=== PATIENT | female | born 1995 | race Caucasian/White ===

== ENCOUNTER 2017-07-13 18:40 | Emergency (ER) | payer SELFPAY ==
--- NOTE | 2017-07-13 21:38 | EDM.PDOC ---
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 Patient indicates she is now cramping and bleeding like a menstrual period like to be evaluated] Review of systems: As per history of present illness and below otherwise all systems reviewed and negative. Past medical history: As per history of present illness and as reviewed below otherwise noncontributory. Surgical history: As per history of present illness and as reviewed below otherwise noncontributory. Social history: No reported history of drug or alcohol abuse. Family history: As per history of present illness and as reviewed below otherwise noncontributory. Physical exam: HEENT: Atraumatic, normocephalic, pupils reactive, negative for conjunctival pallor or scleral icterus, mucous membranes moist, throat clear, neck supple, nontender, trachea midline. Lungs: Clear to auscultation, breath sounds equal bilaterally, chest nontender. Heart: S1S2, regular, negative for clicks, rubs, or JVD. Abdomen: Soft, nondistended, nontender. Negative for masses or hepatosplenomegaly. Negative for costovertebral tenderness. Pelvis: Stable nontender. Genitourinary: Deferred. Rectal: Deferred. Extremities: Atraumatic, negative for cords or calf pain. Neurovascular unremarkable. Neuro: Awake, alert, oriented. Cranial nerves II through XII unremarkable. Cerebellum unremarkable. Motor and sensory unremarkable throughout. Exam nonfocal. Global assessment is benign save the subjective complaint as noted in history of present illness HCG was negative ultrasound no showed no sign of , neither remnant nor missed AB. Diagnostics: [HCG, UA, transvaginal ultrasound,] Therapeutics: [] Impression: [Vaginal bleeding] Plan: [Follow-up with INCUBATOR TENDER] Definitive disposition and diagnosis as appropriate pending reevaluation and review of above. abdominal Pain Score (Numeric/FACES): 6 - Related Data Allergies Allergy/AdvReac Type Severity Reaction Status Date / Time cefaclor [From [facility]] Allergy Anaphylactic Verified 11/21/13 12:50 Shock Sulfa (Sulfonamide Allergy Anaphylactic Verified 03/21/14 14:58 Antibiotics) Shock Home Meds: Home Meds . [No Known Home Meds] 07/13/17 [History] Past Medical History HEENT History: Reports: None Cardiovascular History: Reports: None Respiratory History: Reports: None Gastrointestinal History: Reports: None Genitourinary History: Reports: None INCUBATOR TENDER History: Reports: Musculoskeletal History: Reports: None Neurological History: Reports: None Psychiatric History: Reports: None Endocrine/Metabolic History: Reports: Diabetes, Type I Other Endocrine/Metabolic History: no insulin Hematologic History: Reports: None Oncologic (Cancer) History: Reports: None Dermatologic History: Reports: None - Infectious Disease History Infectious Disease History: Reports: None - Past Surgical History GI Surgical History: Reports: None Female Surgical History: Reports: None Social & Family History - Family History Family Medical History: Noncontributory - Tobacco Use Smoking Status *Q: Former Smoker Used Tobacco, but Quit: Yes Month Tobacco Last Used: may 2017 Second Hand Smoke Exposure: No - Caffeine Use Caffeine Use: Reports: None - Alcohol Use Days Per Week of Alcohol Use: 0 - Recreational Drug Use Recreational Drug Use: No ED ROS GENERAL - Review of Systems Review Of Systems: See Below (History of present illness) ED EXAM, GENERAL - Physical Exam Exam: See Below (History of present illness) Course - Vital Signs Last Recorded V/S: Last Vital Signs Temp 37.1 C 07/13/17 19:07 Pulse 77 07/13/17 19:07 Resp 14 07/13/17 19:07 BP 98/62 07/13/17 19:07 Pulse Ox 96 07/13/17 19:07 - Orders/Labs/Meds Orders: Active Orders 24 hr Category Date Time Status OB 1st Tri Sgl 1st Gest [US] Stat Exams 07/13/17 19:11 Taken CULTURE URINE [RM] Stat Lab 07/13/17 19:27 Received Labs: Laboratory Tests 07/13/17 07/13/17 07/13/17 Range/Units 19:27 19:53 19:53 WBC 7.10 (4.0-11.0) K/uL RBC 4.27 L (4.30-5.90) M/uL Hgb 13.2 (12.0-16.0) g/dL Hct 39.8 (36.0-46.0) % MCV 93.2 (80.0-98.0) fL MCH 30.9 (27.0-32.0) pg MCHC 33.2 (31.0-37.0) g/dL RDW Std Deviation 44.3 (28.0-62.0) fl RDW Coeff of Shaun 13 (11.0-15.0) % Plt Count 194 (150-400) K/uL MPV 10.70 (7.40-12.00) fL Neut % (Auto) 49.6 (48.0-80.0) % Lymph % (Auto) 36.3 (16.0-40.0) % [place] % (Auto) 11.3 (0.0-15.0) % Eos % (Auto) 2.5 (0.0-7.0) % Baso % (Auto) 0.3 (0.0-1.5) % Neut # (Auto) 3.5 (1.4-5.7) K/uL Lymph # (Auto) 2.6 H (0.6-2.4) K/uL [place] # (Auto) 0.8 (0.0-0.8) K/uL Eos # (Auto) 0.2 (0.0-0.7) K/uL Baso # (Auto) 0.0 (0.0-0.1) K/uL Nucleated RBC % 0.0 /100WBC Nucleated RBCs # 0 K/uL HCG, Quant < 1.2 mIU/mL Urine Color YELLOW Urine Appearance SLT CLOUDY Urine pH 6.5 (5.0-8.0) Ur Specific [place] 1.020 (1.001-1.035) Urine Protein NEGATIVE (NEGATIVE) mg/dL Urine Glucose (UA) NEGATIVE (NEGATIVE) mg/dL Urine Ketones NEGATIVE (NEGATIVE) mg/dL Urine Occult Blood LARGE H (NEGATIVE) Urine Nitrite NEGATIVE (NEGATIVE) Urine Bilirubin NEGATIVE (NEGATIVE) Urine Urobilinogen 0.2 (<2.0) EU/dL Ur Leukocyte Esterase NEGATIVE (NEGATIVE) Urine RBC 0-3 (0-2/HPF) Urine WBC 2-4 (0-5/HPF) Ur Epithelial Cells FEW (NONE-FEW) Amorphous Sediment MODERATE (NEGATIVE) Urine Bacteria FEW (NEGATIVE) Blood Type 07/13/17 Range/Units 19:53 WBC (4.0-11.0) K/uL RBC (4.30-5.90) M/uL Hgb (12.0-16.0) g/dL Hct (36.0-46.0) % MCV (80.0-98.0) fL MCH (27.0-32.0) pg MCHC (31.0-37.0) g/dL RDW Std Deviation (28.0-62.0) fl RDW Coeff of Shaun (11.0-15.0) % Plt Count (150-400) K/uL MPV (7.40-12.00) fL Neut % (Auto) (48.0-80.0) % Lymph % (Auto) (16.0-40.0) % [place] % (Auto) (0.0-15.0) % Eos % (Auto) (0.0-7.0) % Baso % (Auto) (0.0-1.5) % Neut # (Auto) (1.4-5.7) K/uL Lymph # (Auto) (0.6-2.4) K/uL [place] # (Auto) (0.0-0.8) K/uL Eos # (Auto) (0.0-0.7) K/uL Baso # (Auto) (0.0-0.1) K/uL Nucleated RBC % /100WBC Nucleated RBCs # K/uL HCG, Quant mIU/mL Urine Color Urine Appearance Urine pH (5.0-8.0) Ur Specific [place] (1.001-1.035) Urine Protein (NEGATIVE) mg/dL Urine Glucose (UA) (NEGATIVE) mg/dL Urine Ketones (NEGATIVE) mg/dL Urine Occult Blood (NEGATIVE) Urine Nitrite (NEGATIVE) Urine Bilirubin (NEGATIVE) Urine Urobilinogen (<2.0) EU/dL Ur Leukocyte Esterase (NEGATIVE) Urine RBC (0-2/HPF) Urine WBC (0-5/HPF) Ur Epithelial Cells (NONE-FEW) Amorphous Sediment (NEGATIVE) Urine Bacteria (NEGATIVE) Blood Type AB POSITIVE Departure - Departure Time of Disposition: 21:38 Disposition: Home, Self-Care 01 Condition: Good Clinical Impression: Vaginal discharge - Discharge Information Referrals: PCP,None [Primary Care Provider] - Additional Instructions: The following information is given to patients seen in the emergency department who are being discharged to home. This information is to outline your options for follow-up care. We provide all patients seen in our emergency department with a follow-up referral. The need for follow-up, as well as the timing and circumstances, are variable depending upon the specifics of your emergency department visit. If you don't have a primary care physician on staff, we will provide you with a referral. We always advise you to contact your personal physician following an emergency department visit to inform them of the circumstance of the visit and for follow-up with them and/or the need for any referrals to a consulting specialist. The emergency department will also refer you to a specialist when appropriate. This referral assures that you have the opportunity for follow-up care with a specialist. All of these measure are taken in an effort to provide you with optimal care, which includes your follow-up. Under all circumstances we always encourage you to contact your private physician who remains a resource for coordinating your care. When calling for follow-up care, please make the office aware that this follow-up is from your recent emergency room visit. If for any reason you are refused follow-up, please contact the [facility] Emergency Department at and asked to speak to the emergency department charge nurse. Follow-up with your primary care provider or INCUBATOR TENDER as discussed Return to ED as needed as discussed - My Orders Last 24 Hours: My Active Orders 07/13/17 19:11 OB 1st Tri Sgl 1st Gest [US] Stat 07/13/17 19:27 CULTURE URINE [RM] Stat - Assessment/Plan Last 24 Hours: My Active Orders 07/13/17 19:11 OB 1st Tri Sgl 1st Gest [US] Stat 07/13/17 19:27 CULTURE URINE [RM] Stat
[2017-07-13 21:48] VITALS: BP 103/73
--- NOTE | 2017-07-14 16:12 | US ---
EXAM DATE: 07/13/17 PATIENT'S AGE: 22 Patient: SHANNON PERALES Facility: [place], [place] Site . Site : 1995 Study: US OB Pelvis [id number] 9:00:47 PM Ordering Physician: Doctor Palomo Final Report: Indication: Vaginal bleeding. Last menstrual period not stated. Findings: There is no evidence of an intrauterine gestation and the endometrium is not abnormally thickened. The right ovary measures 4.0 x 2.7 x 2.7 cm. The left ovary measures 5.8 x 2.8 x 1.8 cm. Complex cyst is noted in the right ovary measuring 1.3 x 0.9 x 1.2 cm. There is no abnormal cul-de-sac fluid or pelvic ascites. Impression: 1. No evidence of intrauterine gestation. Correlation with beta HCGs is suggested. Consider interval followup examination if deemed clinically appropriate. 2. Complex right ovarian cyst. Dictated by Lorelei Singh MD @ Jul 13 2017 9:27PM (Electronic Signature) Report Signed by Proxy. VENTURA
== END 2017-07-13 21:51 | disposition home or self-care (01) ==
LOC: MW.ED 18:40
DX: O20.9 Hemorrhage in early pregnancy, unspecified (principal); O99.281 Endocrine, nutritional and metabolic diseases complicating pregnancy, first trimester; E10.9 Type 1 diabetes mellitus without complications; Z87.891 Personal history of nicotine dependence; Z88.2 Allergy status to sulfonamides; Z88.1 Allergy status to other antibiotic agents; Z3A.01 Less than 8 weeks gestation of pregnancy
CPT/HCPCS: 36415; 76801; 76801-26; 81001; 84702; 85025; 86900; 86901; 87086; 99284; 99284-25

== ENCOUNTER 2017-09-25 03:34 | Emergency (ER) | payer MEDICAID ==
[2017-09-25] MEDS ORDERED: methylPREDNISolone Sodium Succinate 125 MG/2 ML SDV IM ONE (03:53)
[2017-09-25] MEDS ORDERED: Albuterol/Ipratropium 3.0-0.5 MG/3 ML Neb Soln NEB ONE (03:53)
--- NOTE | 2017-09-25 03:55 | EDM.PDOC ---
ED HPI GENERAL MEDICAL PROBLEM - General Chief Complaint: Respiratory Problem Stated Complaint: COUGHING, SINUS PRESSURE, VOMITING Time Seen by Provider: 09/25/17 03:54 Source of Information: Reports: Patient - History of Present Illness INITIAL COMMENTS - FREE TEXT/NARRATIVE: HISTORY AND PHYSICAL: History of present illness: [Patient with history of asthma has been having persistent cough over the last 2 -3 days as well as sinus infection over the last 7-10 days denies fever nausea vomiting chills sweats no chest pain shortness of breath headache dizziness or palpitation no bowel or urine symptoms ] Review of systems: As per history of present illness and below otherwise all systems reviewed and negative. Past medical history: As per history of present illness and as reviewed below otherwise noncontributory. Surgical history: As per history of present illness and as reviewed below otherwise noncontributory. Social history: No reported history of drug or alcohol abuse. Family history: As per history of present illness and as reviewed below otherwise noncontributory. Physical exam: HEENT: Atraumatic, normocephalic, pupils reactive, negative for conjunctival pallor or scleral icterus, mucous membranes moist, throat clear, neck supple, nontender, trachea midline. Sinus tenderness right greater than left supraorbital and maxillary sinus involvement boggy nasal mucosa nares patent tympanic membrane on the right red bulging loss of landmarks no mastoid tenderness left is clear no mastoid tenderness Lungs: Clear to auscultation, breath sounds equal bilaterally, chest nontender. Heart: S1S2, regular, negative for clicks, rubs, or JVD. Abdomen: Soft, nondistended, nontender. Negative for masses or hepatosplenomegaly. Negative for costovertebral tenderness. Pelvis: Stable nontender. Genitourinary: Deferred. Rectal: Deferred. Extremities: Atraumatic, negative for cords or calf pain. Neurovascular unremarkable. Neuro: Awake, alert, oriented. Cranial nerves II through XII unremarkable. Cerebellum unremarkable. Motor and sensory unremarkable throughout. Exam nonfocal. Diagnostics: [Chest 2 views HCG ] Therapeutics: [DuoNeb Solu-Medrol 125 mg IM ] Z-Samir Medrol dose pack HFA Impression: Acute sinusitis Right otitis media Asthma exacerbation Definitive disposition and diagnosis as appropriate pending reevaluation and review of above. 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: Musculoskeletal History: Reports: None Neurological History: Reports: None Psychiatric History: Reports: None Endocrine/Metabolic History: Reports: Diabetes, Type I Other Endocrine/Metabolic History: no insulin Hematologic History: Reports: None Oncologic (Cancer) History: Reports: None Dermatologic History: Reports: None - Infectious Disease History Infectious Disease History: Reports: None - Past Surgical History GI Surgical History: Reports: None Female Surgical History: Reports: None Social & Family History - Family History Family Medical History: Noncontributory - Tobacco Use Smoking Status *Q: Former Smoker Used Tobacco, but Quit: Yes Month/Year Tobacco Last Used: may 2017 Second Hand Smoke Exposure: No - Caffeine Use Caffeine Use: Reports: None - Alcohol Use Days Per Week of Alcohol Use: 0 - Recreational Drug Use Recreational Drug Use: No ED ROS GENERAL - Review of Systems Review Of Systems: ROS reveals no pertinent complaints other than HPI. ED EXAM, GENERAL - Physical Exam Exam: See Below Course - Vital Signs Last Recorded V/S: Last Vital Signs Temp 98.9 F 09/25/17 03:55 Pulse 86 09/25/17 03:55 Resp 20 09/25/17 03:55 BP 101/59 L 09/25/17 03:55 Pulse Ox 97 09/25/17 03:55 - Orders/Labs/Meds Orders: Active Orders 24 hr Category Date Time Status RT Aerosol Therapy [RC] ASDIRECTED Care 09/25/17 03:53 Active Chest 2V [CR] Stat Exams 09/25/17 03:50 Taken Labs: Laboratory Tests 09/25/17 Range/Units 04:20 Urine HCG, Qual NEGATIVE (NEGATIVE) Meds: Medications Discontinued Medications Generic Name Dose Route Start Last Admin Trade Name Freq PRN Reason Stop Dose Admin Albuterol/Ipratropium 3 ml 09/25/17 03:53 09/25/17 04:18 Duoneb 3.0-0.5 Mg/3 Ml NEB 09/25/17 03:54 3 ml ONETIME ONE Administration Methylprednisolone Sodium Succinate 125 mg 09/25/17 03:53 09/25/17 04:17 Solu-Medrol IM 09/25/17 03:54 125 mg ONETIME ONE Administration Departure - Departure Time of Disposition: 05:51 Disposition: Home, Self-Care 01 Condition: Good Clinical Impression: Exacerbation of asthma, Acute sinusitis - Discharge Information Referrals: PCP,None [Primary Care Provider] - Forms: ED Department Discharge Additional Instructions: Medication as prescribed Return if symptoms persist or worsen Follow-up with primary care in 2 weeks sooner as needed [facility] [address] [place] [id number] The following information is given to patients seen in the emergency department who are being discharged to home. This information is to outline your options for follow-up care. We provide all patients seen in our emergency department with a follow-up referral. The need for follow-up, as well as the timing and circumstances, are variable depending upon the specifics of your emergency department visit. If you don't have a primary care physician on staff, we will provide you with a referral. We always advise you to contact your personal physician following an emergency department visit to inform them of the circumstance of the visit and for follow-up with them and/or the need for any referrals to a consulting specialist. The emergency department will also refer you to a specialist when appropriate. This referral assures that you have the opportunity for follow-up care with a specialist. All of these measure are taken in an effort to provide you with optimal care, which includes your follow-up. Under all circumstances we always encourage you to contact your private physician who remains a resource for coordinating your care. When calling for follow-up care, please make the office aware that this follow-up is from your recent emergency room visit. If for any reason you are refused follow-up, please contact the [facility] emergency department at and asked to speak to the emergency department charge nurse. - My Orders Last 24 Hours: My Active Orders 09/25/17 03:50 Chest 2V [CR] Stat 09/25/17 03:53 RT Aerosol Therapy [RC] ASDIRECTED - Assessment/Plan Last 24 Hours: My Active Orders 09/25/17 03:50 Chest 2V [CR] Stat 09/25/17 03:53 RT Aerosol Therapy [RC] ASDIRECTED
[2017-09-25 06:12] VITALS: BP 106/58
--- NOTE | 2017-09-25 17:28 | CR ---
EXAM DATE: 09/25/17 PATIENT'S AGE: 22 Patient: SHANNON PERALES Facility: [place], [place] Site . Site : 1995 Study: XRay Chest [id number]/19/2018 5:22:25 AM Ordering Physician: Lenore Le Final Report: INDICATION: cough w/ fever x 3 days TECHNIQUE: Chest 2 views. COMPARISON: None. FINDINGS: Cardiovascular and mediastinum: Heart size and vasculature are normal in caliber and appearance. Mediastinum is within normal limits. Lungs and pleural spaces: Lungs are clear. No sign of infiltrate or mass. No sign of pleural effusion. No pneumothorax. Bones and soft tissues: No significant findings. IMPRESSION: Unremarkable chest. Dictated by: Romel Cardenas MD @ 09/25/2017 05:28:00 (Electronic Signature) Report Signed by Proxy. VENTURA
== END 2017-09-25 06:13 | disposition home or self-care (01) ==
LOC: MW.ED 03:34
DX: J01.90 Acute sinusitis, unspecified (principal); J45.901 Unspecified asthma with (acute) exacerbation; H66.91 Otitis media, unspecified, right ear; E10.9 Type 1 diabetes mellitus without complications; Z88.2 Allergy status to sulfonamides; Z88.1 Allergy status to other antibiotic agents; Z87.891 Personal history of nicotine dependence
CPT/HCPCS: 71046; 81025; 94640; 96372; 99284; J2930; 99283

== ENCOUNTER 2017-12-05 20:59 | Emergency (ER) | payer MEDICAID, OTHER ==
[2017-12-05] MEDS ORDERED: Sodium Chloride 0.9% 1,000 ML IV ONE (21:28)
[2017-12-05] MEDS ORDERED: Acetaminophen 500 MG Tab PO ONE (21:37)
--- NOTE | 2017-12-05 21:39 | EDM.PDOC ---
ED HPI GENERAL MEDICAL PROBLEM - General Chief Complaint: SWITCHMAN Problem Stated Complaint: 8 WEEKS/ABDOMINAL PAIN/HEADACHE Time Seen by Provider: 12/05/17 21:00 Source of Information: Reports: Patient History Limitations: Reports: No Limitations - History of Present Illness INITIAL COMMENTS - FREE TEXT/NARRATIVE: HISTORY AND PHYSICAL: History of present illness: 22-year-old 8 week female presented emergency department with chief complaint of nausea, abdominal pain, and headache 1 day. Patient states that around 10 this morning and developed a mild headache. She took #2 200 mg Tylenol. This did not seem to help much. She also felt some nausea began have some generalized abdominal pain. She did not vomit. States that she did not have any spotting or bleeding. States that her headache is her main complaint seems to be better with laying still and worse with movement. Abdominal pain is more right lower quadrant. She denies any associated fevers, chills, malaise. Up until that she has been feeling her normal self. She has seen a provider [facility] and was confirmed to be time. Patient still has gallbladder and appendix. Of note patient states that she gets very nauseous with Zofran. Review of systems: As per history of present illness and below otherwise all systems reviewed and negative. Past medical history: As per history of present illness and as reviewed below otherwise noncontributory. Surgical history: As per history of present illness and as reviewed below otherwise noncontributory. Social history: No reported history of drug or alcohol abuse. Family history: As per history of present illness and as reviewed below otherwise noncontributory. Physical exam: HEENT: Atraumatic, normocephalic, pupils reactive, negative for conjunctival pallor or scleral icterus, mucous membranes moist, throat clear, neck supple, nontender, trachea midline. Lungs: Clear to auscultation, breath sounds equal bilaterally, chest nontender. Heart: S1S2, regular, negative for clicks, rubs, or JVD. Abdomen: Soft, nondistended, mild tenderness to deep palpation in the right lower quadrant as well as right upper quadrant no rebound tenderness. Negative for masses or hepatosplenomegaly. Negative for costovertebral tenderness. Pelvis: Stable nontender. Genitourinary: Deferred. Rectal: Deferred. Extremities: Atraumatic, negative for cords or calf pain. Neurovascular unremarkable. Neuro: Awake, alert, oriented. Cranial nerves II through XII unremarkable. Cerebellum unremarkable. Motor and sensory unremarkable throughout. Exam nonfocal. Diagnostics: CBC, CMP, UA/UC, hCG Quant Therapeutics: 2 L normal saline, Tylenol 1000 mg by mouth, meclizine 25 mg by mouth Impression: Tension headache Dehydration Nausea without vomiting Viral gastroenteritis Plan: CBC, CMP, UA were all unremarkable. HCG Quant level was appropriate for a 7-8 week gestational . Patient was given 2 L of normal saline as well as Tylenol 1000 mg and Meclizine 25 mg by mouth which helped with her nausea and headache. Patient still had a mild headache but it had much improved. Secondary to her symptoms she most likely had become dehydrated and has a touch of viral Astra enteritis which had complicated issue. With fluid hydration as well as antiemetics and Tylenol patient's status improved. At approximately 11: 30 PM patient was requesting to be discharged. Secondary to improved status she was discharged in good condition with instructions to take Tylenol up to 4000 mg daily or ibuprofen up to 3000 mg for any continued headache. She should also return to the emergency department if she has any new or worsening symptoms. She should follow-up with her SWITCHMAN as well as primary care physician. H\She was in understanding. abdomen Pain Score (Numeric/FACES): 7 head Pain Score (Numeric/FACES): 6 - Related Data Allergies Allergy/AdvReac Type Severity Reaction Status Date / Time Sulfa (Sulfonamide Allergy Intermediate Anaphylactic Verified 12/05/17 21:15 Antibiotics) Shock cefaclor [From Ceclor] Allergy Anaphylactic Verified 12/05/17 21:15 Shock latex Allergy Itching Verified 12/05/17 21:16 Home Meds: Home Meds Multivitamin [Multivitamins] 1 each PO DAILY 09/25/17 [History] Past Medical History HEENT History: Reports: Impaired Vision Cardiovascular History: Reports: None Respiratory History: Reports: Asthma Gastrointestinal History: Reports: None Genitourinary History: Reports: None SWITCHMAN History: Reports: Musculoskeletal History: Reports: SLE Neurological History: Reports: None Psychiatric History: Reports: None Endocrine/Metabolic History: Reports: Diabetes, Type I Other Endocrine/Metabolic History: no insulin Hematologic History: Reports: None Immunologic History: Reports: SLE Oncologic (Cancer) History: Reports: None Dermatologic History: Reports: None - Infectious Disease History Infectious Disease History: Reports: None - Past Surgical History HEENT Surgical History: Reports: Tonsillectomy GI Surgical History: Reports: None Female Surgical History: Reports: Section, D&C Musculoskeletal Surgical History: Reports: Shoulder Surgery Social & Family History - Family History Family Medical History: Noncontributory - Tobacco Use Smoking Status *Q: Former Smoker Used Tobacco, but Quit: Yes Month/Year Tobacco Last Used: 1 - Caffeine Use Caffeine Use: Reports: None - Recreational Drug Use Recreational Drug Use: No ED ROS GENERAL - Review of Systems Review Of Systems: See Below ED EXAM, GENERAL - Physical Exam Exam: See Below Course - Vital Signs Last Recorded V/S: Last Vital Signs Temp 98 F 12/05/17 20:59 Pulse 65 12/05/17 22:54 Resp 18 12/05/17 22:54 BP 103/51 L 12/05/17 22:54 Pulse Ox 98 12/05/17 22:54 - Orders/Labs/Meds Orders: Active Orders 24 hr Category Date Time Status CULTURE URINE [RM] Stat Lab 12/05/17 21:30 Ordered UA W/MICROSCOPIC [URIN] Stat Lab 12/05/17 21:30 Ordered Vitamin B6-pyridOXINE Med 12/05/17 21:45 Active 25 mg PO DAILY Medication Orders Pyridoxine HCl (Vitamin B6-Pyridoxine) 25 mg PO DAILY [facility] Last Admin: 12/05/17 22:09 Dose: Labs: Laboratory Tests 12/05/17 12/05/17 12/05/17 Range/Units 21:30 21:37 21:37 WBC 9.15 (4.0-11.0) K/uL RBC 4.06 L (4.30-5.90) M/uL Hgb 12.9 (12.0-16.0) g/dL Hct 37.4 (36.0-46.0) % MCV 92.1 (80.0-98.0) fL MCH 31.8 (27.0-32.0) pg MCHC 34.5 (31.0-37.0) g/dL RDW Std Deviation 43.2 (28.0-62.0) fl RDW Coeff of Shaun 13 (11.0-15.0) % Plt Count 191 (150-400) K/uL MPV 11.00 (7.40-12.00) fL Neut % (Auto) 57.1 (48.0-80.0) % Lymph % (Auto) 29.6 (16.0-40.0) % Bartholomew % (Auto) 10.5 (0.0-15.0) % Eos % (Auto) 2.5 (0.0-7.0) % Baso % (Auto) 0.3 (0.0-1.5) % Neut # (Auto) 5.2 (1.4-5.7) K/uL Lymph # (Auto) 2.7 H (0.6-2.4) K/uL Bartholomew # (Auto) 1.0 H (0.0-0.8) K/uL Eos # (Auto) 0.2 (0.0-0.7) K/uL Baso # (Auto) 0.0 (0.0-0.1) K/uL Nucleated RBC % 0.0 /100WBC Nucleated RBCs # 0 K/uL Sodium 138 (136-145) mmol/L Potassium 3.8 (3.5-5.1) mmol/L Chloride 105 (98-107) mmol/L Carbon Dioxide 26.2 (21.0-32.0) mmol/L BUN 14 (7.0-18.0) mg/dL Creatinine 0.8 (0.6-1.0) mg/dL Est Cr Clr Drug Dosing 96.06 mL/min Estimated GFR (MDRD) > 60.0 ml/min Glucose 140 H (74-106) mg/dL Calcium 8.7 (8.5-10.1) mg/dL Magnesium (1.5-2.0) mg/dL Total Bilirubin 0.2 (0.2-1.0) mg/dL AST 13 L (15-37) IU/L ALT 13 L (14-63) IU/L Alkaline Phosphatase 62 (46-116) U/L Total Protein 7.0 (6.4-8.2) g/dL Albumin 3.6 (3.4-5.0) g/dL Globulin 3.4 (2.0-3.5) g/dL Albumin/Globulin Ratio 1.1 L (1.3-2.8) HCG, Quant 09717.0 mIU/mL Urine Color YELLOW Urine Appearance CLEAR Urine pH 5.5 (5.0-8.0) Ur Specific [place] 1.025 (1.001-1.035) Urine Protein NEGATIVE (NEGATIVE) mg/dL Urine Glucose (UA) 250 H (NEGATIVE) mg/dL Urine Ketones NEGATIVE (NEGATIVE) mg/dL Urine Occult Blood NEGATIVE (NEGATIVE) Urine Nitrite NEGATIVE (NEGATIVE) Urine Bilirubin NEGATIVE (NEGATIVE) Urine Urobilinogen 0.2 (<2.0) EU/dL Ur Leukocyte Esterase NEGATIVE (NEGATIVE) Urine RBC NONE SEEN (0-2/HPF) Urine WBC 0-3 (0-5/HPF) Ur Epithelial Cells RARE (NONE-FEW) Urine Bacteria RARE (NEGATIVE) Urine Mucus LIGHT (NONE-MOD) 12/05/17 Range/Units 21:37 WBC (4.0-11.0) K/uL RBC (4.30-5.90) M/uL Hgb (12.0-16.0) g/dL Hct (36.0-46.0) % MCV (80.0-98.0) fL MCH (27.0-32.0) pg MCHC (31.0-37.0) g/dL RDW Std Deviation (28.0-62.0) fl RDW Coeff of Shaun (11.0-15.0) % Plt Count (150-400) K/uL MPV (7.40-12.00) fL Neut % (Auto) (48.0-80.0) % Lymph % (Auto) (16.0-40.0) % Bartholomew % (Auto) (0.0-15.0) % Eos % (Auto) (0.0-7.0) % Baso % (Auto) (0.0-1.5) % Neut # (Auto) (1.4-5.7) K/uL Lymph # (Auto) (0.6-2.4) K/uL Bartholomew # (Auto) (0.0-0.8) K/uL Eos # (Auto) (0.0-0.7) K/uL Baso # (Auto) (0.0-0.1) K/uL Nucleated RBC % /100WBC Nucleated RBCs # K/uL Sodium (136-145) mmol/L Potassium (3.5-5.1) mmol/L Chloride (98-107) mmol/L Carbon Dioxide (21.0-32.0) mmol/L BUN (7.0-18.0) mg/dL Creatinine (0.6-1.0) mg/dL Est Cr Clr Drug Dosing mL/min Estimated GFR (MDRD) ml/min Glucose (74-106) mg/dL Calcium (8.5-10.1) mg/dL Magnesium 1.7 (1.5-2.0) mg/dL Total Bilirubin (0.2-1.0) mg/dL AST (15-37) IU/L ALT (14-63) IU/L Alkaline Phosphatase (46-116) U/L Total Protein (6.4-8.2) g/dL Albumin (3.4-5.0) g/dL Globulin (2.0-3.5) g/dL Albumin/Globulin Ratio (1.3-2.8) HCG, Quant mIU/mL Urine Color Urine Appearance Urine pH (5.0-8.0) Ur Specific [place] (1.001-1.035) Urine Protein (NEGATIVE) mg/dL Urine Glucose (UA) (NEGATIVE) mg/dL Urine Ketones (NEGATIVE) mg/dL Urine Occult Blood (NEGATIVE) Urine Nitrite (NEGATIVE) Urine Bilirubin (NEGATIVE) Urine Urobilinogen (<2.0) EU/dL Ur Leukocyte Esterase (NEGATIVE) Urine RBC (0-2/HPF) Urine WBC (0-5/HPF) Ur Epithelial Cells (NONE-FEW) Urine Bacteria (NEGATIVE) Urine Mucus (NONE-MOD) Meds: Medications Generic Name Dose Route Start Last Admin Trade Name Freq PRN Reason Stop Dose Admin Pyridoxine HCl 25 mg 12/05/17 21:45 12/05/17 22:09 Vitamin B6-Pyridoxine PO Not Given DAILY AUGUSTINE Discontinued Medications Generic Name Dose Route Start Last Admin Trade Name Freq PRN Reason Stop Dose Admin Acetaminophen 1,000 mg 12/05/17 21:37 12/05/17 22:08 Tylenol Extra Strength PO 12/05/17 21:38 1,000 mg ONETIME ONE Administration Sodium Chloride 1,000 mls @ 999 mls/hr 12/05/17 21:28 12/05/17 21:40 Normal Saline IV 12/05/17 22:28 999 mls/hr STAT ONE Administration Sodium Chloride 1,000 mls @ 999 mls/hr 12/05/17 21:30 12/05/17 22:56 Normal Saline IV 12/05/17 22:30 999 mls/hr STAT ONE Administration Meclizine HCl 25 mg 12/05/17 21:59 12/05/17 22:10 Antivert PO 12/05/17 22:00 25 mg ONETIME ONE Administration Departure - Departure Time of Disposition: 23:44 Disposition: Home, Self-Care 01 Condition: Good Clinical Impression: Viral gastroenteritis - Discharge Information Referrals: Alexey Nicholas MD [Primary Care Provider] - Forms: ED Department Discharge Additional Instructions: My general discharge The following information is given to patients seen in the emergency department who are being discharged to home. This information is to outline your options for follow-up care. We provide all patients seen in our emergency department with a follow-up referral. The need for follow-up, as well as the timing and circumstances, are variable depending upon the specifics of your emergency department visit. If you don't have a primary care physician on staff, we will provide you with a referral. We always advise you to contact your personal physician following an emergency department visit to inform them of the circumstance of the visit and for follow-up with them and/or the need for any referrals to a consulting specialist. The emergency department will also refer you to a specialist when appropriate. This referral assures that you have the opportunity for follow-up care with a specialist. All of these measure are taken in an effort to provide you with optimal care, which includes your follow-up. Under all circumstances we always encourage you to contact your private physician who remains a resource for coordinating your care. When calling for follow-up care, please make the office aware that this follow-up is from your recent emergency room visit. If for any reason you are refused follow-up, please contact the [facility] Emergency Department at and asked to speak to the emergency department charge nurse. [facility] [address] [place] [id number] [facility] - [facility] [address] [place] [phone] [facility] [address] [place] [id number] - My Orders Last 24 Hours: My Active Orders 12/05/17 21:30 CULTURE URINE [RM] Stat UA W/MICROSCOPIC [URIN] Stat 12/05/17 21:45 Vitamin B6-pyridOXINE 25 mg PO DAILY - Assessment/Plan Last 24 Hours: My Active Orders 12/05/17 21:30 CULTURE URINE [RM] Stat UA W/MICROSCOPIC [URIN] Stat 12/05/17 21:45 Vitamin B6-pyridOXINE 25 mg PO DAILY
[2017-12-05] MEDS ORDERED: Vitamin B6-pyridOXINE 50 MG Tab PO SCH (21:45)
[2017-12-05] MEDS ORDERED: Meclizine 25 MG Tab PO ONE (21:59)
[2017-12-05 22:22] LABS: CHLORIDE,CL 105 mmol/L (98-107); SODIUM,NA 138 mmol/L (136-145)
[2017-12-05] MEDS: Sodium Chloride 0.9% 1,000 ML IV ONE ×2 (22:34→22:56)
[2017-12-05 23:54] VITALS: BP 108/51
== END 2017-12-05 23:50 | disposition home or self-care (01) ==
LOC: MW.ED 20:59
DX: O99.611 Diseases of the digestive system complicating pregnancy, first trimester (principal); A08.4 Viral intestinal infection, unspecified; O99.281 Endocrine, nutritional and metabolic diseases complicating pregnancy, first trimester; E86.0 Dehydration; E10.9 Type 1 diabetes mellitus without complications; O99.351 Diseases of the nervous system complicating pregnancy, first trimester; G44.209 Tension-type headache, unspecified, not intractable; R11.0 Nausea; Z88.2 Allergy status to sulfonamides; Z91.040 Latex allergy status; Z87.891 Personal history of nicotine dependence; Z3A.08 8 weeks gestation of pregnancy
CPT/HCPCS: 36415; 80053; 81001; 83735; 84702; 85025; 87086; 96360; 96361; 99284; A9270; J7040; 99283

== ENCOUNTER 2018-01-01 00:08 | Emergency (ER) | payer MEDICAID ==
[2018-01-01 00:50] VITALS: BP 115/65
[2018-01-01] MEDS ORDERED: Sodium Chloride 0.9% 2.5 ML Syringe FLUSH PRN (01:09)
[2018-01-01] MEDS ORDERED: diphenhydrAMINE 50 MG/ML SDV IVPUSH ONE (01:09)
[2018-01-01] MEDS ORDERED: Metoclopramide 10 MG/2 ML SDV IVPUSH ONE (01:09)
[2018-01-01] MEDS ORDERED: Sodium Chloride 0.9% 10 ML Syringe FLUSH PRN (01:09)
[2018-01-01] MEDS ORDERED: Sodium Chloride 0.9% 1,000 ML IV ONE (01:09)
--- NOTE | 2018-01-01 01:11 | EDM.PDOC ---
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 The patient has had nausea and vomiting throughout her and is a type I diabetic. She has endocrinologists in [place] as well as an appointment with maternal medicine at 20 weeks . These appointments are all because of her frequent miscarriages. The patient tells me she is not worried about the vaginal spotting as that has happened on and off through the but she is worried about the right upper abdominal pain and she has had "gallbladder trouble" in the past. She has not had diarrhea she's not had fevers chills chest pain or shortness of breath and no flank pain or urinary complaints. Patient tells me that with prior she was unable to take Zofran and does not want that. Review of systems: As per history of present illness and below otherwise all systems reviewed and negative. Past medical history: As per history of present illness and as reviewed below otherwise noncontributory. Surgical history: As per history of present illness and as reviewed below otherwise noncontributory. Social history: No reported history of drug or alcohol abuse. Family history: As per history of present illness and as reviewed below otherwise noncontributory. Physical exam: General: Well-developed well-nourished thin female who does not have a tone smell on her breath and vital signs are noted by me HEENT: Atraumatic, normocephalic, pupils reactive, negative for conjunctival pallor or scleral icterus, mucous membranes tacky throat clear, neck supple, nontender, trachea midline. Lungs: Clear to auscultation, breath sounds equal bilaterally, chest nontender. Heart: S1S2, regular, negative for clicks, rubs, or JVD. Abdomen: Soft, nondistended, bowel sounds are very hyperactive and there is tympany on percussion of the mid abdomen. There is some tenderness in the right upper and right mid quadrant but is very mild and there is no rebound or guarding.. Negative for masses or hepatosplenomegaly. Pelvis: Stable nontender. Genitourinary: Deferred. Rectal: Deferred. Extremities: Atraumatic, negative for cords or calf pain. Neurovascular unremarkable. Neuro: Awake, alert, oriented. Cranial nerves II through XII unremarkable. Cerebellum unremarkable. Motor and sensory unremarkable throughout. Exam nonfocal. Diagnostics: CBC CMP amylase lipase Accu-Chek serum ketones serum quantitative hCG UA Patient told me she would like to hold off doing any ultrasound until we check the labs. The patient is currently asleep in the ED and has not had any vomiting and no longer has any abdominal pain. She is aware that all of her lab tests are within normal limits and I will discuss the case with Dr. Lubin. I will plan discharge. The patient follows with Dr. Gibson in the clinic. Case was discussed with Dr. Lubin at 3:15 AM and she agrees with no prescriptions for meds for home and the clinic will contact her for follow-up and further management. She is aware that we did not do an ultrasound as the patient would like to defer and she is currently not having any vaginal bleeding or any more abdominal pain. Therapeutics: IV fluids Reglan Benadryl Impression: Upper abdominal pain, first trimester , vomiting Definitive disposition and diagnosis as appropriate pending reevaluation and review of above. abdomen Pain Score (Numeric/FACES): 7 - Related Data Allergies Allergy/AdvReac Type Severity Reaction Status Date / Time Sulfa (Sulfonamide Allergy Intermediate Anaphylactic Verified 12/05/17 21:15 Antibiotics) Shock cefaclor [From Ceclor] Allergy Anaphylactic Verified 12/05/17 21:15 Shock latex Allergy Itching Verified 12/05/17 21:16 Home Meds: Home Meds Multivitamin [Multivitamins] 1 each PO DAILY 09/25/17 [History] Past Medical History HEENT History: Reports: Impaired Vision Cardiovascular History: Reports: None Respiratory History: Reports: Asthma Gastrointestinal History: Reports: None Genitourinary History: Reports: None 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: Musculoskeletal History: Reports: SLE Neurological History: Reports: None Psychiatric History: Reports: None Endocrine/Metabolic History: Reports: Diabetes, Type I Other Endocrine/Metabolic History: no insulin Hematologic History: Reports: None Immunologic History: Reports: SLE Oncologic (Cancer) History: Reports: None Dermatologic History: Reports: None - Infectious Disease History Infectious Disease History: Reports: None - Past Surgical History HEENT Surgical History: Reports: Tonsillectomy GI Surgical History: Reports: None Female Surgical History: Reports: Section, D&C Musculoskeletal Surgical History: Reports: Shoulder Surgery Social & Family History - Family History Family Medical History: Noncontributory - Caffeine Use Caffeine Use: Reports: None ED ROS GENERAL - Review of Systems Review Of Systems: ROS reveals no pertinent complaints other than HPI. ED EXAM, GENERAL - Physical Exam Exam: See Below (See dictation) Course - Vital Signs Last Recorded V/S: Last Vital Signs Temp 37.2 C 01/01/18 00:08 Pulse 68 01/01/18 00:08 Resp 16 01/01/18 00:08 BP 115/65 01/01/18 00:08 Pulse Ox 97 01/01/18 00:08 - Orders/Labs/Meds Orders: Active Orders 24 hr Category Date Time Status Blood Glucose Check, Bedside [RC] ONETIME Care 01/01/18 01:11 Active UA W/MICROSCOPIC [URIN] Stat Lab 01/01/18 01:45 Ordered Sodium Chloride 0.9% [Saline Flush] Med 01/01/18 01:09 Active 10 ml FLUSH ASDIRECTED PRN Sodium Chloride 0.9% [Saline Flush] Med 01/01/18 01:09 Active 2.5 ml FLUSH ASDIRECTED PRN Saline Lock Insert [OM.PC] Stat Oth 01/01/18 01:09 Ordered Medication Orders Sodium Chloride (Saline Flush) 10 ml FLUSH ASDIRECTED PRN PRN Reason: Keep Vein Open Sodium Chloride (Saline Flush) 2.5 ml FLUSH ASDIRECTED PRN PRN Reason: Keep Vein Open Labs: Laboratory Tests 01/01/18 01/01/18 01/01/18 Range/Units 01:33 01:45 01:45 WBC 9.58 (4.0-11.0) K/uL RBC 4.12 L (4.30-5.90) M/uL Hgb 12.9 (12.0-16.0) g/dL Hct 37.4 (36.0-46.0) % MCV 90.8 (80.0-98.0) fL MCH 31.3 (27.0-32.0) pg MCHC 34.5 (31.0-37.0) g/dL RDW Std Deviation 41.6 (28.0-62.0) fl RDW Coeff of Shaun 13 (11.0-15.0) % Plt Count 187 (150-400) K/uL MPV 10.70 (7.40-12.00) fL Neut % (Auto) 57.5 (48.0-80.0) % Lymph % (Auto) 28.4 (16.0-40.0) % Tripp % (Auto) 11.7 (0.0-15.0) % Eos % (Auto) 2.2 (0.0-7.0) % Baso % (Auto) 0.2 (0.0-1.5) % Neut # (Auto) 5.5 (1.4-5.7) K/uL Lymph # (Auto) 2.7 H (0.6-2.4) K/uL Tripp # (Auto) 1.1 H (0.0-0.8) K/uL Eos # (Auto) 0.2 (0.0-0.7) K/uL Baso # (Auto) 0.0 (0.0-0.1) K/uL Nucleated RBC % 0.0 /100WBC Nucleated RBCs # 0 K/uL Sodium (136-145) mmol/L Potassium (3.5-5.1) mmol/L Chloride (98-107) mmol/L Carbon Dioxide (21.0-32.0) mmol/L BUN (7.0-18.0) mg/dL Creatinine (0.6-1.0) mg/dL Est Cr Clr Drug Dosing mL/min Estimated GFR (MDRD) ml/min Glucose (74-106) mg/dL POC Glucose 114 H (60-110) mg/dL Calcium (8.5-10.1) mg/dL Total Bilirubin (0.2-1.0) mg/dL AST (15-37) IU/L ALT (14-63) IU/L Alkaline Phosphatase (46-116) U/L Total Protein (6.4-8.2) g/dL Albumin (3.4-5.0) g/dL Globulin (2.0-3.5) g/dL Albumin/Globulin Ratio (1.3-2.8) Amylase (25-115) U/L Lipase (73-393) U/L HCG, Quant mIU/mL Urine Color YELLOW Urine Appearance CLOUDY Urine pH 7.5 (5.0-8.0) Ur Specific [place] 1.015 (1.001-1.035) Urine Protein NEGATIVE (NEGATIVE) mg/dL Urine Glucose (UA) 250 H (NEGATIVE) mg/dL Urine Ketones NEGATIVE (NEGATIVE) mg/dL Urine Occult Blood NEGATIVE (NEGATIVE) Urine Nitrite NEGATIVE (NEGATIVE) Urine Bilirubin NEGATIVE (NEGATIVE) Urine Urobilinogen 0.2 (<2.0) EU/dL Ur Leukocyte Esterase NEGATIVE (NEGATIVE) Urine RBC 0-2 (0-2/HPF) Urine WBC 1-3 (0-5/HPF) Ur Epithelial Cells FEW (NONE-FEW) Amorphous Sediment MODERATE (NEGATIVE) Urine Bacteria FEW (NEGATIVE) Ketones (NEG) 01/01/18 01/01/18 Range/Units 01:45 01:45 WBC (4.0-11.0) K/uL RBC (4.30-5.90) M/uL Hgb (12.0-16.0) g/dL Hct (36.0-46.0) % MCV (80.0-98.0) fL MCH (27.0-32.0) pg MCHC (31.0-37.0) g/dL RDW Std Deviation (28.0-62.0) fl RDW Coeff of Shaun (11.0-15.0) % Plt Count (150-400) K/uL MPV (7.40-12.00) fL Neut % (Auto) (48.0-80.0) % Lymph % (Auto) (16.0-40.0) % Tripp % (Auto) (0.0-15.0) % Eos % (Auto) (0.0-7.0) % Baso % (Auto) (0.0-1.5) % Neut # (Auto) (1.4-5.7) K/uL Lymph # (Auto) (0.6-2.4) K/uL Tripp # (Auto) (0.0-0.8) K/uL Eos # (Auto) (0.0-0.7) K/uL Baso # (Auto) (0.0-0.1) K/uL Nucleated RBC % /100WBC Nucleated RBCs # K/uL Sodium 138 (136-145) mmol/L Potassium 3.8 (3.5-5.1) mmol/L Chloride 104 (98-107) mmol/L Carbon Dioxide 24.9 (21.0-32.0) mmol/L BUN 12 (7.0-18.0) mg/dL Creatinine 0.8 (0.6-1.0) mg/dL Est Cr Clr Drug Dosing 96.06 mL/min Estimated GFR (MDRD) > 60.0 ml/min Glucose 116 H (74-106) mg/dL POC Glucose (60-110) mg/dL Calcium 8.5 (8.5-10.1) mg/dL Total Bilirubin 0.2 (0.2-1.0) mg/dL AST 12 L (15-37) IU/L ALT 12 L (14-63) IU/L Alkaline Phosphatase 58 (46-116) U/L Total Protein 6.8 (6.4-8.2) g/dL Albumin 3.5 (3.4-5.0) g/dL Globulin 3.3 (2.0-3.5) g/dL Albumin/Globulin Ratio 1.1 L (1.3-2.8) Amylase 74 (25-115) U/L Lipase 319 (73-393) U/L HCG, Quant 320627.0 mIU/mL Urine Color Urine Appearance Urine pH (5.0-8.0) Ur Specific [place] (1.001-1.035) Urine Protein (NEGATIVE) mg/dL Urine Glucose (UA) (NEGATIVE) mg/dL Urine Ketones (NEGATIVE) mg/dL Urine Occult Blood (NEGATIVE) Urine Nitrite (NEGATIVE) Urine Bilirubin (NEGATIVE) Urine Urobilinogen (<2.0) EU/dL Ur Leukocyte Esterase (NEGATIVE) Urine RBC (0-2/HPF) Urine WBC (0-5/HPF) Ur Epithelial Cells (NONE-FEW) Amorphous Sediment (NEGATIVE) Urine Bacteria (NEGATIVE) Ketones NEGATIVE (NEG) Meds: Medications Generic Name Dose Route Start Last Admin Trade Name Freq PRN Reason Stop Dose Admin Sodium Chloride 10 ml 01/01/18 01:09 Saline Flush FLUSH ASDIRECTED PRN Keep Vein Open Sodium Chloride 2.5 ml 01/01/18 01:09 Saline Flush FLUSH ASDIRECTED PRN Keep Vein Open Discontinued Medications Generic Name Dose Route Start Last Admin Trade Name Jesse PRN Reason Stop Dose Admin Diphenhydramine HCl 25 mg 01/01/18 01:09 01/01/18 02:07 Benadryl IVPUSH 01/01/18 01:10 25 mg ONETIME ONE Administration Sodium Chloride 1,000 mls @ 999 mls/hr 01/01/18 01:09 01/01/18 02:04 Normal Saline IV 01/01/18 02:09 999 mls/hr STAT ONE Administration Metoclopramide HCl 10 mg 01/01/18 01:09 01/01/18 02:06 Reglan IVPUSH 01/01/18 01:10 10 mg ONETIME ONE Administration Departure - Departure Time of Disposition: 03:17 Disposition: Home, Self-Care 01 Condition: Good Clinical Impression: Nausea and vomiting, Upper abdominal pain, First trimester - Discharge Information Referrals: Mahesh Doherty MD [Primary Care Provider] - Forms: ED Department Discharge Additional Instructions: The following information is given to patients seen in the emergency department who are being discharged to home. This information is to outline your options for follow-up care. We provide all patients seen in our emergency department with a follow-up referral. The need for follow-up, as well as the timing and circumstances, are variable depending upon the specifics of your emergency department visit. If you don't have a primary care physician on staff, we will provide you with a referral. We always advise you to contact your personal physician following an emergency department visit to inform them of the circumstance of the visit and for follow-up with them and/or the need for any referrals to a consulting specialist. The emergency department will also refer you to a specialist when appropriate. This referral assures that you have the opportunity for followup care with a specialist. All of these measure are taken in an effort to provide you with optimal care, which includes your followup. Under all circumstances we always encourage you to contact your private physician who remains a resource for coordinating your care. When calling for followup care, please make the office aware that this follow-up is from your recent emergency room visit. If for any reason you are refused follow-up, please contact the [facility] emergency department at and ask to speak to the emergency department charge nurse. [facility] [address] [place] [id number] Push small sips of fluids and small bland bites and please contact [facility] first thing in the morning or they will contact you for a follow-up appointment. They will discuss with you further management of the nausea and vomiting. Return to ER as needed and as discussed - My Orders Last 24 Hours: My Active Orders 01/01/18 01:09 Sodium Chloride 0.9% [Saline Flush] 10 ml FLUSH ASDIRECTED PRN Sodium Chloride 0.9% [Saline Flush] 2.5 ml FLUSH ASDIRECTED PRN Saline Lock Insert [OM.PC] Stat 01/01/18 01:11 Blood Glucose Check, Bedside [RC] ONETIME 01/01/18 01:45 UA W/MICROSCOPIC [URIN] Stat - Assessment/Plan Last 24 Hours: My Active Orders 01/01/18 01:09 Sodium Chloride 0.9% [Saline Flush] 10 ml FLUSH ASDIRECTED PRN Sodium Chloride 0.9% [Saline Flush] 2.5 ml FLUSH ASDIRECTED PRN Saline Lock Insert [OM.PC] Stat 01/01/18 01:11 Blood Glucose Check, Bedside [RC] ONETIME 01/01/18 01:45 UA W/MICROSCOPIC [URIN] Stat
[2018-01-01 02:53] LABS: CHLORIDE,CL 104 mmol/L (98-107); SODIUM,NA 138 mmol/L (136-145)
== END 2018-01-01 03:37 | disposition home or self-care (01) ==
LOC: MW.ED 00:08
DX: O21.9 Vomiting of pregnancy, unspecified (principal); O99.89 Other specified diseases and conditions complicating pregnancy, childbirth and the puerperium; R10.11 Right upper quadrant pain; Z3A.10 10 weeks gestation of pregnancy; Z88.8 Allergy status to other drugs, medicaments and biological substances; Z88.2 Allergy status to sulfonamides; Z91.040 Latex allergy status
CPT/HCPCS: 36415; 80053; 81001; 82009; 82150; 82962; 83690; 84702; 85025; 96361; 96374; 96375; 99284; J1200; J2765; J7040

== ENCOUNTER 2018-01-08 13:53 | Emergency (ER) | payer MEDICAID, OTHER ==
[2018-01-08] MEDS ORDERED: diphenhydrAMINE 50 MG/ML SDV IVPUSH ONE (13:56)
[2018-01-08] MEDS ORDERED: Sodium Chloride 0.9% 1,000 ML IV ONE (13:56)
[2018-01-08] MEDS ORDERED: Sodium Chloride 0.9% 2.5 ML Syringe FLUSH PRN (13:56)
[2018-01-08] MEDS ORDERED: Metoclopramide 10 MG/2 ML SDV IV ONE (13:56)
[2018-01-08] MEDS ORDERED: Sodium Chloride 0.9% 10 ML Syringe FLUSH PRN (13:56)
--- NOTE | 2018-01-08 14:02 | EDM.PDOC ---
<Ada Moreno - Last Filed: 01/08/18 15:52> ED HPI GENERAL MEDICAL PROBLEM - General Chief Complaint: General Stated Complaint: AMBU Time Seen by Provider: 01/08/18 13:57 Source of Information: Reports: Patient History Limitations: Reports: No Limitations - History of Present Illness INITIAL COMMENTS - FREE TEXT/NARRATIVE: HISTORY AND PHYSICAL: []22-year-old female presenting with nausea and vomiting per EMS History of Present Illness: []Patient called EMS with nausea vomiting some vertigo Patient was seen at the [facility] today she is 3 months her OB doctor is Dr Jarvis Patient has her 3 year old son with. Review of Systems: As per history of present illness and below otherwise all systems reviewed and negative. Past medical history: As per history of present illness and as reviewed below otherwise noncontributory. Surgical history: As per history of present illness and as reviewed below otherwise noncontributory. Social history: No reported history of drug or alcohol abuse. Family history: As per history of present illness and as reviewed below otherwise noncontributory. Physical exam: Alert and oriented female looking well. Seen questions in full sentences without any shortness of breath. nontoxic in appearance. HEENT: Atraumatic, normocehpalic, pupils reactive, negative for conjunctival pallor or scleral icterus, mucous membranes moist, throat clear, neck supple, nontender, trachea midline. Lungs: Clear to auscultation, breath sounds equal bilaterally, chest non tender. Heart: S1S2, regular, negative for clicks, rubs, or JVD. Abdomen: Soft, nondistended, nontender. Negative for masses or hepatossplenmegaly. Negative for costovertebral tenderness. Pelvis: Stable nontender. Genitourinary: Deferred. Rectal: Deferred Extremities: Atraumatic, negative for cords or calf pain. Neurovascular unremarkable. Neuro: Awake, alert, oriented. Cranial nerves II through XII unremarkable. Cerebellum unremarkable. Motor and sensory unremarkable throughout. Exam nonfocal. Diagnostics: []cbc cmp ua Therapeutics: []IV fluids Reglan Benadryl Impression: []Treatment and symptoms of the vomiting Plan: [] charge She is to call the clinic tomorrow morning and get into see her [employer] doctor will see you Definitive disposition and diagnosis as appropriate pending reevaluation and review of above. Onset: Today, Sudden Duration: Week(s): Location: Reports: Abdomen Quality: Reports: Ache Severity: Mild Improves with: Reports: None Worsens with: Reports: None Associated Symptoms: Reports: Nausea/Vomiting Abdomen Pain Score (Numeric/FACES): 3 - Related Data Allergies Allergy/AdvReac Type Severity Reaction Status Date / Time Sulfa (Sulfonamide Allergy Intermediate Anaphylactic Verified 01/08/18 14:03 Antibiotics) Shock cefaclor [From Ceclor] Allergy Anaphylactic Verified 01/08/18 14:03 Shock latex Allergy Itching Verified 01/08/18 14:03 Home Meds: Home Meds Cholecalciferol (Vitamin D3) [Vitamin D] 1 tab PO DAILY 01/08/18 [History] Folic Acid 1 tab PO DAILY 01/08/18 [History] Insulin Aspart [Novolog Flexpen] 0 units SQ TID 01/08/18 [History] Insulin Detemir [Levemir Flextouch] 8 unit SQ DAILY 01/08/18 [History] Vit #108/Iron/FA [ One Tablet] 1 tab PO DAILY 01/08/18 [History ] Past Medical History HEENT History: Reports: Impaired Vision Cardiovascular History: Reports: None Respiratory History: Reports: Asthma Gastrointestinal History: Reports: None Genitourinary History: Reports: None [employer] History: Reports: Musculoskeletal History: Reports: SLE Neurological History: Reports: None Psychiatric History: Reports: None Endocrine/Metabolic History: Reports: Diabetes, Type I Other Endocrine/Metabolic History: no insulin Hematologic History: Reports: None Immunologic History: Reports: SLE Oncologic (Cancer) History: Reports: None Dermatologic History: Reports: None - Infectious Disease History Infectious Disease History: Reports: None - Past Surgical History HEENT Surgical History: Reports: Tonsillectomy GI Surgical History: Reports: None Female Surgical History: Reports: Section, D&C Musculoskeletal Surgical History: Reports: Shoulder Surgery Social & Family History - Family History Family Medical History: Noncontributory - Caffeine Use Caffeine Use: Reports: None ED ROS GENERAL - Review of Systems Review Of Systems: ROS reveals no pertinent complaints other than HPI. ED EXAM, GENERAL - Physical Exam Exam: See Below (See dictation) Course - Vital Signs Last Recorded V/S: Last Vital Signs Temp 36.9 C 01/08/18 14:13 Pulse 81 01/08/18 16:00 Resp 14 01/08/18 16:00 BP 93/53 L 01/08/18 16:00 Pulse Ox 100 01/08/18 16:00 Orthostatic Blood Pressure [ 101/56 Standing] Orthostatic Blood Pressure [ 102/59 Sitting] Orthostatic Blood Pressure [ 102/52 Supine] - Orders/Labs/Meds Orders: Active Orders 24 hr Category Date Time Status UA W/MICROSCOPIC [URIN] Stat Lab 01/08/18 14:09 Ordered Saline Lock Insert [OM.PC] Stat Oth 01/08/18 13:55 Ordered Labs: Laboratory Tests 01/08/18 01/08/18 01/08/18 Range/Units 13:59 13:59 14:09 WBC 6.63 (4.0-11.0) K/uL RBC 4.11 L (4.30-5.90) M/uL Hgb 12.7 (12.0-16.0) g/dL Hct 37.2 (36.0-46.0) % MCV 90.5 (80.0-98.0) fL MCH 30.9 (27.0-32.0) pg MCHC 34.1 (31.0-37.0) g/dL RDW Std Deviation 41.7 (28.0-62.0) fl RDW Coeff of Shaun 13 (11.0-15.0) % Plt Count 150 (150-400) K/uL MPV 10.50 (7.40-12.00) fL Neut % (Auto) 72.7 (48.0-80.0) % Lymph % (Auto) 13.7 L (16.0-40.0) % [place] % (Auto) 11.6 (0.0-15.0) % Eos % (Auto) 1.8 (0.0-7.0) % Baso % (Auto) 0.2 (0.0-1.5) % Neut # (Auto) 4.8 (1.4-5.7) K/uL Lymph # (Auto) 0.9 (0.6-2.4) K/uL [place] # (Auto) 0.8 (0.0-0.8) K/uL Eos # (Auto) 0.1 (0.0-0.7) K/uL Baso # (Auto) 0.0 (0.0-0.1) K/uL Nucleated RBC % 0.0 /100WBC Nucleated RBCs # 0 K/uL Sodium 136 (136-145) mmol/L Potassium 4.3 (3.5-5.1) mmol/L Chloride 105 (98-107) mmol/L Carbon Dioxide 23.7 (21.0-32.0) mmol/L BUN 8 (7.0-18.0) mg/dL Creatinine 0.7 (0.6-1.0) mg/dL Est Cr Clr Drug Dosing 109.78 mL/min Estimated GFR (MDRD) > 60.0 ml/min Glucose 141 H (74-106) mg/dL Calcium 8.6 (8.5-10.1) mg/dL Total Bilirubin 0.3 (0.2-1.0) mg/dL AST 20 (15-37) IU/L ALT 14 (14-63) IU/L Alkaline Phosphatase 54 (46-116) U/L Total Protein 7.1 (6.4-8.2) g/dL Albumin 3.5 (3.4-5.0) g/dL Globulin 3.6 H (2.0-3.5) g/dL Albumin/Globulin Ratio 1.0 L (1.3-2.8) Urine Color YELLOW Urine Appearance CLOUDY Urine pH 6.5 (5.0-8.0) Ur Specific [place] 1.015 (1.001-1.035) Urine Protein NEGATIVE (NEGATIVE) mg/dL Urine Glucose (UA) >=1000 (NEGATIVE) mg/dL Urine Ketones NEGATIVE (NEGATIVE) mg/dL Urine Occult Blood NEGATIVE (NEGATIVE) Urine Nitrite NEGATIVE (NEGATIVE) Urine Bilirubin NEGATIVE (NEGATIVE) Urine Urobilinogen 0.2 (<2.0) EU/dL Ur Leukocyte Esterase NEGATIVE (NEGATIVE) Urine RBC 0-2 (0-2/HPF) Urine WBC 0-2 (0-5/HPF) Ur Epithelial Cells MODERATE (NONE-FEW) Amorphous Sediment HEAVY (NEGATIVE) Urine Bacteria RARE (NEGATIVE) Meds: Medications Discontinued Medications Generic Name Dose Route Start Last Admin Trade Name Freq PRN Reason Stop Dose Admin Diphenhydramine HCl 25 mg 01/08/18 13:56 01/08/18 14:32 Benadryl IVPUSH 01/08/18 13:57 25 mg ONETIME ONE Administration Sodium Chloride 1,000 mls @ 999 mls/hr 01/08/18 13:56 01/08/18 14:32 Normal Saline IV 01/08/18 14:56 999 mls/hr STAT ONE Administration Metoclopramide HCl 10 mg 01/08/18 13:56 01/08/18 14:32 Reglan IV 01/08/18 13:57 10 mg ONETIME ONE Administration Sodium Chloride 10 ml 01/08/18 13:56 01/08/18 14:32 Saline Flush FLUSH 10 ml ASDIRECTED PRN Administration Keep Vein Open Sodium Chloride 2.5 ml 01/08/18 13:56 01/08/18 14:32 Saline Flush FLUSH 2.5 ml ASDIRECTED PRN Administration Keep Vein Open Departure - Departure Time of Disposition: 15:54 Disposition: Home, Self-Care 01 Condition: Good Clinical Impression: First trimester , Nausea and vomiting - Discharge Information Instructions: Vomiting, Adult Referrals: PCP,None [Primary Care Provider] - Forms: ED Department Discharge Additional Instructions: The following information is given to patients seen in the emergency department who are being discharged to home. This information is to outline your options for follow-up care. We provide all patients seen in our emergency department with a follow-up referral. The need for follow-up, as well as the timing and circumstances, are variable depending upon the specifics of your emergency department visit. If you don't have a primary care physician on staff, we will provide you with a referral. We always advise you to contact your personal physician following an emergency department visit to inform them of the circumstance of the visit and for follow-up with them and/or the need for any referrals to a consulting specialist. The emergency department will also refer you to a specialist when appropriate. This referral assures that you have the opportunity for followup care with a specialist. All of these measure are taken in an effort to provide you with optimal care, which includes your followup. Under all circumstances we always encourage you to contact your private physician who remains a resource for coordinating your care. When calling for followup care, please make the office aware that this follow-up is from your recent emergency room visit. If for any reason you are refused follow-up, please contact the [facility] emergency department at and asked to speak to the emergency department charge nurse. Call clinic in the morning to obtain appointment time to see Dr. Noguera <Bing Lozada - Last Filed: 01/08/18 16:17> ED HPI GENERAL MEDICAL PROBLEM - History of Present Illness INITIAL COMMENTS - FREE TEXT/NARRATIVE: Please note that the nurse practitioner did discuss this case with the patient' s provider Dr. 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 The provider is aware that this patient has been in the ED more than one time for similar symptoms and presented to [facility] instead of contacting her. The patient was strictly advised that she is to call the clinic tomorrow and to follow-up to get on a regimen for the vomiting.
[2018-01-08 14:30] LABS: CHLORIDE,CL 105 mmol/L (98-107); SODIUM,NA 136 mmol/L (136-145)
[2018-01-08 16:05] VITALS: BP 93/53
== END 2018-01-08 16:04 | disposition home or self-care (01) ==
LOC: MW.ED 13:53
DX: O21.9 Vomiting of pregnancy, unspecified (principal); O99.511 Diseases of the respiratory system complicating pregnancy, first trimester; J45.909 Unspecified asthma, uncomplicated; O24.011 Pre-existing type 1 diabetes mellitus, in pregnancy, first trimester; Z88.2 Allergy status to sulfonamides; Z91.040 Latex allergy status; Z79.4 Long term (current) use of insulin
CPT/HCPCS: 36415; 80053; 81001; 85025; 96361; 96374; 96375; 99284; J1200; J2765; J7040

== ENCOUNTER 2018-03-22 06:50 | Day surgery (SDC) | payer MEDICAID ==
[~2018-03-22 06:50] MED LIST: Bupivacaine 0.5% 30 ML SDV ONE; Lactated Ringers 1,000 ML IV SCH; Meropenem 1 GM in Sodium Chloride 0.9% 100 ML IV ONE; Sodium Chloride 0.9% 10 ML Syringe FLUSH PRN; Sodium Chloride 0.9% 2.5 ML Syringe FLUSH PRN
--- NOTE | 2018-03-22 07:16 | PCM.PREANE ---
Preanesthetic Assessment - Anesthesia/Transfusion/Family Hx Anesthesia History: Prior Anesthesia Without Reaction Family History of Anesthesia Reaction: No Transfusion History: No Prior Transfusion(s) Intubation History: Unknown - Review of Systems General: No Symptoms Pulmonary: No Symptoms Cardiovascular: No Symptoms Gastrointestinal: Other (pain from hemorrhoids) Neurological: No Symptoms Other: Reports: None - Physical Assessment O2 Sat by Pulse Oximetry: 100 Respiratory Rate: 16 Vital Signs: Last Vital Signs Temp Pulse 78 03/22/18 07:07 Resp 16 03/22/18 07:07 BP 111/56 L 03/22/18 07:07 Pulse Ox 100 03/22/18 07:07 Height: 1.63 m Weight: 56.699 kg ASA Class: 2 Mental Status: Alert & Oriented x3 Airway Class: Mallampati = 2 Dentition: Reports: Normal Dentition Thyro-Mental Finger Breadths: 3 Mouth Opening Finger Breadths: 3 ROM/Head Extension: Full Lungs: Clear to Auscultation, Normal Respiratory Effort Cardiovascular: Regular Rate, Regular Rhythm - Allergies Allergies/Adverse Reactions: Allergies Allergy/AdvReac Type Severity Reaction Status Date / Time Sulfa (Sulfonamide Allergy Intermediate Anaphylactic Verified 03/20/18 11:02 Antibiotics) Shock adhesive tape Allergy Rash Verified 03/20/18 11:16 cefaclor [From Ceclor] Allergy Anaphylactic Verified 03/20/18 11:02 Shock latex Allergy Itching Verified 03/20/18 11:02 - Blood Blood Available: No - Anesthesia Plan Pre-Op Medication Ordered: None - Acknowledgements Anesthesia Type Planned: Spinal (saddle block) Pt an Appropriate Candidate for the Planned Anesthesia: Yes Alternatives and Risks of Anesthesia Discussed w Pt/Guardian: Yes Pt/Guardian Understands and Agrees with Anesthesia Plan: Yes PreAnesthesia Questionnaire HEENT History: Reports: Other (See Below) Other HEENT History: wears glasses Cardiovascular History: Reports: Other (See Below) Other Cardiovascular History: usually has low blood pressure Respiratory History: Reports: Asthma Other Respiratory History: exercise induced - rarely uses inhaler Gastrointestinal History: Reports: GERD, Hemorrhoids Other Gastrointestinal History: heartburn during Genitourinary History: Reports: None 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: (20 weeks ) Other OB/BYN History: Musculoskeletal History: Reports: SLE Neurological History: Reports: Migraines Psychiatric History: Reports: Anxiety, Depression, PTSD Endocrine/Metabolic History: Reports: Diabetes, Gestational, Diabetes, Type I Other Endocrine/Metabolic History: only takes insulin when - otherwise is controlled by diet and exercise Hematologic History: Reports: None Immunologic History: Reports: SLE Oncologic (Cancer) History: Reports: None Dermatologic History: Reports: Other (See Below) Other Dermatologic History: very dry skin - Infectious Disease History Infectious Disease History: Reports: None - Past Surgical History HEENT Surgical History: Reports: Tonsillectomy Female Surgical History: Reports: Section Musculoskeletal Surgical History: Reports: Shoulder Surgery Other Musculoskeletal Surgeries/Procedures:: shoulder reconstruction- left shoulder- no hardware - SUBSTANCE USE Smoking Status *Q: Former Smoker (quit in november) Tobacco Use Within Last Twelve Months: Cigarettes Recreational Drug Use History: No - HOME MEDS Home Medications: Home Meds Folic Acid 5 tab PO DAILY 01/08/18 [History] Insulin Aspart [Novolog Flexpen] 4 units SQ QAM 01/08/18 [History] Insulin Detemir [Levemir Flextouch] 10 unit SQ BEDTIME 01/08/18 [History] Vit #108/Iron/FA [ One Tablet] 1 tab PO DAILY 01/08/18 [History ] Aspirin [Adult Low Dose Aspirin EC] 81 mg PO DAILY 03/20/18 [History] Hydrocodone/Acetaminophen [Vicodin 5-300 mg Tablet] 1 tab PO ASDIRECTED PRN 05/27 [History] Hydrocortisone [Hydrocortisone 2.5% Crm] 1 dose TOP ASDIRECTED PRN 03/20/18 [ History] Insulin Aspart [Novolog Flexpen] 2 unit SQ ACDINNER 03/20/18 [History] Inulin/Chromium Picolinate [Fiber Gummies] 2 tab PO DAILY 03/20/18 [History] Lidocaine 5% 1 dose TOP ASDIRECTED PRN 03/20/18 [History] Vitamin B6-pyridOXINE 1 tab PO ASDIRECTED PRN 03/20/18 [History] diphenhydrAMINE [Benadryl] 25 mg PO ASDIRECTED PRN 03/20/18 [History] - CURRENT (IN HOUSE) MEDS Current Meds: Current Medications Lactated Ringer's (Ringers, Lactated) 1,000 mls @ 125 mls/hr IV ASDIRECTED AUGUSTINE Last Admin: 03/22/18 07:07 Dose: 125 mls/hr Sodium Chloride (Saline Flush) 10 ml FLUSH ASDIRECTED PRN PRN Reason: Keep Vein Open Sodium Chloride (Saline Flush) 2.5 ml FLUSH ASDIRECTED PRN PRN Reason: Keep Vein Open Discontinued Medications Bupivacaine HCl (Marcaine 0.5%) Confirm Administered Dose 30 ml .ROUTE .STK-MED ONE Stop: 03/22/18 06:49 Meropenem 1 gm/ Sodium (Chloride) 100 mls @ 200 mls/hr IV ONETIME ONE Stop: 03/21/18 11:29
[2018-03-22] MEDS ORDERED: Bupivacaine 0.5% 10 ML SDV ONE (07:34)
[2018-03-22] MEDS ORDERED: Gelatin Sponge,Absorbable 12-7 mm Sponge TOP ONE (07:38)
[2018-03-22] MEDS ORDERED: Propofol 200 MG/20 ML SDV ONE (08:06)
[2018-03-22] MEDS ORDERED: Phenylephrine/Normal Saline 100 MCG/ML 10 ML Syringe ONE (08:15)
--- NOTE | 2018-03-22 08:49 | PCM.OPNOTE ---
- General Post-Op/Procedure Note Date of Surgery/Procedure: 03/22/18 Operative Procedure(s): Single column hemorrhoidectomy Findings: Thrombosed left lateral column internal hemorhhoid Pre Op Diagnosis: Thrombosed and prolapsed internal hemorrhoid Post-Op Diagnosis: same Anesthesia Technique: Spinal Primary Surgeon: Zandra Schumacher Pathology: hemorrhoid Condition: Good
[2018-03-22] MEDS ORDERED: Meropenem 1 GM in Sodium Chloride 0.9% 100 ML IV ONE (12:00)
--- NOTE | 2018-03-22 12:04 | PCM48HPAN ---
Post Anesthesia Note - EVALUATION WITHIN 48HRS OF ANESTHETIC Vital Signs in Normal Range: Yes Patient Participated in Evaluation: Yes Respiratory Function Stable: Yes Airway Patent: Yes Cardiovascular Function Stable: Yes Hydration Status Stable: Yes Pain Control Satisfactory: Yes Nausea and Vomiting Control Satisfactory: Yes Mental Status Recovered: Yes Resp Rate: 16 - COMMENTS/OBSERVATIONS Free Text/Narrative:: no anesthesia problems, patient skipped recovery room phase of post operative care
[2018-03-22 16:26] VITALS: BP 102/56
--- NOTE | 2018-03-22 16:36 | OR ---
SURGEON: BOONE RED MD DATE OF PROCEDURE: 03/22/2018 PREOPERATIVE DIAGNOSIS: Prolapsed and thrombosed internal hemorrhoids. POSTOPERATIVE DIAGNOSIS: Prolapsed and thrombosed internal hemorrhoids. PROCEDURE PERFORMED: Hemorrhoidectomy. ANESTHESIA: Spinal. FLUIDS: See Anesthesia record. ESTIMATED BLOOD LOSS: 5 mL. FINDINGS: Prolapsed and thrombosed left lateral column hemorrhoid. COMPLICATIONS: None. INDICATIONS: The patient is a 23-year-old female who is in her second trimester . Approximately a week ago, the patient developed an acute enlargement of hemorrhoids. These were painful and she presented to her grape pruner. She thought she might have external hemorrhoids and sent to my office. On exam, however, the patient was noted to have a prolapsed and thrombosed left lateral column internal hemorrhoid. The patient has tried conservative [id number] treatment with no relief in her pain and now she has had increased rectal bleeding. The decision was made to proceed with a surgical excision of this hemorrhoidal column. I explained the procedure, expected perioperative course, and risks including bleeding, infection, or damage to surrounding structures, resulting in alteration of continence. The patient verbalized the understanding and wishes to proceed. PROCEDURE IN DETAIL: The patient was brought into the OR and placed on the OR table in a left lateral decubitus position. A time-out was completed verifying the patient's name, age, date of , allergies, and procedure to be performed. Prior to initiation of the procedure, the patient had a spinal block performed. The buttocks and anus were prepped and draped in usual standard fashion. A digital rectal exam was performed. This exam revealed my previous clinical findings of a prolapsed and thrombosed left lateral column hemorrhoid. A bivalve proctoscope was placed in the anus. The remainder of the anoderm and anal canal appeared normal. The patient had some mild enlargement of the right-sided hemorrhoids, but these were not significant enough to consider surgery. Attention was then directed at the left lateral hemorrhoidal column. This was grasped with a Pinky and elevated off the underlying tissues. Needle-tip cautery was then used to excise this column of hemorrhoids. Hemostasis was achieved with cautery after excision of the hemorrhoidal tissue. The hemorrhoidal tissue was then sent to pathology, labeled as hemorrhoid. A 2-0 chromic suture was then used to close the mucosal defect. A running locking stitch was performed in the anal canal and transitioned to a simple stitch on the anoderm. It was then sutured back upon itself and tied internally. Pressure was held for 1 to 2 minutes and I re- inspected my operative field. It appeared to be hemostatic. Dry fluffs were then placed over the anus and these were secured in place with mesh underwear. The patient tolerated the procedure well and was taken to PACU in stable condition. ELLEN SELF /[id number]
== END 2018-03-22 12:05 | disposition home or self-care (01) ==
LOC: MW.SDS 06:50
PROVIDERS: ATTEND Surgery
DX: O22.42 Hemorrhoids in pregnancy, second trimester (principal); O24.414 Gestational diabetes mellitus in pregnancy, insulin controlled; O99.512 Diseases of the respiratory system complicating pregnancy, second trimester; J45.990 Exercise induced bronchospasm; O99.342 Other mental disorders complicating pregnancy, second trimester; F41.9 Anxiety disorder, unspecified; F32.9 Major depressive disorder, single episode, unspecified; O99.612 Diseases of the digestive system complicating pregnancy, second trimester; K21.9 Gastro-esophageal reflux disease without esophagitis; Z3A.20 20 weeks gestation of pregnancy; Z87.891 Personal history of nicotine dependence; Z79.82 Long term (current) use of aspirin; Z88.1 Allergy status to other antibiotic agents; Z88.2 Allergy status to sulfonamides; Z91.040 Latex allergy status
CPT/HCPCS: 46255; J2185; J2370; J3490; J7030; J7120; J2704

== ENCOUNTER 2019-06-12 03:01 | Emergency (ER) | payer BC, MEDICAID ==
[2019-06-12] MEDS ORDERED: Sodium Chloride 0.9% 10 ML Syringe FLUSH PRN (03:12)
[2019-06-12] MEDS ORDERED: Sodium Chloride 0.9% 1,000 ML IV ONE (03:12)
[2019-06-12] MEDS ORDERED: Ondansetron 4 MG/2 ML SDV IVPUSH ONE (03:12)
[2019-06-12] MEDS ORDERED: Sodium Chloride 0.9% 2.5 ML Syringe FLUSH PRN (03:12)
--- NOTE | 2019-06-12 03:28 | EDM.PDOC ---
ED HPI GENERAL MEDICAL PROBLEM - General Chief Complaint: Abdominal Pain Stated Complaint: VOMITING, DIARRHEA Time Seen by Provider: 06/12/19 04:03 - History of Present Illness INITIAL COMMENTS - FREE TEXT/NARRATIVE: HISTORY AND PHYSICAL: History of present illness: Patient is 24-year-old female percents concern of nausea vomiting diarrhea has been or last 24 hours and patient concerned about dehydration no fever chills or other complaints. Review of systems: As per history of present illness and below otherwise all systems reviewed and negative. Past medical history: As per history of present illness and as reviewed below otherwise noncontributory. Surgical history: As per history of present illness and as reviewed below otherwise noncontributory. Social history: No reported history of drug or alcohol abuse. Family history: As per history of present illness and as reviewed below otherwise noncontributory. Physical exam: HEENT: Atraumatic, normocephalic, pupils reactive, negative for conjunctival pallor or scleral icterus, mucous membranes moist, throat clear, neck supple, nontender, trachea midline. Lungs: Clear to auscultation, breath sounds equal bilaterally, chest nontender. Heart: S1S2, regular, negative for clicks, rubs, or JVD. Abdomen: Soft, nondistended, nontender. Negative for masses or hepatosplenomegaly. Negative for costovertebral tenderness. Pelvis: Stable nontender. Genitourinary: Deferred. Rectal: Deferred. Extremities: Atraumatic, negative for cords or calf pain. Neurovascular unremarkable. Neuro: Awake, alert, oriented. Cranial nerves II through XII unremarkable. Cerebellum unremarkable. Motor and sensory unremarkable throughout. Exam nonfocal. Diagnostics: CBC CMP Therapeutics: Saline 1 L bolus Zofran 4 mg IV Impression: #1 gastroenteritis Definitive disposition and diagnosis as appropriate pending reevaluation and review of above. abdomen Pain Score (Numeric/FACES): 6 - Related Data Allergies Allergy/AdvReac Type Severity Reaction Status Date / Time Sulfa (Sulfonamide Allergy Intermediate Anaphylactic Verified 06/12/19 03:28 Antibiotics) Shock adhesive tape Allergy Rash Verified 06/12/19 03:28 cefaclor [From [facility]] Allergy Anaphylactic Verified 06/12/19 03:28 Shock latex Allergy Itching Verified 06/12/19 03:28 Home Meds: Home Meds . 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[employer] 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 History: Musculoskeletal History: Reports: Back Pain, Chronic Neurological History: Reports: Concussion, Migraines Psychiatric History: Reports: Anxiety, Depression, PTSD Endocrine/Metabolic History: Reports: Diabetes, Gestational, Diabetes, Type I Other Endocrine/Metabolic History: only takes insulin when - otherwise is controlled by diet and exercise Hematologic History: Reports: Iron Deficiency, Other (See Below) Other Hematologic History: states has had Iron transfusion-last on Jun 14 Immunologic History: Reports: None, SLE Oncologic (Cancer) History: Reports: None Dermatologic History: Reports: Other (See Below) Other Dermatologic History: very dry skin - Infectious Disease History Infectious Disease History: Reports: None - Past Surgical History Head Surgeries/Procedures: Reports: None HEENT Surgical History: Reports: Tonsillectomy GI Surgical History: Reports: Other (See Below) Other GI Surgeries/Procedures: hemorroidectomy Female Surgical History: Reports: Section Musculoskeletal Surgical History: Reports: Shoulder Surgery Other Musculoskeletal Surgeries/Procedures:: shoulder reconstruction- left shoulder- no hardware Social & Family History - Family History Family Medical History: Noncontributory - Tobacco Use Smoking Status *Q: Current Every Day Smoker Years of Tobacco use: 3 Packs/Tins Daily: 1 - Caffeine Use Caffeine Use: Reports: None - Recreational Drug Use Recreational Drug Use: No ED ROS GENERAL - Review of Systems Review Of Systems: Comprehensive ROS is negative, except as noted in HPI. ED EXAM, GENERAL - Physical Exam Exam: See Below (See dictation) Course - Vital Signs Last Recorded V/S: Last Vital Signs Temp 36.1 C 06/12/19 03:01 Pulse 91 06/12/19 03:37 Resp 18 06/12/19 03:37 BP 107/55 L 06/12/19 03:37 Pulse Ox 99 06/12/19 03:37 - Orders/Labs/Meds Orders: Active Orders 24 hr Category Date Time Status Sodium Chloride 0.9% [Normal Saline] 1,000 ml Med 06/12/19 03:12 Active IV BOLUS Sodium Chloride 0.9% [Saline Flush] Med 06/12/19 03:12 Active 10 ml FLUSH ASDIRECTED PRN Sodium Chloride 0.9% [Saline Flush] Med 06/12/19 03:12 Active 2.5 ml FLUSH ASDIRECTED PRN Saline Lock Insert [OM.PC] Stat Oth 06/12/19 03:12 Ordered Medication Orders Sodium Chloride (Normal Saline) 1,000 mls @ 999 mls/hr IV BOLUS ONE Stop: 06/12/19 04:12 Last Admin: 06/12/19 03:14 Dose: 999 mls/hr Sodium Chloride (Saline Flush) 10 ml FLUSH ASDIRECTED PRN PRN Reason: Keep Vein Open Sodium Chloride (Saline Flush) 2.5 ml FLUSH ASDIRECTED PRN PRN Reason: Keep Vein Open Labs: Laboratory Tests 06/12/19 06/12/19 Range/Units 03:08 03:08 WBC 9.53 (4.0-11.0) K/uL RBC 4.63 (4.30-5.90) M/uL Hgb 14.5 (12.0-16.0) g/dL Hct 43.2 (36.0-46.0) % MCV 93.3 (80.0-98.0) fL MCH 31.3 (27.0-32.0) pg MCHC 33.6 (31.0-37.0) g/dL RDW Std Deviation 42.1 (28.0-62.0) fl RDW Coeff of Shaun 12 (11.0-15.0) % Plt Count 177 (150-400) K/uL MPV 11.10 (7.40-12.00) fL Neut % (Auto) 87.7 H (48.0-80.0) % Lymph % (Auto) 5.0 L (16.0-40.0) % [place] % (Auto) 6.6 (0.0-15.0) % Eos % (Auto) 0.6 (0.0-7.0) % Baso % (Auto) 0.1 (0.0-1.5) % Neut # (Auto) 8.4 H (1.4-5.7) K/uL Lymph # (Auto) 0.5 L (0.6-2.4) K/uL [place] # (Auto) 0.6 (0.0-0.8) K/uL Eos # (Auto) 0.1 (0.0-0.7) K/uL Baso # (Auto) 0.0 (0.0-0.1) K/uL Nucleated RBC % 0.0 /100WBC Nucleated RBCs # 0 K/uL Sodium 140 (136-145) mmol/L Potassium 4.0 (3.5-5.1) mmol/L Chloride 103 (98-107) mmol/L Carbon Dioxide 24.0 (21.0-32.0) mmol/L BUN 18 (7.0-18.0) mg/dL Creatinine 0.9 (0.6-1.0) mg/dL Est Cr Clr Drug Dosing 83.95 mL/min Estimated GFR (MDRD) > 60.0 ml/min Glucose 225 H (74-106) mg/dL Calcium 8.7 (8.5-10.1) mg/dL Total Bilirubin 0.5 (0.2-1.0) mg/dL AST 17 (15-37) IU/L ALT 28 (14-63) IU/L Alkaline Phosphatase 160 H (46-116) U/L Total Protein 8.2 (6.4-8.2) g/dL Albumin 4.1 (3.4-5.0) g/dL Globulin 4.1 H (2.6-4.0) g/dL Albumin/Globulin Ratio 1.0 (0.9-1.6) Meds: Medications Generic Name Dose Route Start Last Admin Trade Name Freq PRN Reason Stop Dose Admin Sodium Chloride 1,000 mls @ 999 mls/hr 06/12/19 03:12 06/12/19 03:14 Normal Saline IV 06/12/19 04:12 999 mls/hr BOLUS ONE Administration Sodium Chloride 10 ml 06/12/19 03:12 Saline Flush FLUSH ASDIRECTED PRN Keep Vein Open Sodium Chloride 2.5 ml 06/12/19 03:12 Saline Flush FLUSH ASDIRECTED PRN Keep Vein Open Discontinued Medications Generic Name Dose Route Start Last Admin Trade Name Freq PRN Reason Stop Dose Admin Ondansetron HCl 4 mg 06/12/19 03:12 06/12/19 03:15 Zofran IVPUSH 06/12/19 03:13 4 mg ONETIME ONE Administration Departure - Departure Time of Disposition: :04 Disposition: Home, Self-Care 01 Condition: Good Clinical Impression: Gastroenteritis - Discharge Information Referrals: Mahesh Doherty MD [Primary Care Provider] - Forms: ED Department Discharge Additional Instructions: The following information is given to patients seen in the emergency department who are being discharged to home. This information is to outline your options for follow-up care. We provide all patients seen in our emergency department with a follow-up referral. The need for follow-up, as well as the timing and circumstances, are variable depending upon the specifics of your emergency department visit. If you don't have a primary care physician on staff, we will provide you with a referral. We always advise you to contact your personal physician following an emergency department visit to inform them of the circumstance of the visit and for follow-up with them and/or the need for any referrals to a consulting specialist. The emergency department will also refer you to a specialist when appropriate. This referral assures that you have the opportunity for followup care with a specialist. All of these measure are taken in an effort to provide you with optimal care, which includes your followup. Under all circumstances we always encourage you to contact your private physician who remains a resource for coordinating your care. When calling for followup care, please make the office aware that this follow-up is from your recent emergency room visit. If for any reason you are refused follow-up, please contact the [facility] emergency department at and asked to speak to the emergency department charge nurse. Push fluids as discussed follow-up primary medical doctor Karina as prescribed return as needed as discussed - My Orders Last 24 Hours: My Active Orders 06/12/19 03:12 Sodium Chloride 0.9% [Normal Saline] 1,000 ml IV BOLUS Sodium Chloride 0.9% [Saline Flush] 10 ml FLUSH ASDIRECTED PRN Sodium Chloride 0.9% [Saline Flush] 2.5 ml FLUSH ASDIRECTED PRN Saline Lock Insert [OM.PC] Stat - Assessment/Plan Last 24 Hours: My Active Orders 06/12/19 03:12 Sodium Chloride 0.9% [Normal Saline] 1,000 ml IV BOLUS Sodium Chloride 0.9% [Saline Flush] 10 ml FLUSH ASDIRECTED PRN Sodium Chloride 0.9% [Saline Flush] 2.5 ml FLUSH ASDIRECTED PRN Saline Lock Insert [OM.PC] Stat
[2019-06-12 03:40] LABS: BLOOD UREA NITROGEN,BUN 18 mg/dL (7.0-18.0); CHLORIDE,CL 103 mmol/L (98-107); GLUCOSE RANDOM 225 mg/dL (74-106); SODIUM,NA 140 mmol/L (136-145)
[2019-06-12 04:09] VITALS: BP 114/64; PULSE 89
== END 2019-06-12 04:10 | disposition home or self-care (01) ==
LOC: MW.ED 03:01
DX: K52.9 Noninfective gastroenteritis and colitis, unspecified (principal); F17.210 Nicotine dependence, cigarettes, uncomplicated; Z88.2 Allergy status to sulfonamides; Z91.048 Other nonmedicinal substance allergy status; Z91.040 Latex allergy status; Z88.1 Allergy status to other antibiotic agents
CPT/HCPCS: 36415; 80053; 82962; 85025; 96361; 96374; 99284; J2405; J7030

== ENCOUNTER 2019-06-21 23:36 | Emergency (ER) | payer BC, MEDICAID ==
--- NOTE | 2019-06-21 23:43 | EDM.PDOC ---
ED HPI GENERAL MEDICAL PROBLEM - General Chief Complaint: General Stated Complaint: MASTITIS Time Seen by Provider: 06/21/19 23:47 - History of Present Illness INITIAL COMMENTS - FREE TEXT/NARRATIVE: HISTORY AND PHYSICAL: History of present illness: The patient is a 24-year-old female presents with a 24-hour history of right breast pain and redness. The patient has a 1-year-old that she is still breast- feeding and says that about 24 hours ago she noticed some discomfort in her right breast at the upper quadrant and noticed some redness. She had a fever yesterday to 103.5 which responded to ibuprofen and she went to [facility] and was diagnosed with mastitis and started on dicloxacillin. She has taken the first dose of that. She presents this evening saying that she feels drained with generalized malaise body aches and still has discomfort at her right breast. She noticed that he pumped her breast earlier this evening it was more cloudy than usual. She says that her breast feels firmer than usual but she is not having any new upper respiratory symptoms shortness of breath chest pain abdominal pain. She said that she started having some vomiting this evening and she was told by the provider at [facility] if she started having vomiting she should be re-seen. She has no urinary symptoms. It is seen in the computer that the patient was in the emergency department on June 12, 9 days ago, for nausea vomiting and diarrhea for which her was also a patient. She was treated symptomatically and improved. Review of systems: As per history of present illness and below otherwise all systems reviewed and negative. Past medical history: As per history of present illness and as reviewed below otherwise noncontributory. Surgical history: As per history of present illness and as reviewed below otherwise noncontributory. Social history: No reported history of drug or alcohol abuse. Family history: As per history of present illness and as reviewed below otherwise noncontributory. Physical exam: General: Well-developed and well nourished Female who is nontoxic and vital signs are noted by me HEENT: Atraumatic, normocephalic, pupils reactive, negative for conjunctival pallor or scleral icterus, mucous membranes moist, throat clear, neck supple, nontender, trachea midline. Lungs: Clear to auscultation, breath sounds equal bilaterally, chest nontender. The left breast is without any tenderness swelling defects and the right breast has ill-defined induration and tenderness at the right upper quadrant without any definitive abscess palpated and there is diffuse tenderness in this area with some warmth, there is no nipple drainage and there is no axillary adenopathy on this right side. The area is not swollen nor is there any skin changes and there is no erythema. Heart: S1S2, regular rate and rhythm no overt murmurs Abdomen: Soft, nondistended, nontender. NABS Pelvis: Stable nontender. Genitourinary: Deferred. Rectal: Deferred. Extremities: Atraumatic, negative for cords or calf pain. Neurovascular unremarkable. Neuro: Awake, alert, oriented. Cranial nerves II through XII unremarkable. Cerebellum unremarkable. Motor and sensory unremarkable throughout. Exam nonfocal. Diagnostics: CBC CMP lactic acid UA blood cultures UCG Therapeutics: IV fluids Zofran Toradol I discussed with the patient to keep a close eye on the area as the antibiotics should show improvement in the discomfort swelling and firmness of this area over the next few days. At this point she does not have clinical signs of a discrete abscess and with normal WBC count and lactate I would not ultrasound her at this point. She is aware that this can proceed to form an abscess if the antibiotics are not working and that she does need follow-up either with [facility] or with her provider Dr. Doherty at [facility] and I will give the patient Zofran to take at home for any more nausea or vomiting so that she can tolerate fluids and her antibiotic treatment Impression: mastitis, recently started on antibiotics; vomiting and generalized malaise Definitive disposition and diagnosis as appropriate pending reevaluation and review of above. right breast Pain Score (Numeric/FACES): 8 - Related Data Allergies Allergy/AdvReac Type Severity Reaction Status Date / Time Sulfa (Sulfonamide Allergy Intermediate Anaphylactic Verified 06/21/19 23:45 Antibiotics) Shock adhesive tape Allergy Rash Verified 06/21/19 23:45 cefaclor [From [facility]] Allergy Anaphylactic Verified 06/21/19 23:45 Shock latex Allergy Itching Verified 06/21/19 23:45 Home Meds: Home Meds Dicloxacillin 1 cap PO Q6HR 06/21/19 [History] Past Medical History - Past Health History Medical/Surgical History: Denies Medical/Surgical History HEENT History: Reports: Other (See Below) Other HEENT History: wears glasses Cardiovascular History: Reports: Other (See Below) Other Cardiovascular History: usually has low blood pressure Respiratory History: Reports: Asthma Other Respiratory History: exercise induced - rarely uses inhaler Gastrointestinal History: Reports: GERD, Hemorrhoids Other Gastrointestinal History: heartburn during Genitourinary History: Reports: None ACCOUNTS OFFICER History: Reports: Other ACCOUNTS OFFICER History: Musculoskeletal History: Reports: Back Pain, Chronic Neurological History: Reports: Concussion, Migraines Psychiatric History: Reports: Anxiety, Depression, PTSD Endocrine/Metabolic History: Reports: Diabetes, Gestational, Diabetes, Type I Other Endocrine/Metabolic History: only takes insulin when - otherwise is controlled by diet and exercise Hematologic History: Reports: Iron Deficiency, Other (See Below) Other Hematologic History: states has had Iron transfusion-last on Jun 14 Immunologic History: Reports: None, SLE Oncologic (Cancer) History: Reports: None Dermatologic History: Reports: Other (See Below) Other Dermatologic History: very dry skin - Infectious Disease History Infectious Disease History: Reports: None - Past Surgical History Head Surgeries/Procedures: Reports: None HEENT Surgical History: Reports: Tonsillectomy GI Surgical History: Reports: Other (See Below) Other GI Surgeries/Procedures: hemorroidectomy Female Surgical History: Reports: Section Musculoskeletal Surgical History: Reports: Shoulder Surgery Other Musculoskeletal Surgeries/Procedures:: shoulder reconstruction- left shoulder- no hardware Social & Family History - Family History Family Medical History: Noncontributory - Caffeine Use Caffeine Use: Reports: None ED ROS GENERAL - Review of Systems Review Of Systems: Comprehensive ROS is negative, except as noted in HPI. ED EXAM, GENERAL - Physical Exam Exam: See Below (See dictation) Course - Vital Signs Last Recorded V/S: Last Vital Signs Temp 36.8 C 06/22/19 01:17 Pulse 106 H 06/22/19 01:17 Resp 16 06/22/19 01:17 BP 104/53 L 06/22/19 01:17 Pulse Ox 97 06/22/19 01:17 - Orders/Labs/Meds Orders: Active Orders 24 hr Category Date Time Status CULTURE BLOOD [BC] Stat Lab 06/21/19 23:54 Received CULTURE BLOOD [BC] Stat Lab 06/21/19 23:54 Received Sodium Chloride 0.9% [Saline Flush] Med 06/21/19 23:54 Active 10 ml FLUSH ASDIRECTED PRN Sodium Chloride 0.9% [Saline Flush] Med 06/21/19 23:54 Active 2.5 ml FLUSH ASDIRECTED PRN Blood Culture x2 Reflex Set [OM.PC] Stat Ot 06/21/19 23:54 Ordered Saline Lock Insert [OM.PC] Stat Ot 06/21/19 23:53 Ordered Medication Orders Sodium Chloride (Saline Flush) 10 ml FLUSH ASDIRECTED PRN PRN Reason: Keep Vein Open Last Admin: 06/22/19 00:02 Dose: 10 ml Sodium Chloride (Saline Flush) 2.5 ml FLUSH ASDIRECTED PRN PRN Reason: Keep Vein Open Last Admin: 06/22/19 00:02 Dose: 2.5 ml Labs: Laboratory Tests 06/22/19 06/22/19 06/22/19 Range/Units 00:11 00:11 00:11 WBC 10.75 (4.0-11.0) K/uL RBC 4.01 L (4.30-5.90) M/uL Hgb 12.5 (12.0-16.0) g/dL Hct 37.3 (36.0-46.0) % MCV 93.0 (80.0-98.0) fL MCH 31.2 (27.0-32.0) pg MCHC 33.5 (31.0-37.0) g/dL RDW Std Deviation 41.5 (28.0-62.0) fl RDW Coeff of Shaun 12 (11.0-15.0) % Plt Count 149 L (150-400) K/uL MPV 10.90 (7.40-12.00) fL Neut % (Auto) 82.3 H (48.0-80.0) % Lymph % (Auto) 7.2 L (16.0-40.0) % Starke % (Auto) 9.0 (0.0-15.0) % Eos % (Auto) 1.3 (0.0-7.0) % Baso % (Auto) 0.2 (0.0-1.5) % Neut # (Auto) 8.9 H (1.4-5.7) K/uL Lymph # (Auto) 0.8 (0.6-2.4) K/uL Starke # (Auto) 1.0 H (0.0-0.8) K/uL Eos # (Auto) 0.1 (0.0-0.7) K/uL Baso # (Auto) 0.0 (0.0-0.1) K/uL Nucleated RBC % 0.0 /100WBC Nucleated RBCs # 0 K/uL Lactate 0.9 (0.20-2.00) mmol/L Sodium 136 (136-145) mmol/L Potassium 3.4 L (3.5-5.1) mmol/L Chloride 100 (98-107) mmol/L Carbon Dioxide 24.9 (21.0-32.0) mmol/L BUN 11 (7.0-18.0) mg/dL Creatinine 0.9 (0.6-1.0) mg/dL Est Cr Clr Drug Dosing 83.95 mL/min Estimated GFR (MDRD) > 60.0 ml/min Glucose 254 H (74-106) mg/dL Calcium 7.9 L (8.5-10.1) mg/dL Total Bilirubin 0.5 (0.2-1.0) mg/dL AST 19 (15-37) IU/L ALT 44 (14-63) IU/L Alkaline Phosphatase 131 H (46-116) U/L Total Protein 7.2 (6.4-8.2) g/dL Albumin 3.5 (3.4-5.0) g/dL Globulin 3.7 (2.6-4.0) g/dL Albumin/Globulin Ratio 0.9 (0.9-1.6) Urine Color Urine Appearance Urine pH (5.0-8.0) Ur Specific [place] (1.001-1.035) Urine Protein (NEGATIVE) mg/dL Urine Glucose (UA) (NEGATIVE) mg/dL Urine Ketones (NEGATIVE) mg/dL Urine Occult Blood (NEGATIVE) Urine Nitrite (NEGATIVE) Urine Bilirubin (NEGATIVE) Urine Urobilinogen (<2.0) EU/dL Ur Leukocyte Esterase (NEGATIVE) Urine RBC (0-2/HPF) Urine WBC (0-5/HPF) Ur Epithelial Cells (NONE-FEW) Urine Bacteria (NEGATIVE) Urine HCG, Qual (NEGATIVE) 06/22/19 06/22/19 Range/Units 01:10 01:10 WBC (4.0-11.0) K/uL RBC (4.30-5.90) M/uL Hgb (12.0-16.0) g/dL Hct (36.0-46.0) % MCV (80.0-98.0) fL MCH (27.0-32.0) pg MCHC (31.0-37.0) g/dL RDW Std Deviation (28.0-62.0) fl RDW Coeff of Shaun (11.0-15.0) % Plt Count (150-400) K/uL MPV (7.40-12.00) fL Neut % (Auto) (48.0-80.0) % Lymph % (Auto) (16.0-40.0) % Starke % (Auto) (0.0-15.0) % Eos % (Auto) (0.0-7.0) % Baso % (Auto) (0.0-1.5) % Neut # (Auto) (1.4-5.7) K/uL Lymph # (Auto) (0.6-2.4) K/uL Starke # (Auto) (0.0-0.8) K/uL Eos # (Auto) (0.0-0.7) K/uL Baso # (Auto) (0.0-0.1) K/uL Nucleated RBC % /100WBC Nucleated RBCs # K/uL Lactate (0.20-2.00) mmol/L Sodium (136-145) mmol/L Potassium (3.5-5.1) mmol/L Chloride (98-107) mmol/L Carbon Dioxide (21.0-32.0) mmol/L BUN (7.0-18.0) mg/dL Creatinine (0.6-1.0) mg/dL Est Cr Clr Drug Dosing mL/min Estimated GFR (MDRD) ml/min Glucose (74-106) mg/dL Calcium (8.5-10.1) mg/dL Total Bilirubin (0.2-1.0) mg/dL AST (15-37) IU/L ALT (14-63) IU/L Alkaline Phosphatase (46-116) U/L Total Protein (6.4-8.2) g/dL Albumin (3.4-5.0) g/dL Globulin (2.6-4.0) g/dL Albumin/Globulin Ratio (0.9-1.6) Urine Color YELLOW Urine Appearance SLT CLOUDY Urine pH 6.0 (5.0-8.0) Ur Specific [place] 1.025 (1.001-1.035) Urine Protein 30 H (NEGATIVE) mg/dL Urine Glucose (UA) 250 H (NEGATIVE) mg/dL Urine Ketones NEGATIVE (NEGATIVE) mg/dL Urine Occult Blood NEGATIVE (NEGATIVE) Urine Nitrite NEGATIVE (NEGATIVE) Urine Bilirubin NEGATIVE (NEGATIVE) Urine Urobilinogen 0.2 (<2.0) EU/dL Ur Leukocyte Esterase NEGATIVE (NEGATIVE) Urine RBC 0-1 (0-2/HPF) Urine WBC 0-1 (0-5/HPF) Ur Epithelial Cells OCCASIONAL (NONE-FEW) Urine Bacteria RARE (NEGATIVE) Urine HCG, Qual NEGATIVE (NEGATIVE) Meds: Medications Generic Name Dose Route Start Last Admin Trade Name Jesse PRN Reason Stop Dose Admin Sodium Chloride 10 ml 06/21/19 23:54 06/22/19 00:02 Saline Flush FLUSH 10 ml ASDIRECTED PRN Administration Keep Vein Open Sodium Chloride 2.5 ml 06/21/19 23:54 06/22/19 00:02 Saline Flush FLUSH 2.5 ml ASDIRECTED PRN Administration Keep Vein Open Discontinued Medications Generic Name Dose Route Start Last Admin Trade Name Jesse PRN Reason Stop Dose Admin Sodium Chloride 1,000 mls @ 999 mls/hr 06/21/19 23:54 06/22/19 00:01 Normal Saline IV 06/22/19 00:54 999 mls/hr STAT ONE Administration Ketorolac Tromethamine 30 mg 06/21/19 23:54 06/22/19 00:01 Toradol IVPUSH 06/21/19 23:55 30 mg ONETIME ONE Administration Ondansetron HCl 4 mg 06/21/19 23:54 06/22/19 00:01 Zofran IVPUSH 06/21/19 23:55 4 mg ONETIME ONE Administration Departure - Departure Time of Disposition: 01:28 Disposition: Home, Self-Care 01 Condition: Good Clinical Impression: Mastitis Vomiting Qualifiers: Vomiting type: unspecified Vomiting Intractability: non-intractable Nausea presence: with nausea Qualified Code(s): R11.2 - Nausea with vomiting, unspecified - Discharge Information Instructions: Mastitis, [id number], Vomiting, Adult Referrals: Mahesh Doherty MD [Primary Care Provider] - Forms: ED Department Discharge Additional Instructions: The following information is given to patients seen in the emergency department who are being discharged to home. This information is to outline your options for follow-up care. We provide all patients seen in our emergency department with a follow-up referral. The need for follow-up, as well as the timing and circumstances, are variable depending upon the specifics of your emergency department visit. If you don't have a primary care physician on staff, we will provide you with a referral. We always advise you to contact your personal physician following an emergency department visit to inform them of the circumstance of the visit and for follow-up with them and/or the need for any referrals to a consulting specialist. The emergency department will also refer you to a specialist when appropriate. This referral assures that you have the opportunity for followup care with a specialist. All of these measure are taken in an effort to provide you with optimal care, which includes your followup. Under all circumstances we always encourage you to contact your private physician who remains a resource for coordinating your care. When calling for followup care, please make the office aware that this follow-up is from your recent emergency room visit. If for any reason you are refused follow-up, please contact the [facility] emergency department at and ask to speak to the emergency department charge nurse. [address] [place], [place] [id number] [facility] [address] [place] [address] Please continue and finish the antibiotics were prescribed earlier today. Continue to monitor your symptoms and follow-up with your provider at [facility] or with your veneer sorter at [facility] for reevaluation and further management. Continue to pump and discard breast milk on that right breast. Do not breast-feed your 1-year-old on the right side but the child can take the breast milk that you pump return to ER as needed and as discussed and use [id number] meds such as ibuprofen or Tylenol for pain management. Use the Zofran you have been given from [facility] for nausea and vomiting. Sepsis Event Note - Focused Exam Vital Signs: Vital Signs Temp Pulse Resp BP Pulse Ox 06/22/19 01:17 36.8 C 106 H 16 104/53 L 97 06/21/19 23:46 37.2 C 120 H 18 108/61 98 Date Exam was Performed: 06/22/19 Time Exam was Performed: 01:28 - My Orders Last 24 Hours: My Active Orders 06/21/19 23:53 Saline Lock Insert [OM.PC] Stat 06/21/19 23:54 CULTURE BLOOD [BC] Stat CULTURE BLOOD [BC] Stat Sodium Chloride 0.9% [Saline Flush] 10 ml FLUSH ASDIRECTED PRN Sodium Chloride 0.9% [Saline Flush] 2.5 ml FLUSH ASDIRECTED PRN Blood Culture x2 Reflex Set [OM.PC] Stat - Assessment/Plan Last 24 Hours: My Active Orders 06/21/19 23:53 Saline Lock Insert [OM.PC] Stat 06/21/19 23:54 CULTURE BLOOD [BC] Stat CULTURE BLOOD [BC] Stat Sodium Chloride 0.9% [Saline Flush] 10 ml FLUSH ASDIRECTED PRN Sodium Chloride 0.9% [Saline Flush] 2.5 ml FLUSH ASDIRECTED PRN Blood Culture x2 Reflex Set [OM.PC] Stat
[2019-06-21] MEDS ORDERED: Ketorolac 30 MG/ML SDV IVPUSH ONE (23:54)
[2019-06-21] MEDS ORDERED: Ondansetron 4 MG/2 ML SDV IVPUSH ONE (23:54)
[2019-06-21] MEDS ORDERED: Sodium Chloride 0.9% 1,000 ML IV ONE (23:54)
[2019-06-21] MEDS ORDERED: Sodium Chloride 0.9% 10 ML Syringe FLUSH PRN (23:54)
[2019-06-21] MEDS ORDERED: Sodium Chloride 0.9% 2.5 ML Syringe FLUSH PRN (23:54)
[2019-06-22 00:49] LABS: BLOOD UREA NITROGEN,BUN 11 mg/dL (7.0-18.0); CARBON DIOXIDE,CO2 24.9 mmol/L (21.0-32.0); CHLORIDE,CL 100 mmol/L (98-107); GLUCOSE RANDOM 254 mg/dL (74-106); POTASSIUM,K 3.4 mmol/L (3.5-5.1); SODIUM,NA 136 mmol/L (136-145)
[2019-06-22 01:37] VITALS: BP 107/57; PULSE 100
== END 2019-06-22 01:35 | disposition home or self-care (01) ==
LOC: MW.ED 23:36
DX: N61.0 Mastitis without abscess (principal); R11.2 Nausea with vomiting, unspecified; R53.81 Other malaise; Z79.2 Long term (current) use of antibiotics; Z88.2 Allergy status to sulfonamides; Z88.1 Allergy status to other antibiotic agents; Z91.040 Latex allergy status; Z91.048 Other nonmedicinal substance allergy status
CPT/HCPCS: 36415; 80053; 81001; 81025; 83605; 85025; 87040; 96361; 96374; 96375; 99283; J1885; J2405; J7030

== ENCOUNTER 2019-10-30 22:28 | Emergency (ER) | payer BC, MEDICAID ==
[2019-10-30 22:52] VITALS: BP 123/72; PULSE 93
--- NOTE | 2019-10-30 23:42 | CR ---
INDICATION: Pain COMPARISON: None available. FINDINGS: The left shoulder was examined with AP internal and external rotation views for a total of two views. The osseous structures are in anatomic alignment without fracture or dislocation. There is anatomic alignment of the humeral head and glenoid. The visualized chest is clear. IMPRESSION: Normal left shoulder. Dictated by Eleno Bo MD @ Oct 30 2019 11:40PM Signed by Dr. Eleno Bo @ Oct 30 2019 11:41PM
[2019-10-31] MEDS ORDERED: traMADol 50 MG Tab PO ONE (01:07)
--- NOTE | 2019-10-31 01:13 | EDM.PDOC ---
ED HPI GENERAL MEDICAL PROBLEM - General Chief Complaint: Upper Extremity Injury/Pain Stated Complaint: LEFT SHOULDER INJURY Time Seen by Provider: 10/30/19 22:48 - History of Present Illness INITIAL COMMENTS - FREE TEXT/NARRATIVE: [age]-year-old female presents with left shoulder pain. The patient has a history of significant shoulder damage from a basketball injury when she was around 11 years old. She had significant reconstructive surgery early on, and then had a dislocation with subsequent repair about 8 years ago. Tonight she was picking up her 40 pound child with outstretched arms and had recurrence of the symptoms she had 8 years ago which is a shoulder which falls forward out of position but then she can easily relocated manually. Her pain is up to 7/10 in severity when it is forward and she is moving it. But when she holds it into normal position she can have excellent range of motion. Patient reports that her attempted to relocate this with what sounded like countertraction with a sheet as well as a baseball throwers or overhead reduction technique. She said that this easily reduced her shoulder but would come right back out again similar to her previous condition 8 years ago her shoulder stayed out until surgery was done weeks later. She also had some paresthesia in her fingers when the shoulder was in the forward position. Clines any other issues or illnesses. No fever, chills, nausea, chest pain, gross weakness, incoordination or rajendra numbness. She is taken no special medication for this illness. Left Shoulder Pain Score (Numeric/FACES): 4 - Related Data Allergies Allergy/AdvReac Type Severity Reaction Status Date / Time Sulfa (Sulfonamide Allergy Intermediate Anaphylactic Verified 10/30/19 22:48 Antibiotics) Shock adhesive tape Allergy Rash Verified 10/30/19 22:48 cefaclor [From Ceclor] Allergy Anaphylactic Verified 10/30/19 22:48 Shock latex Allergy Itching Verified 10/30/19 22:48 Home Meds: Home Meds Diclofenac Sodium [Voltaren] 50 mg PO BID #14 tab.ec 10/31/19 [Rx] Past Medical History - Past Health History Medical/Surgical History: Denies Medical/Surgical History HEENT History: Reports: Other (See Below) Other HEENT History: wears glasses Cardiovascular History: Reports: Other (See Below) Other Cardiovascular History: usually has low blood pressure Respiratory History: Reports: Asthma Other Respiratory History: exercise induced - rarely uses inhaler Gastrointestinal History: Reports: GERD, Hemorrhoids Other Gastrointestinal History: heartburn during Genitourinary History: Reports: None MANAGER STERILE History: Reports: Other MANAGER STERILE History: Musculoskeletal History: Reports: Back Pain, Chronic Neurological History: Reports: Concussion, Migraines Psychiatric History: Reports: Anxiety, Depression, PTSD Endocrine/Metabolic History: Reports: Diabetes, Gestational, Diabetes, Type I Other Endocrine/Metabolic History: only takes insulin when - otherwise is controlled by diet and exercise Insulin Pump Model and Manager Internet: None Hematologic History: Reports: Iron Deficiency, Other (See Below) Other Hematologic History: states has had Iron transfusion-last on Jun 14 Immunologic History: Reports: None, SLE Oncologic (Cancer) History: Reports: None Dermatologic History: Reports: Other (See Below) Other Dermatologic History: very dry skin - Infectious Disease History Infectious Disease History: Reports: None - Past Surgical History Head Surgeries/Procedures: Reports: None HEENT Surgical History: Reports: Tonsillectomy GI Surgical History: Reports: Other (See Below) Other GI Surgeries/Procedures: hemorroidectomy Female Surgical History: Reports: Section Musculoskeletal Surgical History: Reports: Shoulder Surgery Other Musculoskeletal Surgeries/Procedures:: shoulder reconstruction- left shoulder- no hardware Social & Family History - Family History Family Medical History: Noncontributory - Tobacco Use Smoking Status *Q: Current Every Day Smoker Years of Tobacco use: 1 Packs/Tins Daily: 0.5 - Caffeine Use Caffeine Use: Reports: None - Recreational Drug Use Recreational Drug Use: No Review of Systems - Review of Systems Review Of Systems: Comprehensive ROS is negative, except as noted in HPI. ED EXAM, GENERAL - Physical Exam Exam: See Below Free Text/Narrative:: General: No acute distress. Comfortable. Extremities: Shoulder: Shoulder appears to be subluxed minimally forward. She can manually push the head of the humerus backward into position and then she has excellent range of motion with her left arm in all directions. She has an excellent distal pulse and excellent power in the bicep and tricep in the wrist and fingers. Course - Vital Signs Text/Narrative:: This was atypical for me because I have never sent the patient home before with an unstable shoulder. However the patient is adamant this is the way her shoulder was previously. Patient coached me on how to properly tap her shoulder similar to the last time she had the exact same symptoms before her last reconstructive surgery about 8 years ago. This taping involved 5 long pieces of plastic tape to help support her shoulder and keep it superior and posterior. And, she reports this is exactly like her previous presentation where she had to wait weeks for surgery and she used tape and Imer bandages to keep her shoulder located properly. We also then wrapped her shoulder and bicep with 2 Imer wraps in a particular fashion as outlined by her previous orthopedist. She reports the shoulder feels good and is in good position. She had excellent range of motion and excellent pulses after the taping. She will follow-up with orthopedics for available appointment. Abdominal pain, the patient declines to have any further work-up for this tonight. We talked about the possibilities but she says she will simply watch and wait. Nayana the possibility of ectopic (the patient has an IUD and it does not want this worked up) as appendicitis but the patient will watch and wait. She is aware of the risk of this approach. Last Recorded V/S: Last Vital Signs Temp 96.2 F L 10/30/19 22:49 Pulse 93 10/30/19 22:49 Resp 18 10/30/19 22:49 BP 123/72 10/30/19 22:49 Pulse Ox 97 10/30/19 22:49 - Orders/Labs/Meds Meds: Medications Discontinued Medications Generic Name Dose Route Start Last Admin Trade Name Jesse PRN Reason Stop Dose Admin Tramadol HCl 50 mg 10/31/19 01:07 10/31/19 01:21 Ultram PO 10/31/19 01:08 50 mg ONETIME ONE Administration Departure - Departure Time of Disposition: 01:05 Disposition: Home, Self-Care 01 Clinical Impression: Shoulder subluxation, left - Discharge Information Prescriptions: Diclofenac Sodium [Voltaren] 50 mg PO BID #14 tab.ec Instructions: Shoulder Dislocation, [id number] Referrals: Mahesh Doherty MD [Primary Care Provider] - Forms: ED Department Discharge Additional Instructions: Anti-inflammatory medications for pain. Close follow-up with orthopedics. Return to emergency immediately with any weakness in the left hand or increasing pain in the left hand or arm. Also return immediately with any fevers or increasing abdominal discomfort. The emergency department will also refer you to a specialist when appropriate. This referral assures that you have the opportunity for follow-up care with a specialist. All of these measure are taken in an effort to provide you with optimal care, which includes your follow-up. Under all circumstances we always encourage you to contact your private physician who remains a resource for coordinating your care. When calling for follow-up care, please make the office aware that this follow-up is from your recent emergency room visit. If for any reason you are refused follow-up, please contact the [facility] Emergency Department at and asked to speak to the emergency department charge nurse. Sepsis Event Note - Evaluation Sepsis Screening Result: No Definite Risk - Focused Exam Vital Signs: Vital Signs Temp Pulse Resp BP Pulse Ox 10/30/19 22:49 96.2 F L 93 18 123/72 97 Date Exam was Performed: 10/31/19 Time Exam was Performed: 01:26
== END 2019-10-31 01:31 | disposition home or self-care (01) ==
LOC: MW.ED 22:28
DX: M24.412 Recurrent dislocation, left shoulder (principal); J45.909 Unspecified asthma, uncomplicated; K21.9 Gastro-esophageal reflux disease without esophagitis; E11.9 Type 2 diabetes mellitus without complications; Z88.2 Allergy status to sulfonamides; Z91.09 Other allergy status, other than to drugs and biological substances; Z88.1 Allergy status to other antibiotic agents; Z91.040 Latex allergy status
CPT/HCPCS: 73030; 99283; A9270; 99284

== ENCOUNTER 2020-03-07 23:04 | Emergency (ER) | payer BC, MEDICAID ==
[2020-03-07] MEDS ORDERED: Acetaminophen/oxyCODONE 325-5 MG Tab PO ONE (23:54)
--- NOTE | 2020-03-07 23:54 | EDM.PDOC ---
ED HPI GENERAL MEDICAL PROBLEM - General Chief Complaint: Upper Extremity Injury/Pain Stated Complaint: SHOULDER PAIN Time Seen by Provider: 03/07/20 23:25 Source of Information: Reports: Patient - History of Present Illness INITIAL COMMENTS - FREE TEXT/NARRATIVE: 25-year-old female status post left shoulder later jet surgery on Monday by Dr. Davenport for chronic dislocation presents with left shoulder pain. Pain is localized to the left shoulder, rated at 8/10, constant, exacerbated with palpation and range of motion. Pain started after her 5-year-old fell on her left shoulder at 6 PM today. Then her 5-year-old opened the bathroom door and hit the patient's left shoulder at 7 PM. She then started to vomit out of pain. She ran out of her oxycodone 5 mg yesterday and ran out of her Hernandez 5 mg today. Those were prescribed from the surgery. She starts physical therapy on Monday. She has a follow-up appointment with Dr. Davenport's PA on 03/12/2020. She called the office and was asked to come in to assess for structural injury. ROS: A 10-point review of systems, other than pertinent positives and negatives as stated per HPI, is otherwise negative Past medical history: No additional pertinent history Past Surgical history: No additional pertinent history Social history: No additional pertinent history Family history: No additional pertinent history PHYSICAL EXAM General: AOx4, GCS = 15, moderate distress HEENT: dry mucous membrane Neck: supple, no meningismus, no Kernig or Brudzinski Cardiac: S1S2 RRR Respiratory: CTAB, no crackles or rales, no wheezing Abdomen: Soft, nontender, no rebound or guarding, nondistended, no pulsatile mass. Back: nontender Musculoskeletal: NVI distally in immobilizer, no deformity, left shoulder incision site C/D/I, no purulent drainage. Tender to left shoulder and left deltoid. Neuro: No focal deficits Left Shoulder Pain Score (Numeric/FACES): 8 - Related Data Allergies Allergy/AdvReac Type Severity Reaction Status Date / Time Sulfa (Sulfonamide Allergy Intermediate Anaphylactic Verified 03/07/20 23:29 Antibiotics) Shock adhesive tape Allergy Rash Verified 03/07/20 23:29 cefaclor [From Ceclor] Allergy Anaphylactic Verified 03/07/20 23:29 Shock latex Allergy Itching Verified 03/07/20 23:29 Home Meds: Home Meds Acetaminophen/HYDROcodone [Hernandez 325-5 MG] 1 tab PO Q6H #12 tablet 03/08/20 [Rx] Past Medical History - Past Health History Medical/Surgical History: Denies Medical/Surgical History HEENT History: Reports: Other (See Below) Other HEENT History: wears glasses Cardiovascular History: Reports: Other (See Below) Other Cardiovascular History: usually has low blood pressure Respiratory History: Reports: Asthma Other Respiratory History: exercise induced - rarely uses inhaler Gastrointestinal History: Reports: GERD, Hemorrhoids Other Gastrointestinal History: heartburn during Genitourinary History: Reports: None SECURITIES CONSULTANT History: Reports: Other SECURITIES CONSULTANT History: Musculoskeletal History: Reports: Back Pain, Chronic Neurological History: Reports: Concussion, Migraines Psychiatric History: Reports: Anxiety, Depression, PTSD Endocrine/Metabolic History: Reports: Diabetes, Gestational, Diabetes, Type I Other Endocrine/Metabolic History: only takes insulin when - otherwise is controlled by diet and exercise Insulin Pump Model and Container Washer Machine: None Hematologic History: Reports: Iron Deficiency, Other (See Below) Other Hematologic History: states has had Iron transfusion-last on Jun 14 Immunologic History: Reports: None, SLE Oncologic (Cancer) History: Reports: None Dermatologic History: Reports: Other (See Below) Other Dermatologic History: very dry skin - Infectious Disease History Infectious Disease History: Reports: None - Past Surgical History Head Surgeries/Procedures: Reports: None HEENT Surgical History: Reports: Tonsillectomy GI Surgical History: Reports: Other (See Below) Other GI Surgeries/Procedures: hemorroidectomy Female Surgical History: Reports: Section Musculoskeletal Surgical History: Reports: Shoulder Surgery Other Musculoskeletal Surgeries/Procedures:: shoulder reconstruction- left shoulder- no hardware Social & Family History - Family History Family Medical History: Noncontributory - Tobacco Use Smoking Status *Q: Current Some Day Smoker Years of Tobacco use: 8 Packs/Tins Daily: 0.2 - Caffeine Use Caffeine Use: Reports: None - Recreational Drug Use Recreational Drug Use: No Review of Systems - Review of Systems Review Of Systems: Comprehensive ROS is negative, except as noted in HPI. ED EXAM, GENERAL - Physical Exam Exam: See Below (see dictation) Course - Vital Signs Last Recorded V/S: Last Vital Signs Temp 97.8 F 03/07/20 23:24 Pulse 77 03/07/20 23:24 Resp 18 03/07/20 23:24 BP 125/77 03/07/20 23:24 Pulse Ox 98 03/07/20 23:24 - Orders/Labs/Meds Meds: Medications Discontinued Medications Generic Name Dose Route Start Last Admin Trade Name Freq PRN Reason Stop Dose Admin Oxycodone/Acetaminophen 1 tab 03/07/20 23:54 03/08/20 00:29 Percocet 325-5 Mg PO 03/07/20 23:55 1 tab ONETIME ONE Administration - Re-Assessments/Exams Free Text/Narrative Re-Assessment/Exam: 03/08/20 00:55 After Percocet given in the ER, the patient improved and is currently stable for discharge. I performed a repeat exam and did not appreciate new abnormal findings. Patient exhibits normal vital signs and has a normal gait on road test. I advised the patient to return to the ER for reevaluation if symptoms worsened, including fever, worsening pain, or any other worrisome symptoms. I instructed the patient to follow up with Dr. Davenport's office on 03/12/20 MEDICAL DECISION MAKING: I reviewed the patients past medical records, lab and radiographic findings. I discussed the case with the patient. My differential diagnosis included: Shoulder contusion, narcotic dependence. I refilled her Hernandez in the ER. The affected extremity demonstrated good distal perfusion, warm, pink, cap refill <2 seconds, compartments soft, pulses equal in both extremities. Patient understands to return immediately for worsening pain, swelling, fever, numbness/tingling or other concerns and to f/u with Dr. Davenport's office as appointed on 03/12/20 Departure - Departure Time of Disposition: 00:34 Disposition: Home, Self-Care 01 Condition: Good Clinical Impression: Shoulder pain, acute - Discharge Information *PRESCRIPTION DRUG MONITORING PROGRAM REVIEWED*: Not Applicable *COPY OF PRESCRIPTION DRUG MONITORING REPORT IN PATIENT ANA: Not Applicable Prescriptions: Acetaminophen/HYDROcodone [Hernandez 325-5 MG] 1 tab PO Q6H #12 tablet Instructions: Shoulder Pain, Pain Medicine Instructions, [id number] Referrals: Joe Davenport MD [Ordering Only Provider] - 03/12/20 Forms: ED Department Discharge Sepsis Event Note (ED) - Evaluation Sepsis Screening Result: No Definite Risk - Focused Exam Vital Signs: Vital Signs Temp Pulse Resp BP Pulse Ox 03/07/20 23:24 97.8 F 77 18 125/77 98
--- NOTE | 2020-03-08 00:48 | CR ---
INDICATION: Shoulder pain TECHNIQUE: Shoulder radiograph 2 views left COMPARISON: 10/28/2019 FINDINGS: Bone: No acute fractures or aggressive bone lesions are identified. Interval placement of a screw and washer noted in the left coracoid process and glenoid. Joint: The glenohumeral joint is unremarkable. The acromioclavicular joint is unremarkable. Soft tissue: Unremarkable. The visualized hemithorax is unremarkable in appearance. No radiopaque foreign bodies are seen. IMPRESSION: 1. No acute osseous injuries or abnormalities are noted. Dictated by: Henry Valles MD @ 03/08/2020 00:47:04 (Electronically Signed)
[2020-03-08 01:03] VITALS: BP 114/69; PULSE 68
== END 2020-03-08 01:03 | disposition home or self-care (01) ==
LOC: MW.ED 23:04
DX: M25.512 Pain in left shoulder (principal); J45.909 Unspecified asthma, uncomplicated; F17.210 Nicotine dependence, cigarettes, uncomplicated; Z88.2 Allergy status to sulfonamides; Z88.1 Allergy status to other antibiotic agents; Z91.040 Latex allergy status; Z91.048 Other nonmedicinal substance allergy status; W50.0XXA Accidental hit or strike by another person, initial encounter
CPT/HCPCS: 73030; 99283; A9270

== ENCOUNTER 2020-08-10 18:46 | Emergency (ER) | payer BC, MEDICAID ==
[2020-08-10] MEDS ORDERED: Sodium Chloride 0.9% 1,000 ML IV ONE ×2 (19:06→19:44)
--- NOTE | 2020-08-10 19:19 | EDM.PDOC ---
ED HPI GENERAL MEDICAL PROBLEM - General Chief Complaint: Diabetic Complaint Stated Complaint: HIGH BLOOD SUGAR Time Seen by Provider: 08/10/20 19:01 Source of Information: Reports: Patient History Limitations: Reports: No Limitations - History of Present Illness INITIAL COMMENTS - FREE TEXT/NARRATIVE: HISTORY AND PHYSICAL: History of present illness: Patient is a 25-year-old female who presents to the emergency room with complaints of high blood sugar, generalized fatigue and feeling unwell. Patient reports she has a unique form of type I diabetic but with a low-carb diet she typically does not have to take more than 5 to 8 units of regular insulin daily. Every 5 to 7 months she states her blood sugars will reach 300-500, requiring her to take 30+ units of regular insulin to have this managed. States "typically I just can't manage my blood sugars when this happens". She reports she has seen numerous Industrial Electrician several times, "no one can tell me why my body does this". Today she has taken 3 separate doses of regular insulin, 10 units each. 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 Patient denies any fever, chills, headache, change in vision, syncope or near syncope. Denies any chest pain, back pain, shortness of breath or cough. Denies any abdominal pain, nausea, vomiting, diarrhea, constipation or dysuria. Has not noted any blood in urine or stool. Patient has been eating and drinking appropriately. Denies any recent medication changes, steroid use, over the counter supplements etc... Review of systems: As per history of present illness and below otherwise all systems reviewed and negative. Past medical history: As per history of present illness and as reviewed below otherwise noncontributory. Surgical history: As per history of present illness and as reviewed below otherwise noncontributory. Social history: See social history for further information Family history: As per history of present illness and as reviewed below otherwise noncontributory. Physical exam: General: Well developed and well nourished 25 year old female. Alert and orientated x 3. Nontoxic in appearance and in no acute distress. Vital signs are stable and have been reviewed by me. Nursing notes were reviewed. HEENT: Atraumatic, normocephalic, pupils equal and reactive bilaterally, negative for conjunctival pallor or scleral icterus, mucous membranes moist, TMs normal bilaterally, throat clear, neck supple, nontender, trachea midline. No drooling or trismus noted. No meningeal signs. No hot potato voice noted. Lungs: Clear to auscultation bilaterally. No wheezes, rales, or rhonchi. Chest nontender. Normal work of breathing, no accessory muscles used. Heart: S1S2, regular rate and rhythm without overt murmur, gallops, or rubs. No JVD. No peripheral edema Abdomen: Soft, nondistended, nontender. Normoactive bowel sounds. Negative for masses or costovertebral tenderness. Pelvis: Stable nontender. Genitourinary/Rectal: Deferred. Skin: Intact, warm, dry. No lesions or rashes noted. Hematologic: No petechiae or purpra. Mucosa appropriate color and normal nail bed color and refill. Extremities: Atraumatic, moves all extremities per self without difficulty or deficits, negative for cords or calf pain. Neurovascular unremarkable. Neuro: Awake, alert, oriented. Cranial nerves II through XII unremarkable. Cerebellum unremarkable. Motor and sensory unremarkable throughout. Exam nonfocal. Psychiatric: Mood and affect are appropriate. Normal thought process. Answering questions appropriately. Notes: *This patient was seen and evaluated during the 2019 SARS-CoV-2 novel coronavirus pandemic period. Community viral transmission is ongoing at time of this encounter and the emergency department is operating under pandemic response procedures. Before any medications were given, patient's blood sugar was 367. I am going to wait until she receive a liter or fluids, recheck her sugar, since she recently took insulin. After the first liter of fluids, sugar is 226. Will give 4 units of regular insulin, BS 216. Second liter of fluids are just finishing up. VSS. I have talked with the patient about today's findings, in addition to providing specific details for plan of care. Reassessment at the time of disposition demonstrates that the patient is in no acute distress. The patient is stable for discharge, counseling was provided and we discussed in great detail signs and symptoms that would prompt them to return to the Emergency Department. Medication, follow up and supportive care measures were reviewed and discussed. Voices understanding and is agreeable to plan of care. Denies any further questions or concerns at this time. Diagnostics: CBC, CMP, Lactate w/ reflex, UA, Ketones Therapeutics: IV fluids x 2, Insulin 4 units Prescription: None Impression: Hyperglycemia Plan: 1. Continue to monitor your blood sugar more frequently. Administer insulin based on your blood sugar readings. 2. You can alternate Tylenol and ibuprofen as needed for pain and fever management. 3. We encourage you to follow up with your primary care provider and/or recommended specialist in the next few days for re-evaluation and further care/management. 4. If your symptoms should worsen, new symptoms develop or any of the signs and symptoms we discussed should arise please return to the emergency room or call 911 (if needed). Definitive disposition and diagnosis as appropriate pending reevaluation and review of above. - Related Data Allergies Allergy/AdvReac Type Severity Reaction Status Date / Time Sulfa (Sulfonamide Allergy Intermediate Anaphylactic Verified 08/12/20 10:34 Antibiotics) Shock adhesive tape Allergy Rash Verified 08/12/20 10:34 cefaclor [From Ceclor] Allergy Anaphylactic Verified 08/12/20 10:34 Shock latex Allergy Itching Verified 08/12/20 10:34 Home Meds: Home Meds Insulin Aspart (Niacinamide) [Fiasp 100 Unit/ml Flextouch] 1 - 35 unit SQ ASDIRECTED 08/10/20 [History] Past Medical History - Past Health History Medical/Surgical History: Denies Medical/Surgical History HEENT History: Reports: Other (See Below) Other HEENT History: wears glasses Cardiovascular History: Reports: Other (See Below) Other Cardiovascular History: usually has low blood pressure Respiratory History: Reports: Asthma Other Respiratory History: exercise induced - rarely uses inhaler Gastrointestinal History: Reports: GERD, Hemorrhoids Other Gastrointestinal History: heartburn during Genitourinary History: Reports: None DE ICER INSTALLER History: Reports: 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 DE ICER INSTALLER History: Musculoskeletal History: Reports: Back Pain, Chronic Neurological History: Reports: Concussion, Migraines Psychiatric History: Reports: Anxiety, Depression, PTSD Endocrine/Metabolic History: Reports: Diabetes, Gestational, Diabetes, Type I Other Endocrine/Metabolic History: only takes insulin when - otherwise is controlled by diet and exercise Insulin Pump Model and Database Marketing Analyst: None Hematologic History: Reports: Iron Deficiency, Other (See Below) Other Hematologic History: states has had Iron transfusion-last on Jun 14 Immunologic History: Reports: None, SLE Oncologic (Cancer) History: Reports: None Dermatologic History: Reports: Other (See Below) Other Dermatologic History: very dry skin - Infectious Disease History Infectious Disease History: Reports: None - Past Surgical History Head Surgeries/Procedures: Reports: None HEENT Surgical History: Reports: Tonsillectomy GI Surgical History: Reports: Other (See Below) Other GI Surgeries/Procedures: hemorroidectomy Female Surgical History: Reports: Section Musculoskeletal Surgical History: Reports: Shoulder Surgery Other Musculoskeletal Surgeries/Procedures:: shoulder reconstruction- left shoulder- no hardware Social & Family History - Family History Family Medical History: No Pertinent Family History - Tobacco Use Tobacco Use Status *Q: Never Tobacco User - Caffeine Use Caffeine Use: Reports: None - Recreational Drug Use Recreational Drug Use: No ED ROS GENERAL - Review of Systems Review Of Systems: Comprehensive ROS is negative, except as noted in HPI. ED EXAM GENERAL NO PERIP PULSE - Physical Exam Exam: See Below (See dictation) Course - Vital Signs Last Recorded V/S: Last Vital Signs Temp 98 F 08/10/20 22:32 Pulse 67 08/10/20 22:32 Resp 16 08/10/20 22:32 BP 112/73 08/10/20 22:32 Pulse Ox 95 08/10/20 22:32 - Orders/Labs/Meds Labs: Laboratory Tests 08/10/20 08/10/20 08/10/20 Range/Units 18:55 18:55 19:17 WBC 6.56 (4.0-11.0) K/uL RBC 4.60 (4.30-5.90) M/uL Hgb 14.2 (12.0-16.0) g/dL Hct 43.5 (36.0-46.0) % MCV 94.6 (80.0-98.0) fL MCH 30.9 (27.0-32.0) pg MCHC 32.6 (31.0-37.0) g/dL RDW Std Deviation 43.1 (28.0-62.0) fl RDW Coeff of Shaun 13 (11.0-15.0) % Plt Count 209 (150-400) K/uL MPV 11.40 (7.40-12.00) fL Neut % (Auto) 60.6 (48.0-80.0) % Lymph % (Auto) 26.7 (16.0-40.0) % [place] % (Auto) 9.5 (0.0-15.0) % Eos % (Auto) 2.7 (0.0-7.0) % Baso % (Auto) 0.5 (0.0-1.5) % Neut # (Auto) 4.0 (1.4-5.7) K/uL Lymph # (Auto) 1.8 (0.6-2.4) K/uL [place] # (Auto) 0.6 (0.0-0.8) K/uL Eos # (Auto) 0.2 (0.0-0.7) K/uL Baso # (Auto) 0.0 (0.0-0.1) K/uL Nucleated RBC % 1.3 /100WBC Nucleated RBCs # 0 K/uL Lactate 2.1 H* (0.20-2.00) mmol/L Sodium 136 (136-145) mmol/L Potassium 3.6 (3.5-5.1) mmol/L Chloride 102 (98-107) mmol/L Carbon Dioxide 26.3 (21.0-32.0) mmol/L BUN 11 (7.0-18.0) mg/dL Creatinine 1.0 (0.6-1.0) mg/dL Est Cr Clr Drug Dosing TNP Estimated GFR (MDRD) > 60.0 ml/min Glucose 367 H (74-106) mg/dL POC Glucose (60-110) mg/dL Calcium 8.8 (8.5-10.1) mg/dL Total Bilirubin 0.3 (0.2-1.0) mg/dL AST 12 L (15-37) IU/L ALT 21 (14-63) IU/L Alkaline Phosphatase 125 H (46-116) U/L Total Protein 7.6 (6.4-8.2) g/dL Albumin 3.8 (3.4-5.0) g/dL Globulin 3.8 (2.6-4.0) g/dL Albumin/Globulin Ratio 1.0 (0.9-1.6) Urine Color Urine Appearance Urine pH (5.0-8.0) Ur Specific [place] (1.001-1.035) Urine Protein (NEGATIVE) mg/dL Urine Glucose (UA) (NEGATIVE) mg/dL Urine Ketones (NEGATIVE) mg/dL Urine Occult Blood (NEGATIVE) Urine Nitrite (NEGATIVE) Urine Bilirubin (NEGATIVE) Urine Urobilinogen (<2.0) EU/dL Ur Leukocyte Esterase (NEGATIVE) Urine HCG, Qual (NEGATIVE) Influenza Type A RNA (NEGATIVE) Influenza Type B RNA (NEGATIVE) SARS-CoV-2 RNA (NUNU) (NEGATIVE) 08/10/20 08/10/20 08/10/20 Range/Units 20:09 20:15 20:15 WBC (4.0-11.0) K/uL RBC (4.30-5.90) M/uL Hgb (12.0-16.0) g/dL Hct (36.0-46.0) % MCV (80.0-98.0) fL MCH (27.0-32.0) pg MCHC (31.0-37.0) g/dL RDW Std Deviation (28.0-62.0) fl RDW Coeff of Shaun (11.0-15.0) % Plt Count (150-400) K/uL MPV (7.40-12.00) fL Neut % (Auto) (48.0-80.0) % Lymph % (Auto) (16.0-40.0) % [place] % (Auto) (0.0-15.0) % Eos % (Auto) (0.0-7.0) % Baso % (Auto) (0.0-1.5) % Neut # (Auto) (1.4-5.7) K/uL Lymph # (Auto) (0.6-2.4) K/uL [place] # (Auto) (0.0-0.8) K/uL Eos # (Auto) (0.0-0.7) K/uL Baso # (Auto) (0.0-0.1) K/uL Nucleated RBC % /100WBC Nucleated RBCs # K/uL Lactate (0.20-2.00) mmol/L Sodium (136-145) mmol/L Potassium (3.5-5.1) mmol/L Chloride (98-107) mmol/L Carbon Dioxide (21.0-32.0) mmol/L BUN (7.0-18.0) mg/dL Creatinine (0.6-1.0) mg/dL Est Cr Clr Drug Dosing Estimated GFR (MDRD) ml/min Glucose (74-106) mg/dL POC Glucose 226 H (60-110) mg/dL Calcium (8.5-10.1) mg/dL Total Bilirubin (0.2-1.0) mg/dL AST (15-37) IU/L ALT (14-63) IU/L Alkaline Phosphatase (46-116) U/L Total Protein (6.4-8.2) g/dL Albumin (3.4-5.0) g/dL Globulin (2.6-4.0) g/dL Albumin/Globulin Ratio (0.9-1.6) Urine Color YELLOW Urine Appearance CLEAR Urine pH 7.0 (5.0-8.0) Ur Specific [place] 1.015 (1.001-1.035) Urine Protein NEGATIVE (NEGATIVE) mg/dL Urine Glucose (UA) >=1000 (NEGATIVE) mg/dL Urine Ketones NEGATIVE (NEGATIVE) mg/dL Urine Occult Blood NEGATIVE (NEGATIVE) Urine Nitrite NEGATIVE (NEGATIVE) Urine Bilirubin NEGATIVE (NEGATIVE) Urine Urobilinogen 0.2 (<2.0) EU/dL Ur Leukocyte Esterase NEGATIVE (NEGATIVE) Urine HCG, Qual NEGATIVE (NEGATIVE) Influenza Type A RNA (NEGATIVE) Influenza Type B RNA (NEGATIVE) SARS-CoV-2 RNA (NUNU) (NEGATIVE) 08/10/20 08/10/20 08/10/20 Range/Units 20:15 20:58 21:10 WBC (4.0-11.0) K/uL RBC (4.30-5.90) M/uL Hgb (12.0-16.0) g/dL Hct (36.0-46.0) % MCV (80.0-98.0) fL MCH (27.0-32.0) pg MCHC (31.0-37.0) g/dL RDW Std Deviation (28.0-62.0) fl RDW Coeff of Shaun (11.0-15.0) % Plt Count (150-400) K/uL MPV (7.40-12.00) fL Neut % (Auto) (48.0-80.0) % Lymph % (Auto) (16.0-40.0) % [place] % (Auto) (0.0-15.0) % Eos % (Auto) (0.0-7.0) % Baso % (Auto) (0.0-1.5) % Neut # (Auto) (1.4-5.7) K/uL Lymph # (Auto) (0.6-2.4) K/uL [place] # (Auto) (0.0-0.8) K/uL Eos # (Auto) (0.0-0.7) K/uL Baso # (Auto) (0.0-0.1) K/uL Nucleated RBC % /100WBC Nucleated RBCs # K/uL Lactate (0.20-2.00) mmol/L Sodium (136-145) mmol/L Potassium (3.5-5.1) mmol/L Chloride (98-107) mmol/L Carbon Dioxide (21.0-32.0) mmol/L BUN (7.0-18.0) mg/dL Creatinine (0.6-1.0) mg/dL Est Cr Clr Drug Dosing Estimated GFR (MDRD) ml/min Glucose (74-106) mg/dL POC Glucose 216 H (60-110) mg/dL Calcium (8.5-10.1) mg/dL Total Bilirubin (0.2-1.0) mg/dL AST (15-37) IU/L ALT (14-63) IU/L Alkaline Phosphatase (46-116) U/L Total Protein (6.4-8.2) g/dL Albumin (3.4-5.0) g/dL Globulin (2.6-4.0) g/dL Albumin/Globulin Ratio (0.9-1.6) Urine Color Urine Appearance Urine pH (5.0-8.0) Ur Specific [place] (1.001-1.035) Urine Protein (NEGATIVE) mg/dL Urine Glucose (UA) (NEGATIVE) mg/dL Urine Ketones SMALL H (NEGATIVE) mg/dL Urine Occult Blood (NEGATIVE) Urine Nitrite (NEGATIVE) Urine Bilirubin (NEGATIVE) Urine Urobilinogen (<2.0) EU/dL Ur Leukocyte Esterase (NEGATIVE) Urine HCG, Qual (NEGATIVE) Influenza Type A RNA NEGATIVE (NEGATIVE) Influenza Type B RNA NEGATIVE (NEGATIVE) SARS-CoV-2 RNA (NUNU) NEGATIVE (NEGATIVE) Meds: Medications Discontinued Medications Generic Name Dose Route Start Last Admin Trade Name Freq PRN Reason Stop Dose Admin Dextrose/Water 50 ml 08/10/20 19:44 Dextrose 50% In Water IV ASDIRECTED PRN Hypoglycemia Glucagon 1 mg 08/10/20 19:44 Glucagen IM ASDIRECTED PRN Hypoglycemia Sodium Chloride 1,000 mls @ 999 mls/hr 08/10/20 19:06 08/10/20 19:17 Normal Saline IV 08/10/20 20:06 999 mls/hr STAT ONE Administration Sodium Chloride 1,000 mls @ 999 mls/hr 08/10/20 19:44 08/10/20 20:24 Normal Saline IV 08/10/20 20:44 999 mls/hr STAT ONE Administration Insulin Human Regular 10 unit 08/10/20 19:44 08/10/20 22:18 Novolin R SUBCUT 08/10/20 19:45 Not Given ONETIME ONE Protocol Insulin Human Regular 4 unit 08/10/20 21:01 08/10/20 21:11 Novolin R SUBCUT 08/10/20 21:02 4 units ONETIME ONE Administration Protocol Departure - Departure Time of Disposition: 22:30 Disposition: Home, Self-Care 01 Clinical Impression: Hyperglycemia - Discharge Information Referrals: Concepcion Martino DO [Primary Care Provider] - Forms: ED Department Discharge Additional Instructions: The following information is given to patients seen in the emergency department who are being discharged to home. This information is to outline your options for follow-up care. We provide all patients seen in our emergency department with a follow-up referral. The need for follow-up, as well as the timing and circumstances, are variable depending upon the specifics of your emergency department visit. If you don't have a primary care physician on staff, we will provide you with a referral. We always advise you to contact your personal physician following an emergency department visit to inform them of the circumstance of the visit and for follow-up with them and/or the need for any referrals to a consulting specialist. The emergency department will also refer you to a specialist when appropriate. This referral assures that you have the opportunity for follow-up care with a specialist. All of these measure are taken in an effort to provide you with optimal care, which includes your follow-up. Under all circumstances we always encourage you to contact your private physician who remains a resource for coordinating your care. When calling for follow-up care, please make the office aware that this follow-up is from your recent emergency room visit. If for any reason you are refused follow-up, please contact the [facility] Emergency Department at and asked to speak to the emergency department charge nurse. [facility] [address] [place] [address] [facility] [address] [place] [id number] Thank you for choosing the [facility] emergency department in [place] for your medical needs today. It was a pleasure caring for you. Today you were seen in the emergency department for hyperglycemia 1. Continue to monitor your blood sugar more frequently. Administer insulin based on your blood sugar readings. 2. You can alternate Tylenol and ibuprofen as needed for pain and fever management. 3. We encourage you to follow up with your primary care provider and/or recommended specialist in the next few days for re-evaluation and further care/management. 4. If your symptoms should worsen, new symptoms develop or any of the signs and symptoms we discussed should arise please return to the emergency room or call 911 (if needed). Sepsis Event Note (ED) - Evaluation Sepsis Screening Result: No Definite Risk
[2020-08-10 19:25] LABS: BLOOD UREA NITROGEN,BUN 11 mg/dL (7.0-18.0); CARBON DIOXIDE,CO2 26.3 mmol/L (21.0-32.0); CHLORIDE,CL 102 mmol/L (98-107); GLUCOSE RANDOM 367 mg/dL (74-106); POTASSIUM,K 3.6 mmol/L (3.5-5.1); SODIUM,NA 136 mmol/L (136-145)
[2020-08-10] MEDS ORDERED: Glucagon,Human Recombinant 1 MG Vial IM PRN (19:44)
[2020-08-10] MEDS ORDERED: Insulin Regular, Human 100 Units/ML 10 ML Vial SUBCUT ONE ×2 (19:44→21:01)
[2020-08-10] MEDS ORDERED: 50% Dextrose in Water 50 ML Syringe IV PRN (19:44)
[2020-08-10 22:09] LABS: CORONAVIRUS COVID-19 NAA NEGATIVE (NEGATIVE); INFLUENZA A NAA NEGATIVE (NEGATIVE); INFLUENZA B NAA NEGATIVE (NEGATIVE)
[2020-08-10 22:32] VITALS: BP 112/73; PULSE 67
== END 2020-08-10 22:33 | disposition home or self-care (01) ==
LOC: MW.ED 18:46
DX: E10.65 Type 1 diabetes mellitus with hyperglycemia (principal); J45.909 Unspecified asthma, uncomplicated; M32.9 Systemic lupus erythematosus, unspecified; Z88.2 Allergy status to sulfonamides; Z91.048 Other nonmedicinal substance allergy status; Z88.1 Allergy status to other antibiotic agents; Z91.040 Latex allergy status; Z20.822 Contact with and (suspected) exposure to COVID-19
CPT/HCPCS: 0240U; 80053; 81003; 81025; 82962; 83605; 85025; 99284; J7030; 99283; J1815-GY

== ENCOUNTER 2020-08-12 10:07 | Emergency (ER) | payer BC ==
[2020-08-12] MEDS ORDERED: Sodium Chloride 0.9% 1,000 ML IV ONE ×2 (10:49→10:57)
--- NOTE | 2020-08-12 11:22 | EDM.PDOC ---
ED HPI GENERAL MEDICAL PROBLEM - General Chief Complaint: Diabetic Complaint Stated Complaint: DIABETES COMPLICATION Time Seen by Provider: 08/12/20 10:08 Source of Information: Reports: Patient History Limitations: Reports: No Limitations - History of Present Illness INITIAL COMMENTS - FREE TEXT/NARRATIVE: HISTORY AND PHYSICAL: History of present illness: Patient is a 25-year-old female who presents to the ED today with concern of high blood sugar over the past several days. Patient states that she is not type I diabetic or type II and she has a "unknown "diabetes. Patient states that typically she does not require insulin but every couple months her sugars were elevated and then she has to give insulin. Patient states she will typically give about 10 units of regular insulin during these episodes of higher blood sugar. Patient states that the insulin has not been working and her blood sugars have been consistently 2-300. Patient states that she saw her primary care provider, Concepcion Castanon at [facility] yesterday who started a long- acting 10 units of insulin. Patient states she took the long-acting 10 units of insulin and regular insulin 10 units just before coming to the emergency room. Patient states her blood sugar was 300+ at home despite taking these. Patient states that she has seen an cane flume feeding machine operator several times and "nobody knows "why this happens. She denies any other associated symptoms. Patient denies fever, chills, chest pain, shortness of breath, or cough. Denies headache, neck stiff ness, change in vision, syncope, or near syncope. Denies nausea, vomiting, abdominal pain, diarrhea, constipation, or dysuria. Has not noted any blood in urine or stool. Patient has been eating and drinking appropriately. Review of systems: As per history of present illness and below otherwise all systems reviewed and negative. Past medical history: As per history of present illness and as reviewed below otherwise noncontributory. Surgical history: As per history of present illness and as reviewed below otherwise noncontributory. Social history: See social history for further information Family history: As per history of present illness and as reviewed below otherwise noncontributory. Physical exam: General: Patient is alert, oriented, and in no acute distress. Patient sitting comfortably on exam table. Vitals stable and reviewed by me. Anxious appearing. HEENT: Atraumatic, normocephalic, pupils equal and reactive bilaterally, negative for conjunctival pallor or scleral icterus, mucous membranes moist, TMs normal bilaterally, throat clear, neck supple, nontender, trachea midline. No drooling or trismus noted. No meningeal signs. No hot potato voice noted. Lungs: Clear to auscultation, breath sounds equal bilaterally, chest nontender. Heart: S1S2, regular rate and rhythm without overt murmur Abdomen: Soft, nondistended, nontender. Negative for masses or hepatosplenomegaly. Negative for costovertebral tenderness. Pelvis: Stable nontender. Genitourinary: Deferred. Rectal: Deferred. Skin: Intact, warm, dry. No lesions or rashes noted. Extremities: Atraumatic, negative for cords or calf pain. Neurovascular unremarkable. Neuro: Awake, alert, oriented. Cranial nerves II through XII unremarkable. Cerebellum unremarkable. Motor and sensory unremarkable throughout. Exam nonfocal. Notes: Patient is non toxic, vitally stable, and appears well on exam but is anxious about her blood sugar readings. Glucose on arrival 370. 1 L of normal saline initiated. Patient had just given herself 10 units of normal insulin before coming to the emergency room so we we will reevaluate her blood sugar after 1 L normal saline. Initial lactate is slightly elevated. Patient's repeat blood glucose at bedside was 240 after 1LNS. We will give her an additional 1 L and 2 units subQ of insulin and repeat blood sugar. Repeat blood sugar 270. Repeat lactate is normal following therapeusis. simulation educator consulted and has come in to personally see and evaluate the patient at bedside. She has taken patients glucose monitor and printed off patients readings. It appears that patient has been running 200-300 baseline according to educator. Educator also states that patient has not been giving insulin correctly and has helped educate her on her home insulin regime dosing and close follow up outpatient with educator senior clinical with further plans to improve patients blood sugars overtime according to educator senior clinical. Signs and symptoms that would prompt return to the ED thoroughly discussed with patient. Discussed the importance for follow-up with her primary care provider and the educator senior clinical. Voices understanding and is agreeable to plan of care. Denies any further questions or concerns at this time. Diagnostics: CBC, CMP, UA, Serum hcg, Blood Ketone, VBG, Lactate Therapeutics: NS x 2, SQ Insulin Prescription: None Impression: Hyperglycemia Plan: 1. Follow-up with your primary care provider/educator senior clinical as discussed. Return to the ED as needed and as discussed. Definitive disposition and diagnosis as appropriate pending reevaluation and review of above. - Related Data Allergies Allergy/AdvReac Type Severity Reaction Status Date / Time Sulfa (Sulfonamide Allergy Intermediate Anaphylactic Verified 08/12/20 10:34 Antibiotics) Shock adhesive tape Allergy Rash Verified 08/12/20 10:34 cefaclor [From Ceclor] Allergy Anaphylactic Verified 08/12/20 10:34 Shock latex Allergy Itching Verified 08/12/20 10:34 Home Meds: Home Meds Insulin Aspart (Niacinamide) [Fiasp 100 Unit/ml Flextouch] 1 - 35 unit SQ ASDIRECTED 08/10/20 [History] Past Medical History - Past Health History Medical/Surgical History: Denies Medical/Surgical History HEENT History: Reports: Other (See Below) Other HEENT History: wears glasses Cardiovascular History: Reports: Other (See Below) Other Cardiovascular History: usually has low blood pressure Respiratory History: Reports: Asthma Other Respiratory History: exercise induced - rarely uses inhaler Gastrointestinal History: Reports: GERD, Hemorrhoids Other Gastrointestinal History: heartburn during Genitourinary History: Reports: None PROPERTY UTILIZATION OFFICER History: Reports: Other PROPERTY UTILIZATION OFFICER History: Musculoskeletal History: Reports: Back Pain, Chronic Neurological History: Reports: Concussion, Migraines Psychiatric History: Reports: Anxiety, Depression, PTSD Endocrine/Metabolic History: Reports: Diabetes, Gestational, Diabetes, Type I Other Endocrine/Metabolic History: only takes insulin when - otherwise is controlled by diet and exercise Insulin Pump Model and Template Clerk: None Hematologic History: Reports: Iron Deficiency, Other (See Below) Other Hematologic History: states has had Iron transfusion-last on Jun 14 Immunologic History: Reports: None, SLE Oncologic (Cancer) History: Reports: None Dermatologic History: Reports: Other (See Below) Other Dermatologic History: very dry skin - Infectious Disease History Infectious Disease History: Reports: None - Past Surgical History Head Surgeries/Procedures: Reports: None HEENT Surgical History: Reports: Tonsillectomy GI Surgical History: Reports: Other (See Below) Other GI Surgeries/Procedures: hemorroidectomy Female Surgical History: Reports: Section Musculoskeletal Surgical History: Reports: Shoulder Surgery Other Musculoskeletal Surgeries/Procedures:: shoulder reconstruction- left sh oulder- no hardware Social & Family History - Family History Family Medical History: No Pertinent Family History - Tobacco Use Tobacco Use Status *Q: Current Every Day Tobacco User Years of Tobacco use: 5 Packs/Tins Daily: 0.1 - Caffeine Use Caffeine Use: Reports: None - Recreational Drug Use Recreational Drug Use: No ED ROS GENERAL - Review of Systems Review Of Systems: Comprehensive ROS is negative, except as noted in HPI. ED EXAM GENERAL NO PERIP PULSE - Physical Exam Exam: See Below (see dictation) Course - Vital Signs Last Recorded V/S: Last Vital Signs Temp 97.2 F 08/12/20 14:47 Pulse 76 08/12/20 14:47 Resp 16 08/12/20 14:47 BP 111/65 08/12/20 14:47 Pulse Ox 98 08/12/20 14:47 - Orders/Labs/Meds Orders: Active Orders 24 hr Category Date Time Status Consult to Bradley Linebacker Crewmember [Consult to Diabetic Nurse Cons 08/12/20 11:33 Active Specialist] [CONS] Stat Labs: Laboratory Tests 08/12/20 08/12/20 08/12/20 Range/Units 10:40 10:40 10:40 WBC 6.45 (4.0-11.0) K/uL RBC 4.38 (4.30-5.90) M/uL Hgb 13.5 (12.0-16.0) g/dL Hct 41.3 (36.0-46.0) % MCV 94.3 (80.0-98.0) fL MCH 30.8 (27.0-32.0) pg MCHC 32.7 (31.0-37.0) g/dL RDW Std Deviation 42.5 (28.0-62.0) fl RDW Coeff of Shaun 13 (11.0-15.0) % Plt Count 184 (150-400) K/uL MPV 11.50 (7.40-12.00) fL Neut % (Auto) 69.0 (48.0-80.0) % Lymph % (Auto) 22.0 (16.0-40.0) % [place] % (Auto) 6.8 (0.0-15.0) % Eos % (Auto) 2.0 (0.0-7.0) % Baso % (Auto) 0.2 (0.0-1.5) % Neut # (Auto) 4.5 (1.4-5.7) K/uL Lymph # (Auto) 1.4 (0.6-2.4) K/uL [place] # (Auto) 0.4 (0.0-0.8) K/uL Eos # (Auto) 0.1 (0.0-0.7) K/uL Baso # (Auto) 0.0 (0.0-0.1) K/uL Nucleated RBC % 0.0 /100WBC Nucleated RBCs # 0 K/uL VBG pH (7.31-7.41) VBG pCO2 (35-45) mmHG VBG pO2 (30-40) mmHG VBG HCO3 (22-30) mEq/L VBG Total CO2 (41-51) mmol/L VBG Base Excess (-3.0-3.0) Lactate (0.20-2.00) mmol/L Sodium 136 (136-145) mmol/L Potassium 3.9 (3.5-5.1) mmol/L Chloride 101 (98-107) mmol/L Carbon Dioxide 22.4 (21.0-32.0) mmol/L BUN 14 (7.0-18.0) mg/dL Creatinine 0.9 (0.6-1.0) mg/dL Est Cr Clr Drug Dosing 83.23 mL/min Estimated GFR (MDRD) > 60.0 ml/min Glucose 399 H (74-106) mg/dL POC Glucose (60-110) mg/dL Calcium 9.0 (8.5-10.1) mg/dL Total Bilirubin 0.3 (0.2-1.0) mg/dL AST 10 L (15-37) IU/L ALT 23 (14-63) IU/L Alkaline Phosphatase 112 (46-116) U/L Total Protein 7.4 (6.4-8.2) g/dL Albumin 3.6 (3.4-5.0) g/dL Globulin 3.8 (2.6-4.0) g/dL Albumin/Globulin Ratio 0.9 (0.9-1.6) Urine Color Urine Appearance Urine pH (5.0-8.0) Ur Specific [place] (1.001-1.035) Urine Protein (NEGATIVE) mg/dL Urine Glucose (UA) (NEGATIVE) mg/dL Urine Ketones (NEGATIVE) mg/dL Urine Occult Blood (NEGATIVE) Urine Nitrite (NEGATIVE) Urine Bilirubin (NEGATIVE) Urine Urobilinogen (<2.0) EU/dL Ur Leukocyte Esterase (NEGATIVE) Urine HCG, Qual (NEGATIVE) Ketones NEGATIVE (NEG) 08/12/20 08/12/20 08/12/20 Range/Units 10:40 10:40 10:41 WBC (4.0-11.0) K/uL RBC (4.30-5.90) M/uL Hgb (12.0-16.0) g/dL Hct (36.0-46.0) % MCV (80.0-98.0) fL MCH (27.0-32.0) pg MCHC (31.0-37.0) g/dL RDW Std Deviation (28.0-62.0) fl RDW Coeff of Shaun (11.0-15.0) % Plt Count (150-400) K/uL MPV (7.40-12.00) fL Neut % (Auto) (48.0-80.0) % Lymph % (Auto) (16.0-40.0) % [place] % (Auto) (0.0-15.0) % Eos % (Auto) (0.0-7.0) % Baso % (Auto) (0.0-1.5) % Neut # (Auto) (1.4-5.7) K/uL Lymph # (Auto) (0.6-2.4) K/uL [place] # (Auto) (0.0-0.8) K/uL Eos # (Auto) (0.0-0.7) K/uL Baso # (Auto) (0.0-0.1) K/uL Nucleated RBC % /100WBC Nucleated RBCs # K/uL VBG pH 7.37 (7.31-7.41) VBG pCO2 42 (35-45) mmHG VBG pO2 53 H (30-40) mmHG VBG HCO3 24 (22-30) mEq/L VBG Total CO2 22 L (41-51) mmol/L VBG Base Excess -1.4 (-3.0-3.0) Lactate 2.8 H* (0.20-2.00) mmol/L Sodium (136-145) mmol/L Potassium (3.5-5.1) mmol/L Chloride (98-107) mmol/L Carbon Dioxide (21.0-32.0) mmol/L BUN (7.0-18.0) mg/dL Creatinine (0.6-1.0) mg/dL Est Cr Clr Drug Dosing mL/min Estimated GFR (MDRD) ml/min Glucose (74-106) mg/dL POC Glucose 377 H (60-110) mg/dL Calcium (8.5-10.1) mg/dL Total Bilirubin (0.2-1.0) mg/dL AST (15-37) IU/L ALT (14-63) IU/L Alkaline Phosphatase (46-116) U/L Total Protein (6.4-8.2) g/dL Albumin (3.4-5.0) g/dL Globulin (2.6-4.0) g/dL Albumin/Globulin Ratio (0.9-1.6) Urine Color Urine Appearance Urine pH (5.0-8.0) Ur Specific [place] (1.001-1.035) Urine Protein (NEGATIVE) mg/dL Urine Glucose (UA) (NEGATIVE) mg/dL Urine Ketones (NEGATIVE) mg/dL Urine Occult Blood (NEGATIVE) Urine Nitrite (NEGATIVE) Urine Bilirubin (NEGATIVE) Urine Urobilinogen (<2.0) EU/dL Ur Leukocyte Esterase (NEGATIVE) Urine HCG, Qual (NEGATIVE) Ketones (NEG) 08/12/20 08/12/20 08/12/20 Range/Units 10:50 10:50 12:01 WBC (4.0-11.0) K/uL RBC (4.30-5.90) M/uL Hgb (12.0-16.0) g/dL Hct (36.0-46.0) % MCV (80.0-98.0) fL MCH (27.0-32.0) pg MCHC (31.0-37.0) g/dL RDW Std Deviation (28.0-62.0) fl RDW Coeff of Shaun (11.0-15.0) % Plt Count (150-400) K/uL MPV (7.40-12.00) fL Neut % (Auto) (48.0-80.0) % Lymph % (Auto) (16.0-40.0) % [place] % (Auto) (0.0-15.0) % Eos % (Auto) (0.0-7.0) % Baso % (Auto) (0.0-1.5) % Neut # (Auto) (1.4-5.7) K/uL Lymph # (Auto) (0.6-2.4) K/uL [place] # (Auto) (0.0-0.8) K/uL Eos # (Auto) (0.0-0.7) K/uL Baso # (Auto) (0.0-0.1) K/uL Nucleated RBC % /100WBC Nucleated RBCs # K/uL VBG pH (7.31-7.41) VBG pCO2 (35-45) mmHG VBG pO2 (30-40) mmHG VBG HCO3 (22-30) mEq/L VBG Total CO2 (41-51) mmol/L VBG Base Excess (-3.0-3.0) Lactate (0.20-2.00) mmol/L Sodium (136-145) mmol/L Potassium (3.5-5.1) mmol/L Chloride (98-107) mmol/L Carbon Dioxide (21.0-32.0) mmol/L BUN (7.0-18.0) mg/dL Creatinine (0.6-1.0) mg/dL Est Cr Clr Drug Dosing mL/min Estimated GFR (MDRD) ml/min Glucose (74-106) mg/dL POC Glucose 240 H (60-110) mg/dL Calcium (8.5-10.1) mg/dL Total Bilirubin (0.2-1.0) mg/dL AST (15-37) IU/L ALT (14-63) IU/L Alkaline Phosphatase (46-116) U/L Total Protein (6.4-8.2) g/dL Albumin (3.4-5.0) g/dL Globulin (2.6-4.0) g/dL Albumin/Globulin Ratio (0.9-1.6) Urine Color YELLOW Urine Appearance CLEAR Urine pH 5.5 (5.0-8.0) Ur Specific [place] 1.010 (1.001-1.035) Urine Protein NEGATIVE (NEGATIVE) mg/dL Urine Glucose (UA) >=1000 (NEGATIVE) mg/dL Urine Ketones NEGATIVE (NEGATIVE) mg/dL Urine Occult Blood NEGATIVE (NEGATIVE) Urine Nitrite NEGATIVE (NEGATIVE) Urine Bilirubin NEGATIVE (NEGATIVE) Urine Urobilinogen 0.2 (<2.0) EU/dL Ur Leukocyte Esterase NEGATIVE (NEGATIVE) Urine HCG, Qual NEGATIVE (NEGATIVE) Ketones (NEG) 08/12/20 08/12/20 08/12/20 Range/Units 12:08 13:42 14:16 WBC (4.0-11.0) K/uL RBC (4.30-5.90) M/uL Hgb (12.0-16.0) g/dL Hct (36.0-46.0) % MCV (80.0-98.0) fL MCH (27.0-32.0) pg MCHC (31.0-37.0) g/dL RDW Std Deviation (28.0-62.0) fl RDW Coeff of Shaun (11.0-15.0) % Plt Count (150-400) K/uL MPV (7.40-12.00) fL Neut % (Auto) (48.0-80.0) % Lymph % (Auto) (16.0-40.0) % [place] % (Auto) (0.0-15.0) % Eos % (Auto) (0.0-7.0) % Baso % (Auto) (0.0-1.5) % Neut # (Auto) (1.4-5.7) K/uL Lymph # (Auto) (0.6-2.4) K/uL [place] # (Auto) (0.0-0.8) K/uL Eos # (Auto) (0.0-0.7) K/uL Baso # (Auto) (0.0-0.1) K/uL Nucleated RBC % /100WBC Nucleated RBCs # K/uL VBG pH (7.31-7.41) VBG pCO2 (35-45) mmHG VBG pO2 (30-40) mmHG VBG HCO3 (22-30) mEq/L VBG Total CO2 (41-51) mmol/L VBG Base Excess (-3.0-3.0) Lactate 1.7 (0.20-2.00) mmol/L Sodium (136-145) mmol/L Potassium (3.5-5.1) mmol/L Chloride (98-107) mmol/L Carbon Dioxide (21.0-32.0) mmol/L BUN (7.0-18.0) mg/dL Creatinine (0.6-1.0) mg/dL Est Cr Clr Drug Dosing mL/min Estimated GFR (MDRD) ml/min Glucose (74-106) mg/dL POC Glucose 265 H 276 H (60-110) mg/dL Calcium (8.5-10.1) mg/dL Total Bilirubin (0.2-1.0) mg/dL AST (15-37) IU/L ALT (14-63) IU/L Alkaline Phosphatase (46-116) U/L Total Protein (6.4-8.2) g/dL Albumin (3.4-5.0) g/dL Globulin (2.6-4.0) g/dL Albumin/Globulin Ratio (0.9-1.6) Urine Color Urine Appearance Urine pH (5.0-8.0) Ur Specific [place] (1.001-1.035) Urine Protein (NEGATIVE) mg/dL Urine Glucose (UA) (NEGATIVE) mg/dL Urine Ketones (NEGATIVE) mg/dL Urine Occult Blood (NEGATIVE) Urine Nitrite (NEGATIVE) Urine Bilirubin (NEGATIVE) Urine Urobilinogen (<2.0) EU/dL Ur Leukocyte Esterase (NEGATIVE) Urine HCG, Qual (NEGATIVE) Ketones (NEG) Meds: Medications Discontinued Medications Generic Name Dose Route Start Last Admin Trade Name Jesse PRN Reason Stop Dose Admin Sodium Chloride 1,000 mls @ 999 mls/hr 08/12/20 10:49 08/12/20 10:57 Normal Saline IV 08/12/20 11:49 999 mls/hr BOLUS ONE Administration Sodium Chloride 1,000 mls @ 999 mls/hr 08/12/20 10:57 08/12/20 12:08 Normal Saline IV 08/12/20 11:57 125 mls/hr STAT ONE Infusion Insulin Human Regular 2 unit 08/12/20 12:15 08/12/20 13:48 Novolin R SUBCUT 3 units ASDIRECTED AUGUSTINE Administration Protocol Insulin Human Regular 3 unit 08/12/20 14:30 08/12/20 14:35 Novolin R SUBCUT 3 units ASDIRECTED AUGUSTINE Administration Protocol Departure - Departure Time of Disposition: 14:28 Disposition: Home, Self-Care 01 Clinical Impression: Hyperglycemia - Discharge Information Instructions: Hyperglycemia, [id number] Referrals: PCP,Not In Area [Primary Care Provider] - Forms: ED Department Discharge Additional Instructions: The following information is given to patients seen in the emergency department who are being discharged to home. This information is to outline your options for follow-up care. We provide all patients seen in our emergency department with a follow-up referral. The need for follow-up, as well as the timing and circumstances, are variable depending upon the specifics of your emergency department visit. If you don't have a primary care physician on staff, we will provide you with a referral. We always advise you to contact your personal physician following an emergency department visit to inform them of the circumstance of the visit and for follow-up with them and/or the need for any referrals to a consulting specialist. The emergency department will also refer you to a specialist when appropriate. This referral assures that you have the opportunity for follow-up care with a specialist. All of these measure are taken in an effort to provide you with optimal care, which includes your follow-up. Under all circumstances we always encourage you to contact your private physician who remains a resource for coordinating your care. When calling for follow-up care, please make the office aware that this follow-up is from your recent emergency room visit. If for any reason you are refused follow-up, please contact the [facility] at and asked to speak to the emergency department charge nurse. [facility] [address] [place] [id number] [id number] 1. Follow-up with your primary care provider/educator senior clinical as discussed. Return to the ED as needed and as discussed. Sepsis Event Note (ED) - Evaluation Sepsis Screening Result: No Definite Risk - Focused Exam Vital Signs: Vital Signs Temp Pulse Resp BP Pulse Ox 08/12/20 14:47 97.2 F 76 16 111/65 98 08/12/20 10:27 96.8 F L 89 16 117/63 97 - My Orders Last 24 Hours: My Active Orders 08/12/20 11:33 Consult to Bradley Linebacker Crewmember [Consult to Diabetic Nurse Specialist] [CONS] Stat - Assessment/Plan Last 24 Hours: My Active Orders 08/12/20 11:33 Consult to Bradley Linebacker Crewmember [Consult to Diabetic Nurse Specialist] [CONS] Stat
[2020-08-12 11:27] LABS: BLOOD UREA NITROGEN,BUN 14 mg/dL (7.0-18.0); CARBON DIOXIDE,CO2 22.4 mmol/L (21.0-32.0); CHLORIDE,CL 101 mmol/L (98-107); GLUCOSE RANDOM 399 mg/dL (74-106); POTASSIUM,K 3.9 mmol/L (3.5-5.1); SODIUM,NA 136 mmol/L (136-145)
[2020-08-12] MEDS ORDERED: Insulin Regular, Human 100 Units/ML 10 ML Vial SUBCUT SCH ×2 (12:15→14:30)
[2020-08-12 14:48] VITALS: BP 111/65; PULSE 76
== END 2020-08-12 14:47 | disposition home or self-care (01) ==
LOC: MW.ED 10:07
DX: E10.65 Type 1 diabetes mellitus with hyperglycemia (principal); J45.909 Unspecified asthma, uncomplicated; Z88.2 Allergy status to sulfonamides; Z91.040 Latex allergy status; Z88.8 Allergy status to other drugs, medicaments and biological substances; Z88.1 Allergy status to other antibiotic agents; Z72.0 Tobacco use
CPT/HCPCS: 80053; 81003; 81025; 82009; 82803; 82962; 83605; 85025; 99284; J7030; 99283; J1815-GY

== ENCOUNTER 2020-11-08 13:45 | Emergency (ER) | payer BC, MEDICAID ==
--- NOTE | 2020-11-08 14:14 | EDM.PDOC ---
ED HPI GENERAL MEDICAL PROBLEM - General Chief Complaint: Respiratory Problem Stated Complaint: COUGH SORE THROAT Time Seen by Provider: 11/08/20 13:46 - History of Present Illness INITIAL COMMENTS - FREE TEXT/NARRATIVE: 25-year-old female with history of type 1 diabetes presenting with sore throat but also malaise nonproductive cough myalgias and headache. Symptoms have been going on for the last 3 days. No shortness of breath but some sensation of tightness in her chest with breathing. Patient has a history of asthma her inhaler did help with a bad coughing fit earlier today. Patient's is also a type I diabetic and so they are concerned about the possibility of Covid. No abdominal pain no nausea no vomiting no diarrhea. Patient's blood sugars have been in the upper 100s higher than ideal but relatively normal for her. headache Pain Score (Numeric/FACES): 5 bodyaches Pain Score (Numeric/FACES): 4 - Related Data Allergies Allergy/AdvReac Type Severity Reaction Status Date / Time Sulfa (Sulfonamide Allergy Intermediate Anaphylactic Verified 11/08/20 14:30 Antibiotics) Shock adhesive tape Allergy Rash Verified 11/08/20 14:30 cefaclor [From Ceclor] Allergy Anaphylactic Verified 11/08/20 14:30 Shock latex Allergy Itching Verified 11/08/20 14:30 Home Meds: Home Meds Desvenlafaxine Succinate [Pristiq] 25 mg PO DAILY 11/08/20 [History] Insulin Degludec [Tresiba] 0 units SQ ASDIRECTED 11/08/20 [History] busPIRone [Buspar] 0 mg PO TID 11/08/20 [History] Past Medical History - Past Health History Medical/Surgical History: Denies Medical/Surgical History HEENT History: Reports: Other (See Below) Other HEENT History: wears glasses Cardiovascular History: Reports: Other (See Below) Other Cardiovascular History: usually has low blood pressure Respiratory History: Reports: Asthma Other Respiratory History: exercise induced - rarely uses inhaler Gastrointestinal History: Reports: GERD, Hemorrhoids Other Gastrointestinal History: heartburn during Genitourinary History: Reports: None SASH INSTALLER History: Reports: Other SASH INSTALLER History: Musculoskeletal History: Reports: Back Pain, Chronic Neurological History: Reports: Concussion, Migraines Psychiatric History: Reports: Anxiety, Depression, PTSD Endocrine/Metabolic History: Reports: Diabetes, Gestational, Diabetes, Type I Other Endocrine/Metabolic History: only takes insulin when - otherwise is controlled by diet and exercise Insulin Pump Model and Filter Helper: None Hematologic History: Reports: Iron Deficiency, Other (See Below) Other Hematologic History: states has had Iron transfusion-last on Jun 14 Immunologic History: Reports: None, SLE Oncologic (Cancer) History: Reports: None Dermatologic History: Reports: Other (See Below) Other Dermatologic History: very dry skin - Infectious Disease History Infectious Disease History: Reports: None - Past Surgical History Head Surgeries/Procedures: Reports: None HEENT Surgical History: Reports: Tonsillectomy GI Surgical History: Reports: Other (See Below) Other GI Surgeries/Procedures: hemorroidectomy Female Surgical History: Reports: Section Musculoskeletal Surgical History: Reports: Shoulder Surgery Other Musculoskeletal Surgeries/Procedures:: shoulder reconstruction- left shoulder- no hardware Social & Family History - Family History Family Medical History: No Pertinent Family History - Caffeine Use Caffeine Use: Reports: None ED ROS GENERAL - Review of Systems Review Of Systems: See Below Free Text/Narrative/Comment: General: No fever. Skin: No rash. Eyes: No vision problems. ENT: Per HPI Neck: No neck stiffness. Respiratory: Per HPI Cardiac: Per HPI Gastrointestinal: No nausea, vomiting or abdominal pain. Musculoskeletal: Per HPI Neurologic: Per HPI ED EXAM, GENERAL - Physical Exam Exam: See Below Free Text/Narrative:: General Appearance: No acute distress, appears comfortable Skin: No rash HEENT: Normocephalic/atraumatic, sclera anicteric, mucous membranes moist, posterior oropharyngeal erythema, uvula midline, no submental or sublingual swelling no trismus Neck: Normal range of motion Chest and Lungs: Bilateral breath sounds, clear to auscultation, no wheezing Cardiovascular: Regular rate and rhythm, no murmur Abdomen: Soft, non-tender Back: Normal Musculoskeletal: No edema or tenderness Neurologic: Awake, alert, no obvious deficits, moving all extremities Psychiatric: Appropriate, cooperative Course - Vital Signs Last Recorded V/S: Last Vital Signs Temp 98.1 F 11/08/20 13:54 Pulse 91 11/08/20 13:54 Resp 17 11/08/20 13:54 BP 111/63 11/08/20 13:54 Pulse Ox 96 11/08/20 13:54 - Orders/Labs/Meds Labs: Laboratory Tests 11/08/20 11/08/20 Range/Units 14:15 14:15 Influenza Type A RNA NEGATIVE (NEGATIVE) Influenza Type B RNA NEGATIVE (NEGATIVE) SARS-CoV-2 RNA ([facility]) NEGATIVE (NEGATIVE) Group A Strep (PCR) NOT DETECTED (NOT DETECT) Departure - Departure Time of Disposition: 15:18 Disposition: Home, Self-Care 01 Condition: Good Clinical Impression: Acute viral laryngitis - Discharge Information *PRESCRIPTION DRUG MONITORING PROGRAM REVIEWED*: Not Applicable *COPY OF PRESCRIPTION DRUG MONITORING REPORT IN PATIENT ANA: Not Applicable Instructions: Laryngitis Referrals: Concepcion Martino, [Primary Care Provider] - Forms: ED Department Discharge Additional Instructions: Your strep swab and your Covid swab were both negative. You likely have the same upper respiratory virus that your son had last weekend. I encourage you to try a couple sprays of albuterol to back of your throat and/or an [id number] throat spray to help with the throat pain. Because your lungs sounded clear on exam and because of your history of diabetes we decided not to do any steroids today. However, if you feel worse particularly if you have worsening chest pain or worsening shortness of breath please call your doctor or return to the ER. The following information is given to patients seen in the emergency department who are being discharged to home. This information is to outline your options for follow-up care. We provide all patients seen in our emergency department with a follow-up referral. The need for follow-up, as well as the timing and circumstances, are variable depending upon the specifics of your emergency department visit. If you don't have a primary care physician on staff, we will provide you with a referral. We always advise you to contact your personal physician following an emergency department visit to inform them of the circumstance of the visit and for follow-up with them and/or the need for any referrals to a consulting specialist. The emergency department will also refer you to a specialist when appropriate. This referral assures that you have the opportunity for follow-up care with a specialist. All of these measure are taken in an effort to provide you with opti mal care, which includes your follow-up. Under all circumstances we always encourage you to contact your private physician who remains a resource for coordinating your care. When calling for follow-up care, please make the office aware that this follow-up is from your recent emergency room visit. If for any reason you are refused follow-up, please contact the Emergency Department at and asked to speak to the emergency department charge nurse. Sepsis Event Note (ED) - Focused Exam Vital Signs: Vital Signs Temp Pulse Resp BP Pulse Ox 11/08/20 13:54 98.1 F 91 17 111/63 96 - Assessment/Plan Assessment:: 25-year-old female with history of type 1 diabetes but with no signs of DKA presenting with signs and symptoms most consistent with viral laryngitis versus strep versus Covid. Covid and strep swab pending lungs are clear no fever no indication for chest x-ray at this point. Patient clinically well-appearing no vomiting indication for blood work at this point. No signs of MEDICAL RECORD LIBRARIAN or RPA no signs of meningitis or encephalitis 1520: Swabs negative patient discharged, return precautions discussed and understood
[2020-11-08 14:30] VITALS: BP 111/63; PULSE 91
[2020-11-08 15:07] LABS: CORONAVIRUS COVID-19 NAA NEGATIVE (NEGATIVE); INFLUENZA A NAA NEGATIVE (NEGATIVE); INFLUENZA B NAA NEGATIVE (NEGATIVE)
== END 2020-11-08 15:30 | disposition home or self-care (01) ==
LOC: MW.ED 13:45
DX: J04.0 Acute laryngitis (principal); E10.9 Type 1 diabetes mellitus without complications; J45.909 Unspecified asthma, uncomplicated; Z79.899 Other long term (current) drug therapy; Z20.822 Contact with and (suspected) exposure to COVID-19; Z88.2 Allergy status to sulfonamides; Z91.048 Other nonmedicinal substance allergy status; Z88.1 Allergy status to other antibiotic agents; Z91.040 Latex allergy status
CPT/HCPCS: 0240U; 87651-QW; 99282; 99283

== ENCOUNTER 2020-12-25 10:01 | Emergency (ER) | payer BC ==
--- NOTE | 2020-12-25 10:13 | EDM.PDOC ---
ED HPI GENERAL MEDICAL PROBLEM - General Chief Complaint: Diabetic Complaint Stated Complaint: DIABETIC Time Seen by Provider: 12/25/20 10:10 Source of Information: Reports: Patient History Limitations: Reports: No Limitations - History of Present Illness INITIAL COMMENTS - FREE TEXT/NARRATIVE: HISTORY AND PHYSICAL: History of present illness: Patient is a 25-year-old female who presents to the emergency room with complaints of elevated blood sugars. 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 She does have episodes where her blood sugars run between 200 - 300 in which she will have to give herself insulin for a short period of time. She reports that increased stressors typically is what "sets me off". She recently just started working again and could tell her blood sugar was elevated this morning. She has given herself 6 separate injections of 10 units each = 60 units in total this morning. Blood sugars have ranged from 240 - 430. Patient reports that "when this happens I typically need IV fluids to get me over the hump". She states she does not want any insulin at this time because usually "I crashed when I get home". Patient denies any fever, chills, headache, change in vision, syncope or near syncope. Denies any chest pain, back pain, shortness of breath or cough. Denies any abdominal pain, nausea, vomiting, diarrhea, constipation or dysuria. Has not noted any blood in urine or stool. Patient has been eating and drinking appropriately. She is seen an director global intelligence and her primary care provider for routine care. Review of systems: As per history of present illness and below otherwise all systems reviewed and negative. Past medical history: As per history of present illness and as reviewed below otherwise noncontributory. Surgical history: As per history of present illness and as reviewed below otherwise noncontributory. Social history: See social history for further information Family history: As per history of present illness and as reviewed below otherwise n oncontributory. Physical exam: General: Well developed and well nourished. Alert and orientated x 3. Nontoxic in appearance and in no acute distress. Vital signs are stable and have been reviewed by me. Nursing notes were reviewed. HEENT: Atraumatic, normocephalic, pupils equal and reactive bilaterally, negative for conjunctival pallor or scleral icterus, mucous membranes moist, TMs normal bilaterally, throat clear, neck supple, nontender, trachea midline. No drooling or trismus noted. No meningeal signs. No hot potato voice noted. Lungs: Clear to auscultation bilaterally. No wheezes, rales, or rhonchi. Chest nontender. Normal work of breathing, no accessory muscles used. Heart: S1S2, regular rate and rhythm without overt murmur, gallops, or rubs. No JVD. No peripheral edema Abdomen: Soft, nondistended, nontender. Normoactive bowel sounds. Negative for masses or costovertebral tenderness. Skin: Intact, warm, dry. No lesions or rashes noted. Hematologic: No petechiae or purpra. Mucosa appropriate color and normal nail bed color and refill. Extremities: Atraumatic, moves all extremities per self without difficulty or deficits, negative for cords or calf pain. Neurovascular unremarkable. Neuro: Awake, alert, oriented. Cranial nerves II through XII unremarkable. Cerebellum unremarkable. Motor and sensory unremarkable throughout. Exam nonfocal. Psychiatric: Mood and affect are appropriate. Normal thought process. Answering questions appropriately. Notes: *This patient was seen and evaluated during the 2019 SARS-CoV-2 novel coronavirus pandemic period. Community viral transmission is ongoing at time of this encounter and the emergency department is operating under pandemic response procedures. Patient is a 25-year-old female who presents to the emergency room with co mplaints of elevated blood sugars that started this morning. Patient does have a rare form of diabetes in which she is typically controlled with diet and exercise but does occasionally require insulin when under increased stress. She states episodes like this happens once every few months in which she does require IV fluids and is able to "turn it around" to be discharged home. She recently started new employment and had noted she was under increased stress and her last blood sugar was 430 despite giving herself insulin at home. Her physical exam is unremarkable. Due to her having just had 60 units of insulin over the past 2 to 3 hours I will give her IV fluids and watch her closely. Current BS 446. She is agreeable to basic lab work at this time. Patient initially had reported that she had given herself 60 units of insulin prior to arrival and regardless her blood sugar kept climbing. She did request to have fluids before giving her any insulin. She did get a small amount of insulin subcu and her blood sugar is responding appropriately, trending downward. I will give her a second small dose of insulin to continue to correct her blood sugar. Initial lactate was 3.0 I will repeat this as well to make sure it is trending appropriately. Blood sugar and lactate have come down appropriately. We discussed admission versus discharged home. She would prefer to be discharged home which I and Dr Shaikh agree with. Vital signs are stable. I have talked with the patient about today's findings, in addition to providing specific details for plan of care. Reassessment at the time of disposition demonstrates that the patient is in no acute distress. The patient is stable for discharge, counseling was provided and we discussed in great detail signs and symptoms that would prompt them to return to the Emergency Department. Medication, follow up and supportive care measures were reviewed and discussed. Voices understanding and is agreeable to plan of care. Denies any further questions or concerns at this time. Diagnostics: CBC, CMP, UA, urine , VBG, serum ketones, lactate Therapeutics: IV fluids Prescription: None Impression: Hyperglycemia Plan: 1. You were evaluated today on an emergent basis. Your blood sugar responded with insulin; please continue to monitor your blood sugars closely and take you insulin as directed. If your symptoms should worsen, new symptoms develop or any of the signs and symptoms we discussed should arise please return to the emergency room or call 911 (if needed). 2. You can alternate Tylenol and ibuprofen as needed for pain and fever management. 3. We encourage you to follow up with your primary care provider and/or recommended specialist in the next few days for re-evaluation and further care/management. Definitive disposition and diagnosis as appropriate pending reevaluation and review of above. Headache Pain Score (Numeric/FACES): 4 - Related Data Allergies Allergy/AdvReac Type Severity Reaction Status Date / Time Sulfa (Sulfonamide Allergy Intermediate Anaphylactic Verified 12/25/20 10:12 Antibiotics) Shock adhesive tape Allergy Rash Verified 12/25/20 10:12 cefaclor [From Ceclor] Allergy Anaphylactic Verified 12/25/20 10:12 Shock latex Allergy Itching Verified 12/25/20 10:12 Home Meds: Home Meds Desvenlafaxine Succinate [Pristiq] 25 mg PO DAILY 11/08/20 [History] Insulin Degludec [Tresiba] 0 units SQ ASDIRECTED 11/08/20 [History] busPIRone [Buspar] 0 mg PO TID 11/08/20 [History] Past Medical History - Past Health History Medical/Surgical History: Denies Medical/Surgical History HEENT History: Reports: Other (See Below) Other HEENT History: wears glasses Cardiovascular History: Reports: Other (See Below) Other Cardiovascular History: usually has low blood pressure Respiratory History: Reports: Asthma Other Respiratory History: exercise induced - rarely uses inhaler Gastrointestinal History: Reports: GERD, Hemorrhoids Other Gastrointestinal History: heartburn during Genitourinary History: Reports: None 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: Musculoskeletal History: Reports: Back Pain, Chronic Neurological History: Reports: Concussion, Migraines Psychiatric History: Reports: Anxiety, Depression, PTSD Endocrine/Metabolic History: Reports: Diabetes, Gestational, Diabetes, Type I Other Endocrine/Metabolic History: only takes insulin when - otherwise is controlled by diet and exercise Insulin Pump Model and Counter Tender: None Hematologic History: Reports: Iron Deficiency, Other (See Below) Other Hematologic History: states has had Iron transfusion-last on Jun 14 Immunologic History: Reports: None, SLE Oncologic (Cancer) History: Reports: None Dermatologic History: Reports: Other (See Below) Other Dermatologic History: very dry skin - Infectious Disease History Infectious Disease History: Reports: None - Past Surgical History Head Surgeries/Procedures: Reports: None HEENT Surgical History: Reports: Tonsillectomy GI Surgical History: Reports: Other (See Below) Other GI Surgeries/Procedures: hemorroidectomy Female Surgical History: Reports: Section Musculoskeletal Surgical History: Reports: Shoulder Surgery Other Musculoskeletal Surgeries/Procedures:: shoulder reconstruction- left shoulder- no hardware Social & Family History - Family History Family Medical History: No Pertinent Family History - Caffeine Use Caffeine Use: Reports: None ED ROS GENERAL - Review of Systems Review Of Systems: Comprehensive ROS is negative, except as noted in HPI. ED EXAM GENERAL NO PERIP PULSE - Physical Exam Exam: See Below (SEe dictation) Course - Vital Signs Last Recorded V/S: Last Vital Signs Temp 98 F 12/25/20 10:13 Pulse 66 12/25/20 10:13 Resp 16 12/25/20 10:13 BP 106/62 12/25/20 10:13 Pulse Ox 98 12/25/20 10:13 - Orders/Labs/Meds Orders: Active Orders 24 hr Category Date Time Status Blood Glucose Check, Bedside [RC] ONETIME Care 12/25/20 10:14 Active Blood Glucose Check, Bedside [RC] ONETIME Care 12/25/20 10:51 Active REFLEX LACTIC ACID YES OR NO [CHEM] Routine Lab 12/25/20 11:20 Received REFLEX LACTIC ACID YES OR NO [CHEM] Routine Lab 12/25/20 13:53 Received Dextrose 50% in Water Med 12/25/20 11:54 Active 50 ml IVPUSH ASDIRECTED PRN Dextrose 50% in Water Med 12/25/20 12:59 Active 50 ml IVPUSH ASDIRECTED PRN Glucagon,Human Recombinant [GlucaGen] Med 12/25/20 11:54 Active 1 mg IM ASDIRECTED PRN Glucagon,Human Recombinant [GlucaGen] Med 12/25/20 12:59 Active 1 mg IM ASDIRECTED PRN Sodium Chloride 0.9% [Saline Flush] Med 12/25/20 10:14 Active 10 ml FLUSH ASDIRECTED PRN Sodium Chloride 0.9% [Saline Flush] Med 12/25/20 10:14 Active 2.5 ml FLUSH ASDIRECTED PRN Saline Lock Insert [OM.PC] Stat Oth 12/25/20 10:14 Ordered Medication Orders Dextrose/Water (50% Dextrose In Water 50 Ml Syringe) 50 ml IVPUSH ASDIRECTED PRN PRN Reason: Hypoglycemia Dextrose/Water (50% Dextrose In Water 50 Ml Syringe) 50 ml IVPUSH ASDIRECTED PRN PRN Reason: Hypoglycemia Glucagon (Glucagon,Human Recombinant 1 Mg Vial) 1 mg IM ASDIRECTED PRN PRN Reason: Hypoglycemia Glucagon (Glucagon,Human Recombinant 1 Mg Vial) 1 mg IM ASDIRECTED PRN PRN Reason: Hypoglycemia Sodium Chloride (Sodium Chloride 0.9% 10 Ml Syringe) 10 ml FLUSH ASDIRECTED PRN PRN Reason: Keep Vein Open Last Admin: 12/25/20 10:38 Dose: 10 ml Documented by: ASIF Sodium Chloride (Sodium Chloride 0.9% 2.5 Ml Syringe) 2.5 ml FLUSH ASDIRECTED PRN PRN Reason: Keep Vein Open Last Admin: 12/25/20 10:38 Dose: 2.5 ml Documented by: ASIF Labs: Laboratory Tests 12/25/20 12/25/20 12/25/20 Range/Units 10:14 10:15 10:15 WBC 5.07 (4.0-11.0) K/uL RBC 4.36 (4.30-5.90) M/uL Hgb 13.5 (12.0-16.0) g/dL Hct 41.7 (36.0-46.0) % MCV 95.6 (80.0-98.0) fL MCH 31.0 (27.0-32.0) pg MCHC 32.4 (31.0-37.0) g/dL RDW Std Deviation 42.6 (28.0-62.0) fl RDW Coeff of Shaun 12 (11.0-15.0) % Plt Count 177 (150-400) K/uL MPV 11.50 (7.40-12.00) fL Neut % (Auto) 59.6 (48.0-80.0) % Lymph % (Auto) 26.2 (16.0-40.0) % Dixon % (Auto) 11.4 (0.0-15.0) % Eos % (Auto) 2.4 (0.0-7.0) % Baso % (Auto) 0.4 (0.0-1.5) % Neut # (Auto) 3.0 (1.4-5.7) K/uL Lymph # (Auto) 1.3 (0.6-2.4) K/uL Dixon # (Auto) 0.6 (0.0-0.8) K/uL Eos # (Auto) 0.1 (0.0-0.7) K/uL Baso # (Auto) 0.0 (0.0-0.1) K/uL Nucleated RBC % 0.0 /100WBC Nucleated RBCs # 0 K/uL VBG pH (7.31-7.41) VBG pCO2 (41-51) mmHG VBG pO2 mmHG VBG HCO3 (23-28) mEq/L VBG Total CO2 (24-29) mmol/L VBG Base Excess (-2.0-3.0) Sodium 138 (136-145) mmol/L Potassium 4.2 (3.5-5.1) mmol/L Chloride 102 (98-107) mmol/L Carbon Dioxide 23.9 (21.0-32.0) mmol/L BUN 15 (7.0-18.0) mg/dL Creatinine 0.9 (0.6-1.0) mg/dL Est Cr Clr Drug Dosing 83.23 mL/min Estimated GFR (MDRD) > 60.0 ml/min Glucose 486 H (74-106) mg/dL POC Glucose 446 H* (70-99) mg/dL Lactic Acid (0.4-2.0) mmol/L Calcium 8.5 (8.5-10.1) mg/dL Total Bilirubin 0.4 (0.2-1.0) mg/dL AST 12 L (15-37) IU/L ALT 23 (14-63) IU/L Alkaline Phosphatase 104 (46-116) U/L Total Protein 7.2 (6.4-8.2) g/dL Albumin 3.6 (3.4-5.0) g/dL Globulin 3.6 (2.6-4.0) g/dL Albumin/Globulin Ratio 1.0 (0.9-1.6) Urine Color Urine Appearance Urine pH (5.0-8.0) Ur Specific Story (1.001-1.035) Urine Protein (NEGATIVE) mg/dL Urine Glucose (UA) (NEGATIVE) mg/dL Urine Ketones (NEGATIVE) mg/dL Urine Occult Blood (NEGATIVE) Urine Nitrite (NEGATIVE) Urine Bilirubin (NEGATIVE) Urine Urobilinogen (<2.0) EU/dL Ur Leukocyte Esterase (NEGATIVE) Urine HCG, Qual (NEGATIVE) Ketones (NEG) 12/25/20 12/25/20 12/25/20 Range/Units 10:15 10:33 10:33 WBC (4.0-11.0) K/uL RBC (4.30-5.90) M/uL Hgb (12.0-16.0) g/dL Hct (36.0-46.0) % MCV (80.0-98.0) fL MCH (27.0-32.0) pg MCHC (31.0-37.0) g/dL RDW Std Deviation (28.0-62.0) fl RDW Coeff of Shaun (11.0-15.0) % Plt Count (150-400) K/uL MPV (7.40-12.00) fL Neut % (Auto) (48.0-80.0) % Lymph % (Auto) (16.0-40.0) % Dixon % (Auto) (0.0-15.0) % Eos % (Auto) (0.0-7.0) % Baso % (Auto) (0.0-1.5) % Neut # (Auto) (1.4-5.7) K/uL Lymph # (Auto) (0.6-2.4) K/uL Dixon # (Auto) (0.0-0.8) K/uL Eos # (Auto) (0.0-0.7) K/uL Baso # (Auto) (0.0-0.1) K/uL Nucleated RBC % /100WBC Nucleated RBCs # K/uL VBG pH 7.46 H (7.31-7.41) VBG pCO2 29 L (41-51) mmHG VBG pO2 195 mmHG VBG HCO3 20 L (23-28) mEq/L VBG Total CO2 19 L (24-29) mmol/L VBG Base Excess -2.4 L (-2.0-3.0) Sodium (136-145) mmol/L Potassium (3.5-5.1) mmol/L Chloride (98-107) mmol/L Carbon Dioxide (21.0-32.0) mmol/L BUN (7.0-18.0) mg/dL Creatinine (0.6-1.0) mg/dL Est Cr Clr Drug Dosing mL/min Estimated GFR (MDRD) ml/min Glucose (74-106) mg/dL POC Glucose (70-99) mg/dL Lactic Acid 3.0 H* (0.4-2.0) mmol/L Calcium (8.5-10.1) mg/dL Total Bilirubin (0.2-1.0) mg/dL AST (15-37) IU/L ALT (14-63) IU/L Alkaline Phosphatase (46-116) U/L Total Protein (6.4-8.2) g/dL Albumin (3.4-5.0) g/dL Globulin (2.6-4.0) g/dL Albumin/Globulin Ratio (0.9-1.6) Urine Color Urine Appearance Urine pH (5.0-8.0) Ur Specific Story (1.001-1.035) Urine Protein (NEGATIVE) mg/dL Urine Glucose (UA) (NEGATIVE) mg/dL Urine Ketones (NEGATIVE) mg/dL Urine Occult Blood (NEGATIVE) Urine Nitrite (NEGATIVE) Urine Bilirubin (NEGATIVE) Urine Urobilinogen (<2.0) EU/dL Ur Leukocyte Esterase (NEGATIVE) Urine HCG, Qual (NEGATIVE) Ketones NEGATIVE (NEG) 12/25/20 12/25/20 12/25/20 Range/Units 10:37 10:37 12:02 WBC (4.0-11.0) K/uL RBC (4.30-5.90) M/uL Hgb (12.0-16.0) g/dL Hct (36.0-46.0) % MCV (80.0-98.0) fL MCH (27.0-32.0) pg MCHC (31.0-37.0) g/dL RDW Std Deviation (28.0-62.0) fl RDW Coeff of Shaun (11.0-15.0) % Plt Count (150-400) K/uL MPV (7.40-12.00) fL Neut % (Auto) (48.0-80.0) % Lymph % (Auto) (16.0-40.0) % Dixon % (Auto) (0.0-15.0) % Eos % (Auto) (0.0-7.0) % Baso % (Auto) (0.0-1.5) % Neut # (Auto) (1.4-5.7) K/uL Lymph # (Auto) (0.6-2.4) K/uL Dixon # (Auto) (0.0-0.8) K/uL Eos # (Auto) (0.0-0.7) K/uL Baso # (Auto) (0.0-0.1) K/uL Nucleated RBC % /100WBC Nucleated RBCs # K/uL VBG pH (7.31-7.41) VBG pCO2 (41-51) mmHG VBG pO2 mmHG VBG HCO3 (23-28) mEq/L VBG Total CO2 (24-29) mmol/L VBG Base Excess (-2.0-3.0) Sodium (136-145) mmol/L Potassium (3.5-5.1) mmol/L Chloride (98-107) mmol/L Carbon Dioxide (21.0-32.0) mmol/L BUN (7.0-18.0) mg/dL Creatinine (0.6-1.0) mg/dL Est Cr Clr Drug Dosing mL/min Estimated GFR (MDRD) ml/min Glucose (74-106) mg/dL POC Glucose 367 H (70-99) mg/dL Lactic Acid (0.4-2.0) mmol/L Calcium (8.5-10.1) mg/dL Total Bilirubin (0.2-1.0) mg/dL AST (15-37) IU/L ALT (14-63) IU/L Alkaline Phosphatase (46-116) U/L Total Protein (6.4-8.2) g/dL Albumin (3.4-5.0) g/dL Globulin (2.6-4.0) g/dL Albumin/Globulin Ratio (0.9-1.6) Urine Color YELLOW Urine Appearance CLEAR Urine pH 6.5 (5.0-8.0) Ur Specific Story 1.010 (1.001-1.035) Urine Protein NEGATIVE (NEGATIVE) mg/dL Urine Glucose (UA) >=1000 (NEGATIVE) mg/dL Urine Ketones NEGATIVE (NEGATIVE) mg/dL Urine Occult Blood NEGATIVE (NEGATIVE) Urine Nitrite NEGATIVE (NEGATIVE) Urine Bilirubin NEGATIVE (NEGATIVE) Urine Urobilinogen 0.2 (<2.0) EU/dL Ur Leukocyte Esterase NEGATIVE (NEGATIVE) Urine HCG, Qual NEGATIVE (NEGATIVE) Ketones (NEG) 12/25/20 12/25/20 12/25/20 Range/Units 12:46 13:20 14:00 WBC (4.0-11.0) K/uL RBC (4.30-5.90) M/uL Hgb (12.0-16.0) g/dL Hct (36.0-46.0) % MCV (80.0-98.0) fL MCH (27.0-32.0) pg MCHC (31.0-37.0) g/dL RDW Std Deviation (28.0-62.0) fl RDW Coeff of Shaun (11.0-15.0) % Plt Count (150-400) K/uL MPV (7.40-12.00) fL Neut % (Auto) (48.0-80.0) % Lymph % (Auto) (16.0-40.0) % Dixon % (Auto) (0.0-15.0) % Eos % (Auto) (0.0-7.0) % Baso % (Auto) (0.0-1.5) % Neut # (Auto) (1.4-5.7) K/uL Lymph # (Auto) (0.6-2.4) K/uL Dixon # (Auto) (0.0-0.8) K/uL Eos # (Auto) (0.0-0.7) K/uL Baso # (Auto) (0.0-0.1) K/uL Nucleated RBC % /100WBC Nucleated RBCs # K/uL VBG pH (7.31-7.41) VBG pCO2 (41-51) mmHG VBG pO2 mmHG VBG HCO3 (23-28) mEq/L VBG Total CO2 (24-29) mmol/L VBG Base Excess (-2.0-3.0) Sodium (136-145) mmol/L Potassium (3.5-5.1) mmol/L Chloride (98-107) mmol/L Carbon Dioxide (21.0-32.0) mmol/L BUN (7.0-18.0) mg/dL Creatinine (0.6-1.0) mg/dL Est Cr Clr Drug Dosing mL/min Estimated GFR (MDRD) ml/min Glucose (74-106) mg/dL POC Glucose 292 H 231 H (70-99) mg/dL Lactic Acid 2.3 H* (0.4-2.0) mmol/L Calcium (8.5-10.1) mg/dL Total Bilirubin (0.2-1.0) mg/dL AST (15-37) IU/L ALT (14-63) IU/L Alkaline Phosphatase (46-116) U/L Total Protein (6.4-8.2) g/dL Albumin (3.4-5.0) g/dL Globulin (2.6-4.0) g/dL Albumin/Globulin Ratio (0.9-1.6) Urine Color Urine Appearance Urine pH (5.0-8.0) Ur Specific Story (1.001-1.035) Urine Protein (NEGATIVE) mg/dL Urine Glucose (UA) (NEGATIVE) mg/dL Urine Ketones (NEGATIVE) mg/dL Urine Occult Blood (NEGATIVE) Urine Nitrite (NEGATIVE) Urine Bilirubin (NEGATIVE) Urine Urobilinogen (<2.0) EU/dL Ur Leukocyte Esterase (NEGATIVE) Urine HCG, Qual (NEGATIVE) Ketones (NEG) Meds: Medications Generic Name Dose Route Start Last Admin Trade Name Jesse PRN Reason Stop Dose Admin Dextrose/Water 50 ml 12/25/20 11:54 50% Dextrose In Water 50 Ml Syringe IVPUSH ASDIRECTED PRN Hypoglycemia Dextrose/Water 50 ml 12/25/20 12:59 50% Dextrose In Water 50 Ml Syringe IVPUSH ASDIRECTED PRN Hypoglycemia Glucagon 1 mg 12/25/20 11:54 Glucagon,Human Recombinant 1 Mg Vial IM ASDIRECTED PRN Hypoglycemia Glucagon 1 mg 12/25/20 12:59 Glucagon,Human Recombinant 1 Mg Vial IM ASDIRECTED PRN Hypoglycemia Sodium Chloride 10 ml 12/25/20 10:14 12/25/20 10:38 Sodium Chloride 0.9% 10 Ml Syringe FLUSH 10 ml ASDIRECTED PRN Administration Keep Vein Open Sodium Chloride 2.5 ml 12/25/20 10:14 12/25/20 10:38 Sodium Chloride 0.9% 2.5 Ml Syringe FLUSH 2.5 ml ASDIRECTED PRN Administration Keep Vein Open Discontinued Medications Generic Name Dose Route Start Last Admin Trade Name Jesse PRN Reason Stop Dose Admin Sodium Chloride 1,000 mls @ 999 mls/hr 12/25/20 10:14 12/25/20 10:38 Normal Saline IV 12/25/20 11:14 999 mls/hr STAT ONE Administration Sodium Chloride 1,000 mls @ 999 mls/hr 12/25/20 10:51 12/25/20 11:57 Normal Saline IV 12/25/20 11:51 999 mls/hr STAT ONE Administration Insulin Human Regular 8 unit 12/25/20 11:54 12/25/20 12:02 Insulin Regular, Human 100 Units/Ml 10 Ml Vial SUBCUT 12/25/20 11:55 8 unit ONETIME ONE Administration Protocol Insulin Human Regular 5 unit 12/25/20 12:59 12/25/20 13:17 Insulin Regular, Human 100 Units/Ml 10 Ml Vial SUBCUT 12/25/20 13:00 5 unit ONETIME ONE Administration Protocol Departure - Departure Time of Disposition: 14:02 Disposition: Home, Self-Care 01 Clinical Impression: Hyperglycemia - Discharge Information Instructions: Hyperglycemia, [id number] Referrals: Concepcion Martino DO [Primary Care Provider] - Forms: ED Department Discharge Additional Instructions: The following information is given to patients seen in the emergency department who are being discharged to home. This information is to outline your options for follow-up care. We provide all patients seen in our emergency department with a follow-up referral. The need for follow-up, as well as the timing and circumstances, are variable depending upon the specifics of your emergency department visit. If you don't have a primary care physician on staff, we will provide you with a referral. We always advise you to contact your personal physician following an emergency department visit to inform them of the circumstance of the visit and for follow-up with them and/or the need for any referrals to a consulting specialist. The emergency department will also refer you to a specialist when appropriate. This referral assures that you have the opportunity for follow-up care with a specialist. All of these measure are taken in an effort to provide you with optimal care, which includes your follow-up. Under all circumstances we always encourage you to contact your private physician who remains a resource for coordinating your care. When calling for follow-up care, please make the office aware that this follow-up is from your recent emergency room visit. If for any reason you are refused follow-up, please contact the [facility] at and asked to speak to the emergency department charge nurse. [facility] [address] [place] [id number] [id number] Thank you for choosing the [facility] emergency department in [place] for your medical needs today. It was a pleasure caring for you. Today you were seen in the emergency department for high blood sugars. 1. You were evaluated today on an emergent basis. Your blood sugar responded with insulin; please continue to monitor your blood sugars closely and take you insulin as directed. If your symptoms should worsen, new symptoms develop or any of the signs and symptoms we discussed should arise please return to the emergency room or call 911 (if needed). 2. You can alternate Tylenol and ibuprofen as needed for pain and fever management. 3. We encourage you to follow up with your primary care provider and/or recommended specialist in the next few days for re-evaluation and further care/management. Sepsis Event Note (ED) - Focused Exam Vital Signs: Vital Signs Temp Pulse Resp BP Pulse Ox 12/25/20 10:13 98 F 66 16 106/62 98 - My Orders Last 24 Hours: My Active Orders 12/25/20 10:14 Blood Glucose Check, Bedside [RC] ONETIME Sodium Chloride 0.9% [Saline Flush] 10 ml FLUSH ASDIRECTED PRN Sodium Chloride 0.9% [Saline Flush] 2.5 ml FLUSH ASDIRECTED PRN Saline Lock Insert [OM.PC] Stat 12/25/20 10:51 Blood Glucose Check, Bedside [RC] ONETIME 12/25/20 11:20 REFLEX LACTIC ACID YES OR NO [CHEM] Routine 12/25/20 11:54 Dextrose 50% in Water 50 ml IVPUSH ASDIRECTED PRN Glucagon,Human Recombinant [GlucaGen] 1 mg IM ASDIRECTED PRN 12/25/20 12:59 Dextrose 50% in Water 50 ml IVPUSH ASDIRECTED PRN Glucagon,Human Recombinant [GlucaGen] 1 mg IM ASDIRECTED PRN 12/25/20 13:53 REFLEX LACTIC ACID YES OR NO [CHEM] Routine - Assessment/Plan Last 24 Hours: My Active Orders 12/25/20 10:14 Blood Glucose Check, Bedside [RC] ONETIME Sodium Chloride 0.9% [Saline Flush] 10 ml FLUSH ASDIRECTED PRN Sodium Chloride 0.9% [Saline Flush] 2.5 ml FLUSH ASDIRECTED PRN Saline Lock Insert [OM.PC] Stat 12/25/20 10:51 Blood Glucose Check, Bedside [RC] ONETIME 12/25/20 11:20 REFLEX LACTIC ACID YES OR NO [CHEM] Routine 12/25/20 11:54 Dextrose 50% in Water 50 ml IVPUSH ASDIRECTED PRN Glucagon,Human Recombinant [GlucaGen] 1 mg IM ASDIRECTED PRN 12/25/20 12:59 Dextrose 50% in Water 50 ml IVPUSH ASDIRECTED PRN Glucagon,Human Recombinant [GlucaGen] 1 mg IM ASDIRECTED PRN 12/25/20 13:53 REFLEX LACTIC ACID YES OR NO [CHEM] Routine
[2020-12-25] MEDS ORDERED: Sodium Chloride 0.9% 2.5 ML Syringe FLUSH PRN (10:14)
[2020-12-25] MEDS ORDERED: Sodium Chloride 0.9% 10 ML Syringe FLUSH PRN (10:14)
[2020-12-25] MEDS ORDERED: Sodium Chloride 0.9% 1,000 ML IV ONE ×2 (10:14→10:51)
[2020-12-25 10:58] LABS: BLOOD UREA NITROGEN,BUN 15 mg/dL (7.0-18.0); CARBON DIOXIDE,CO2 23.9 mmol/L (21.0-32.0); CHLORIDE,CL 102 mmol/L (98-107); GLUCOSE RANDOM 486 mg/dL (74-106); POTASSIUM,K 4.2 mmol/L (3.5-5.1); SODIUM,NA 138 mmol/L (136-145)
[2020-12-25] MEDS ORDERED: Insulin Regular, Human 100 Units/ML 10 ML Vial SUBCUT ONE ×2 (11:54→12:59)
[2020-12-25] MEDS ORDERED: 50% Dextrose in Water 50 ML Syringe IVPUSH PRN ×2 (11:54→12:59)
[2020-12-25] MEDS ORDERED: Glucagon,Human Recombinant 1 MG Vial IM PRN ×2 (11:54→12:59)
[2020-12-25 14:31] VITALS: BP 93/48; PULSE 57
== END 2020-12-25 14:31 | disposition home or self-care (01) ==
LOC: MW.ED 10:01
DX: E10.65 Type 1 diabetes mellitus with hyperglycemia (principal); J45.909 Unspecified asthma, uncomplicated; Z88.2 Allergy status to sulfonamides; Z91.048 Other nonmedicinal substance allergy status; Z88.1 Allergy status to other antibiotic agents; Z91.040 Latex allergy status; Z79.899 Other long term (current) drug therapy
CPT/HCPCS: 36415; 80053; 81003; 81025; 82009; 82803; 82947; 83605; 85025; 99284; J7030; J1815-GY

== ENCOUNTER 2021-02-20 11:39 | Emergency (ER) | payer BC ==
[2021-02-20] MEDS ORDERED: Sodium Chloride 0.9% 10 ML Syringe FLUSH PRN (11:58)
[2021-02-20] MEDS ORDERED: Sodium Chloride 0.9% 1,000 ML IV ONE (11:58)
[2021-02-20] MEDS ORDERED: Sodium Chloride 0.9% 2.5 ML Syringe FLUSH PRN (11:58)
[2021-02-20] MEDS ORDERED: Ketorolac 30 MG/ML SDV IVPUSH ONE (11:58)
[2021-02-20 12:28] LABS: BLOOD UREA NITROGEN,BUN 13 mg/dL (7.0-18.0); CARBON DIOXIDE,CO2 23.7 mmol/L (21.0-32.0); CHLORIDE,CL 101 mmol/L (98-107); GLUCOSE RANDOM 209 mg/dL (74-106); SODIUM,NA 137 mmol/L (136-145)
[2021-02-20] MEDS ORDERED: Iopamidol 755 MG/ML 500 ML Multipack Bottle IVPUSH ONE (12:49)
--- NOTE | 2021-02-20 13:26 | CT ---
Indication: Right lower quadrant pain. Technique: Multiple contiguous axial images were obtained from the lung bases to the symphysis pubis after the intravenous administration of 100 milliliters Isovue 370. Please note that all CT scans at this facility use dose modulation, iterative reconstruction, and/or weight-based dosing when appropriate to reduce radiation dose to as low as reasonably achievable. Comparison: None Findings: The lung bases are clear. No infiltrate, pleural effusion, or pneumothorax is identified. The heart is normal in size. No pericardial effusion is identified. The liver, spleen, gallbladder, pancreas, adrenals, and kidneys are normal. No intrahepatic biliary ductal dilatation is identified. Right renal cysts are identified. No hydronephrosis is seen. In the pelvis, an IUD is identified within the uterus. Fullness is identified surrounding the uterus, of uncertain significance. The urinary bladder is grossly normal. No free air or free fluid is identified within the abdomen or pelvis. The small and large bowel are normal in caliber. The appendix is normal in caliber. The aorta is normal in caliber. No lytic or blastic lesions of the spine are identified. Impression: IUD present within the uterus. There is fullness surrounding the uterus. An ultrasound of the pelvis may be of benefit in further evaluating this finding. The may represent infectious/inflammatory etiologies. No evidence of appendicitis Please note that all CT scans at this facility use dose modulation, iterative reconstruction, and/or weight-based dosing when appropriate to reduce radiation dose to as low as reasonably achievable. Dictated by Barbara Montgomery MD @ 02/20/2021 1:24:[address] Barbara Montgomery @ Feb 20 2021 1:24PM
--- NOTE | 2021-02-20 14:46 | EDM.PDOC ---
ED HPI GENERAL MEDICAL PROBLEM - General Chief Complaint: Abdominal Pain Stated Complaint: ABDOMINAL PAIN NEAR C SECTION INCISION Time Seen by Provider: 02/20/21 11:44 - History of Present Illness INITIAL COMMENTS - FREE TEXT/NARRATIVE: HISTORY AND PHYSICAL: History of present illness: This is a 26-year-old female who presents ER today complaining of right suprapubic abdominal pain x1 to 2 days. Patient reports that the pain is over her site. Patient reports her was last done in 2018. Patient denies any recent fevers, shakes, chills, nausea, vomiting, diarrhea, dysuria, frequency, urgency, chest pain, shortness of breath. Patient denies any history of STDs and reports she had STD testing approximately 2 weeks ago. Patient does have an IUD in place. Patient denies any vaginal discharge. [place] does have some occasional vaginal bleeding which she relates to her IUD. Patient has any URI symptoms. Patient reports that the pain increases when she bears down and stands up. Patient reports she does have a history of an umbilical hernia repair in the past. Review of systems: As per history of present illness and below otherwise all systems reviewed and negative. Past medical history: As per history of present illness and as reviewed below otherwise noncontributory. Surgical history: As per history of present illness and as reviewed below otherwise noncontributory. Social history: No reported history of drug abuse. Family history: As per history of present illness and as reviewed below otherwise noncontributory. Physical exam: This patient was seen and evaluated during the 2019 SARS-CoV-2 novel coronavirus pandemic period. Community viral transmission is ongoing at time of this encounter and the emergency department is operating under pandemic response procedures. Constitutional: Patient is oriented to person, place, and time. Appears well- developed and well-nourished. No distress. HEENT: Moist mucous membranes Head: Normocephalic and atraumatic Eyes: Right eye exhibits no discharge. Left eye exhibits no discharge. No scleral icterus Neck: Normal range of motion. No tracheal deviation present. Cardiovascular: Normal rate and regular rhythm. Pulmonary: Effort normal, no respiratory distress. Abdominal: No distention Musculoskeletal: Normal range of motion Neurologic: Alert and oriented to person, place and time. Skin: [place], warm and dry. Psychiatric: Normal mood and affect. Behavior is normal. Judgment and thought content normal. Nursing note and vital signs have been reviewed PELVIC: Normal external genitalia. No significant vaginal discharge, No pain on cervical motion. No adnexal mass or tenderness. IUD string identified coming from the cervix. Minimal discharge identified from cervical opening. No discharge in vaginal vault. No cervical motion tenderness. No erythema at the cervix. Patient has no adnexal masses or tenderness. Patient is extremely low risk for PID or TOA on clinical exam. Diagnostics: CT of the abdomen pelvis was unremarkable except for solid inflammatory changes around the uterus. Ultrasound was recommended. Unfortunately we do not have access to ultrasound in the ED during the weekend for nonemergent causes. Patient's physical exam does not appear to be consistent with endometritis, tubo-ovarian abscess, PID. Patient will be referred to her primary care physician for an outpatient ultrasound as soon as can be scheduled. CBC, CMP, urinalysis unremarkable. Patient with a history of diabetes Patient was urine did reveal positive glucose but no evidence of infection Therapeutics: Toradol 30 mg IV, NSS Assessment and plan: 26-year-old female who presents ER today complaining of right lower quadrant/suprapubic abdominal pain x1 to 2 days. Patient's physical exam is u nremarkable except for tenderness to palpation. No hernia defect is palpable or appreciated even with patient standing coughing and straining. Patient does have tenderness to palpation discretely over her right pelvic region. Patient's pelvic exam was unremarkable. Patient CT scan was unremarkable except for some possible laboratory changes around the uterus however patient is exam is not consistent with endometritis or TOA or PID. At this time I do not believe that antibiotics would be indicated and I would suggest monitoring patient at home for pain. Patient feels much improved after receiving Toradol in the ED. Patient be discharged home with ibuprofen and Ultram and instructed to follow-up with her doctor early next week. Reassessment at the time of disposition demonstrates that the patient is in no acute distress. The patient has remained stable throughout the entire ED visit and is without objective evidence for acute process requiring urgent intervention or hospitalization. The patient is stable for discharge, counseling is provided as documented above, discussed symptomatic treatment and specific conditions for return. I have spoken with the patient/caregiver and discussed todays findings, in addition to providing specific details for the plan of care. Questions are answered and there is agreement with the plan. Definitive disposition and diagnosis as appropriate pending reevaluation and review of above. Right lower quadrant Pain Score (Numeric/FACES): 4 - Related Data Allergies Allergy/AdvReac Type Severity Reaction Status Date / Time Sulfa (Sulfonamide Allergy Intermediate Anaphylactic Verified 02/20/21 11:56 Antibiotics) Shock adhesive tape Allergy Rash Verified 02/20/21 11:56 cefaclor [From Ceclor] Allergy Anaphylactic Verified 02/20/21 11:56 Shock latex Allergy Itching Verified 02/20/21 11:56 Home Meds: Home Meds Insulin Degludec [Tresiba] 0 units SQ ASDIRECTED 11/08/20 [History] busPIRone [Buspar] 5 mg PO TID 11/08/20 [History] Ibuprofen 600 mg PO Q6HR PRN #30 tablet 02/20/21 [Rx] Methylphenidate HCl [Ritalin] 10 mg PO BID 02/20/21 [History] traMADol [Ultram] 50 mg PO Q6H PRN #12 tab 02/20/21 [Rx] Past Medical History - Past Health History Medical/Surgical History: Denies Medical/Surgical History HEENT History: Reports: Other (See Below) Other HEENT History: wears glasses Cardiovascular History: Reports: Other (See Below) Other Cardiovascular History: usually has low blood pressure Respiratory History: Reports: Asthma Other Respiratory History: exercise induced - rarely uses inhaler Gastrointestinal History: Reports: GERD, Hemorrhoids Other Gastrointestinal History: heartburn during Genitourinary History: Reports: None BILLING AUDITOR History: Reports: Other BILLING AUDITOR History: Musculoskeletal History: Reports: Back Pain, Chronic Neurological History: Reports: Concussion, Migraines Psychiatric History: Reports: Anxiety, Depression, PTSD Endocrine/Metabolic History: Reports: Diabetes, Gestational, Diabetes, Type I Other Endocrine/Metabolic History: only takes insulin when - otherwise is controlled by diet and exercise Insulin Pump Model and Speech Coach: None Hematologic History: Reports: Iron Deficiency, Other (See Below) Other Hematologic History: states has had Iron transfusion-last on Jun 14 Immunologic History: Reports: None, SLE Oncologic (Cancer) History: Reports: None Dermatologic History: Reports: Other (See Below) Other Dermatologic History: very dry skin - Infectious Disease History Infectious Disease History: Reports: None - Past Surgical History Head Surgeries/Procedures: Reports: None HEENT Surgical History: Reports: Tonsillectomy Cardiovascular Surgical History: Reports: None Respiratory Surgical History: Reports: None GI Surgical History: Reports: Other (See Below) Other GI Surgeries/Procedures: hemorroidectomy Female Surgical History: Reports: Section Endocrine Surgical History: Reports: None Musculoskeletal Surgical History: Reports: Shoulder Surgery Other Musculoskeletal Surgeries/Procedures:: shoulder reconstruction- left shoulder- no hardware Social & Family History - Family History Family Medical History: No Pertinent Family History - Tobacco Use Tobacco Use Status *Q: Never Tobacco User - Caffeine Use Caffeine Use: Reports: None - Recreational Drug Use Recreational Drug Use: No ED ROS GENERAL - Review of Systems Review Of Systems: See Below ED EXAM, GENERAL - Physical Exam Exam: See Below Course - Vital Signs Last Recorded V/S: Last Vital Signs Temp 96.6 F L 02/20/21 11:57 Pulse 63 02/20/21 11:57 Resp 17 02/20/21 11:57 BP 106/61 02/20/21 11:57 Pulse Ox 98 02/20/21 11:57 - Orders/Labs/Meds Orders: Active Orders 24 hr Category Date Time Status Pelvic Exam, Set Up [RC] ASDIRECTED Care 02/20/21 13:42 Active CHLAMYDIA AND GONORRHEA BY TMA Stat Lab 02/20/21 13:43 Ordered TRICH/CRISTIAN/CAND BY DNA PROBE [MOLEC] Stat Lab 02/20/21 13:42 Ordered Sodium Chloride 0.9% [Saline Flush] Med 02/20/21 11:58 Active 10 ml FLUSH ASDIRECTED PRN Sodium Chloride 0.9% [Saline Flush] Med 02/20/21 11:58 Active 2.5 ml FLUSH ASDIRECTED PRN Saline Lock Insert [OM.PC] Stat Oth 02/20/21 11:58 Ordered Medication Orders Sodium Chloride (Sodium Chloride 0.9% 10 Ml Syringe) 10 ml FLUSH ASDIRECTED PRN PRN Reason: Keep Vein Open Last Admin: 02/20/21 12:12 Dose: 10 ml Documented by: BRANDON Sodium Chloride (Sodium Chloride 0.9% 2.5 Ml Syringe) 2.5 ml FLUSH ASDIRECTED PRN PRN Reason: Keep Vein Open Last Admin: 02/20/21 12:11 Dose: 2.5 ml Documented by: BRANDON Labs: Laboratory Tests 02/20/21 02/20/21 02/20/21 Range/Units 12:00 12:00 12:00 WBC 6.02 (4.0-11.0) K/uL RBC 4.48 (4.30-5.90) M/uL Hgb 14.0 (12.0-16.0) g/dL Hct 40.8 (36.0-46.0) % MCV 91.1 (80.0-98.0) fL MCH 31.3 (27.0-32.0) pg MCHC 34.3 (31.0-37.0) g/dL RDW Std Deviation 40.6 (28.0-62.0) fl RDW Coeff of Shaun 12 (11.0-15.0) % Plt Count 190 (150-400) K/uL MPV 10.90 (7.40-12.00) fL Neut % (Auto) 56.1 (48.0-80.0) % Lymph % (Auto) 32.4 (16.0-40.0) % [place] % (Auto) 9.0 (0.0-15.0) % Eos % (Auto) 2.3 (0.0-7.0) % Baso % (Auto) 0.2 (0.0-1.5) % Neut # (Auto) 3.4 (1.4-5.7) K/uL Lymph # (Auto) 2.0 (0.6-2.4) K/uL [place] # (Auto) 0.5 (0.0-0.8) K/uL Eos # (Auto) 0.1 (0.0-0.7) K/uL Baso # (Auto) 0.0 (0.0-0.1) K/uL Nucleated RBC % 0.0 /100WBC Nucleated RBCs # 0 K/uL Sodium 137 (136-145) mmol/L Potassium 4.0 (3.5-5.1) mmol/L Chloride 101 (98-107) mmol/L Carbon Dioxide 23.7 (21.0-32.0) mmol/L BUN 13 (7.0-18.0) mg/dL Creatinine 0.8 (0.6-1.0) mg/dL Est Cr Clr Drug Dosing 92.83 mL/min Estimated GFR (MDRD) > 60.0 ml/min Glucose 209 H (74-106) mg/dL Calcium 8.5 (8.5-10.1) mg/dL Total Bilirubin 0.6 (0.2-1.0) mg/dL AST 10 L (15-37) IU/L ALT 19 (14-63) IU/L Alkaline Phosphatase 104 (46-116) U/L Total Protein 7.4 (6.4-8.2) g/dL Albumin 4.1 (3.4-5.0) g/dL Globulin 3.3 (2.6-4.0) g/dL Albumin/Globulin Ratio 1.2 (0.9-1.6) Urine Color YELLOW Urine Appearance CLEAR Urine pH 6.0 (5.0-8.0) Ur Specific [place] >= 1.030 (1.001-1.035) Urine Protein NEGATIVE (NEGATIVE) mg/dL Urine Glucose (UA) 500 H (NEGATIVE) mg/dL Urine Ketones NEGATIVE (NEGATIVE) mg/dL Urine Occult Blood NEGATIVE (NEGATIVE) Urine Nitrite NEGATIVE (NEGATIVE) Urine Bilirubin NEGATIVE (NEGATIVE) Urine Urobilinogen 0.2 (<2.0) EU/dL Ur Leukocyte Esterase NEGATIVE (NEGATIVE) Urine HCG, Qual (NEGATIVE) 02/20/21 Range/Units 12:00 WBC (4.0-11.0) K/uL RBC (4.30-5.90) M/uL Hgb (12.0-16.0) g/dL Hct (36.0-46.0) % MCV (80.0-98.0) fL MCH (27.0-32.0) pg MCHC (31.0-37.0) g/dL RDW Std Deviation (28.0-62.0) fl RDW Coeff of Shaun (11.0-15.0) % Plt Count (150-400) K/uL MPV (7.40-12.00) fL Neut % (Auto) (48.0-80.0) % Lymph % (Auto) (16.0-40.0) % [place] % (Auto) (0.0-15.0) % Eos % (Auto) (0.0-7.0) % Baso % (Auto) (0.0-1.5) % Neut # (Auto) (1.4-5.7) K/uL Lymph # (Auto) (0.6-2.4) K/uL [place] # (Auto) (0.0-0.8) K/uL Eos # (Auto) (0.0-0.7) K/uL Baso # (Auto) (0.0-0.1) K/uL Nucleated RBC % /100WBC Nucleated RBCs # K/uL Sodium (136-145) mmol/L Potassium (3.5-5.1) mmol/L Chloride (98-107) mmol/L Carbon Dioxide (21.0-32.0) mmol/L BUN (7.0-18.0) mg/dL Creatinine (0.6-1.0) mg/dL Est Cr Clr Drug Dosing mL/min Estimated GFR (MDRD) ml/min Glucose (74-106) mg/dL Calcium (8.5-10.1) mg/dL Total Bilirubin (0.2-1.0) mg/dL AST (15-37) IU/L ALT (14-63) IU/L Alkaline Phosphatase (46-116) U/L Total Protein (6.4-8.2) g/dL Albumin (3.4-5.0) g/dL Globulin (2.6-4.0) g/dL Albumin/Globulin Ratio (0.9-1.6) Urine Color Urine Appearance Urine pH (5.0-8.0) Ur Specific [place] (1.001-1.035) Urine Protein (NEGATIVE) mg/dL Urine Glucose (UA) (NEGATIVE) mg/dL Urine Ketones (NEGATIVE) mg/dL Urine Occult Blood (NEGATIVE) Urine Nitrite (NEGATIVE) Urine Bilirubin (NEGATIVE) Urine Urobilinogen (<2.0) EU/dL Ur Leukocyte Esterase (NEGATIVE) Urine HCG, Qual NEGATIVE (NEGATIVE) Meds: Medications Generic Name Dose Route Start Last Admin Trade Name Freq PRN Reason Stop Dose Admin Sodium Chloride 10 ml 02/20/21 11:58 02/20/21 12:12 Sodium Chloride 0.9% 10 Ml Syringe FLUSH 10 ml ASDIRECTED PRN Administration Keep Vein Open Sodium Chloride 2.5 ml 02/20/21 11:58 02/20/21 12:11 Sodium Chloride 0.9% 2.5 Ml Syringe FLUSH 2.5 ml ASDIRECTED PRN Administration Keep Vein Open Discontinued Medications Generic Name Dose Route Start Last Admin Trade Name Jesse PRN Reason Stop Dose Admin Sodium Chloride 1,000 mls @ 999 mls/hr 02/20/21 11:58 02/20/21 12:11 Normal Saline IV 02/20/21 12:58 999 mls/hr .Bolus ONE Administration Iopamidol 100 ml 02/20/21 12:49 02/20/21 12:50 Iopamidol 755 Mg/Ml 500 Ml Multipack Bottle IVPUSH 02/20/21 12:50 100 ml ONETIME ONE Administration Ketorolac Tromethamine 30 mg 02/20/21 11:58 02/20/21 12:10 Ketorolac 30 Mg/Ml Sdv IVPUSH 02/20/21 11:59 30 mg ONETIME ONE Administration Departure - Departure Time of Disposition: 14:46 Disposition: Home, Self-Care 01 Condition: Good Clinical Impression: Acute pelvic pain, female - Discharge Information Instructions: Pelvic Pain, Female, [id number] Referrals: PCP,None [Primary Care Provider] - Additional Instructions: You were seen and evaluated in the ER today secondary to pain to your right pelvic region. CT scan obtained today was unremarkable except for some possible inflammation around her uterus. This may or may not be related to the IUD that was placed however on your pelvic exam everything appears normal. You will be sent home with a prescription for ibuprofen and tramadol to help you with your pain. Please see your doctor on Monday so they can schedule you for an outpatient ultrasound unfortunately we are unable to obtain ultrasound here in the ED during the weekends for this condition. The following information is given to patients seen in the emergency department who are being discharged to home. This information is to outline your options for follow-up care. We provide all patients seen in our emergency department with a follow-up referral. The need for follow-up, as well as the timing and circumstances, are variable depending upon the specifics of your emergency department visit. If you don't have a primary care physician on staff, we will provide you with a referral. We always advise you to contact your personal physician following an emergency department visit to inform them of the circumstance of the visit and for follow-up with them and/or the need for any referrals to a consulting specialist. The emergency department will also refer you to a specialist when appropriate. This referral assures that you have the opportunity for follow-up care with a specialist. All of these measure are taken in an effort to provide you with optimal care, which includes your follow-up. Under all circumstances we always encourage you to contact your private physician who remains a resource for coordinating your care. When calling for follow-up care, please make the office aware that this follow-up is from your recent emergency room visit. If for any reason you are refused follow-up, please contact the [facility] Emergency Department at and asked to speak to the emergency department charge nurse. [facility] - [facility] [address] [place] [id number] [facility] [address] [place] [id number] Sepsis Event Note (ED) - Focused Exam Vital Signs: Vital Signs Temp Pulse Resp BP Pulse Ox 02/20/21 11:57 96.6 F L 63 17 106/61 98 - My Orders Last 24 Hours: My Active Orders 02/20/21 11:58 Sodium Chloride 0.9% [Saline Flush] 10 ml FLUSH ASDIRECTED PRN Sodium Chloride 0.9% [Saline Flush] 2.5 ml FLUSH ASDIRECTED PRN Saline Lock Insert [OM.PC] Stat 02/20/21 13:42 Pelvic Exam, Set Up [RC] ASDIRECTED TRICH/CRISTIAN/CAND BY DNA PROBE [MOLEC] Stat 02/20/21 13:43 CHLAMYDIA AND GONORRHEA BY TMA Stat - Assessment/Plan Last 24 Hours: My Active Orders 02/20/21 11:58 Sodium Chloride 0.9% [Saline Flush] 10 ml FLUSH ASDIRECTED PRN Sodium Chloride 0.9% [Saline Flush] 2.5 ml FLUSH ASDIRECTED PRN Saline Lock Insert [OM.PC] Stat 02/20/21 13:42 Pelvic Exam, Set Up [RC] ASDIRECTED TRICH/CRISTIAN/CAND BY DNA PROBE [MOLEC] Stat 02/20/21 13:43 CHLAMYDIA AND GONORRHEA BY TMA Stat
[2021-02-20 15:12] VITALS: BP 103/62; PULSE 57
[2021-02-22 14:01] LABS: C.TRACHOMATIS BY TMA Negative (Negative); N.GONORRHOEAE BY TMA Negative (Negative)
== END 2021-02-20 15:08 | disposition home or self-care (01) ==
LOC: MW.ED 11:39
DX: R10.2 Pelvic and perineal pain (principal); R10.31 Right lower quadrant pain; R10.33 Periumbilical pain; Z88.2 Allergy status to sulfonamides; Z91.048 Other nonmedicinal substance allergy status; Z91.040 Latex allergy status; Z88.8 Allergy status to other drugs, medicaments and biological substances
CPT/HCPCS: 36415; 74177; 80053; 81003; 81025; 85025; 87480; 87491; 87510; 87591; 87660; 96374; 99284; J1885; J7030; Q9967

== ENCOUNTER 2021-03-13 22:39 | Emergency (ER) | payer BC ==
[2021-03-14] MEDS ORDERED: Sodium Chloride 0.9% 10 ML Syringe FLUSH PRN (00:04)
[2021-03-14] MEDS ORDERED: Ondansetron 4 MG/2 ML SDV IVPUSH ONE (00:04)
[2021-03-14] MEDS ORDERED: Sodium Chloride 0.9% 1,000 ML IV ONE (00:04)
[2021-03-14] MEDS ORDERED: Sodium Chloride 0.9% 2.5 ML Syringe FLUSH PRN (00:04)
[2021-03-14] MEDS ORDERED: Nitrofurantoin Monohydrate/Macrocrystalline 100 MG Cap PO ONE (01:10)
[2021-03-14 01:16] LABS: BLOOD UREA NITROGEN,BUN 12 mg/dL (7.0-18.0); CARBON DIOXIDE,CO2 28.6 mmol/L (21.0-32.0); CHLORIDE,CL 100 mmol/L (98-107); GLUCOSE RANDOM 147 mg/dL (74-106); LIPASE 115 U/L (73-393); POTASSIUM,K 3.5 mmol/L (3.5-5.1); SODIUM,NA 138 mmol/L (136-145)
[2021-03-14 01:20] VITALS: BP 102/63
--- NOTE | 2021-03-14 01:26 | EDM.PDOC ---
ED HPI GENERAL MEDICAL PROBLEM - General Chief Complaint: Abdominal Pain Stated Complaint: VOMITTING, BOTH SIDES PAIN, PAIN WHILE URINATING Time Seen by Provider: 03/14/21 00:04 - History of Present Illness INITIAL COMMENTS - FREE TEXT/NARRATIVE: HISTORY AND PHYSICAL: History of present illness: This is a 26-year-old female who presents ER today complaining of right flank pain with associated dysuria and frequency it appears to be consistent with a prior urinary tract infection that she has had. Patient reports tactile fevers that started yesterday at 4 PM. Patient denies any diarrhea. Patient reports that she did have nausea and some vomiting. Patient reports that she has been able to tolerate p.o.'s well at home today and has not had any further episodes of vomiting today. Patient denies any pain with ambulation. Patient has any pain with coughing. Patient reports the pain is not in the right lower quadrant. Patient describes the pain is right flank and to the right side. Patient denies any hematuria but does have dysuria and frequency. Patient denies any melena or bright red blood per rectum. Review of systems: As per history of present illness and below otherwise all systems reviewed and negative. Past medical history: As per history of present illness and as reviewed below otherwise noncontributory. Surgical history: As per history of present illness and as reviewed below otherwise non contributory. Social history: No reported history of drug abuse. Family history: As per history of present illness and as reviewed below otherwise noncontributory. Physical exam: This patient was seen and evaluated during the 2019 SARS-CoV-2 novel coronavirus pandemic period. Community viral transmission is ongoing at time of this encounter and the emergency department is operating under pandemic response procedures. Constitutional: Patient is oriented to person, place, and time. Appears well- developed and well-nourished. No distress. HEENT: Moist mucous membranes Head: Normocephalic and atraumatic Eyes: Right eye exhibits no discharge. Left eye exhibits no discharge. No scleral icterus Neck: Normal range of motion. No tracheal deviation present. Cardiovascular: Normal rate and regular rhythm. Pulmonary: Effort normal, no respiratory distress. Abd: Soft, nondistended, no rebound/guarding, no psoas or obturator signs, no tenderness at Mcberney's point, no Hanley's sign. Pt does not present with an exam that would be consistent with an acute surgical abdomen at this time. Patient does have tenderness to palpation to her right periumbilical region. Musculoskeletal: Normal range of motion Neurologic: Alert and oriented to person, place and time. Skin: Crocker, warm and dry. Psychiatric: Normal mood and affect. Behavior is normal. Judgment and thought content normal. Nursing note and vital signs have been reviewed Diagnostics: Urinalysis does reveal positive nitrites with 3+ bacteria and occasional WBCs. CBC/CMP within normal limits. Therapeutics: Macrobid 100 mg p.o. twice daily x7 days Pyridium Assessment and plan: 26-year-old female who presents ER today with signs and symptoms consistent with prior urinary tract infection. Patient will get started on Macrobid to treat her infection as well as Pyridium to help her with her symptoms. Patient's presentation does not appear to be consistent with appendicitis at this time. She has no tenderness to her right lower quadrant. No rebound or guarding. No pain with ambulation. Patient does not have anorexia at this time and is hungry and has great appetite. Patient was given instructions to return to the ER for pain should migrate to the right lower quadrant if she develops any new or concerning symptoms including anorexia, fevers or further vomiting. Reassessment at the time of disposition demonstrates that the patient is in no acute distress. The patient has remained stable throughout the entire ED visit and is without objective evidence for acute process requiring urgent intervention or hospitalization. The patient is stable for discharge, counseling is provided as documented above, discussed symptomatic treatment and specific conditions for return. I have spoken with the patient/caregiver and discussed todays findings, in addition to providing specific details for the plan of care. Questions are answered and there is agreement with the plan. Definitive disposition and diagnosis as appropriate pending reevaluation and review of above. Right Flank Pain Score (Numeric/FACES): 4 - Related Data Allergies Allergy/AdvReac Type Severity Reaction Status Date / Time Sulfa (Sulfonamide Allergy Intermediate Anaphylactic Verified 02/20/21 11:56 Antibiotics) Shock adhesive tape Allergy Rash Verified 02/20/21 11:56 cefaclor [From Ceclor] Allergy Anaphylactic Verified 02/20/21 11:56 Shock latex Allergy Itching Verified 02/20/21 11:56 Home Meds: Home Meds Insulin Degludec [Tresiba] 0 units SQ ASDIRECTED 11/08/20 [History] busPIRone [Buspar] 5 mg PO TID 11/08/20 [History] Ibuprofen 600 mg PO Q6HR PRN #30 tablet 02/20/21 [Rx] Methylphenidate HCl [Ritalin] 10 mg PO BID 02/20/21 [History] traMADol [Ultram] 50 mg PO Q6H PRN #12 tab 02/20/21 [Rx] Nitrofurantoin Monohyd/M-Cryst [Macrobid 100 mg Capsule] 100 mg PO BID #14 capsule 03/14/21 [Rx] Phenazopyridine HCl [Pyridium] 200 mg PO TID #6 tablet 03/14/21 [Rx] Past Medical History - Past Health History Medical/Surgical History: Denies Medical/Surgical History HEENT History: Reports: Other (See Below) Other HEENT History: wears glasses Cardiovascular History: Reports: Other (See Below) Other Cardiovascular History: usually has low blood pressure Respiratory History: Reports: Asthma Other Respiratory History: exercise induced - rarely uses inhaler Gastrointestinal History: Reports: GERD, Hemorrhoids Other Gastrointestinal History: heartburn during Genitourinary History: Reports: None STRAWBERRY GROWER History: Reports: Other STRAWBERRY GROWER History: Musculoskeletal History: Reports: Back Pain, Chronic Neurological History: Reports: Concussion, Migraines Psychiatric History: Reports: Anxiety, Depression, PTSD Endocrine/Metabolic History: Reports: Diabetes, Gestational, Diabetes, Type I Other Endocrine/Metabolic History: only takes insulin when - otherwise is controlled by diet and exercise Insulin Pump Model and Curing Finisher: None Hematologic History: Reports: Iron Deficiency, Other (See Below) Other Hematologic History: states has had Iron transfusion-last on Jun 14 Immunologic History: Reports: None, SLE Oncologic (Cancer) History: Reports: None Dermatologic History: Reports: Other (See Below) Other Dermatologic History: very dry skin - Infectious Disease History Infectious Disease History: Reports: None - Past Surgical History Head Surgeries/Procedures: Reports: None HEENT Surgical History: Reports: Tonsillectomy Cardiovascular Surgical History: Reports: None Respiratory Surgical History: Reports: None GI Surgical History: Reports: Other (See Below) Other GI Surgeries/Procedures: hemorroidectomy Female Surgical History: Reports: Section Endocrine Surgical History: Reports: None Musculoskeletal Surgical History: Reports: Shoulder Surgery Other Musculoskeletal Surgeries/Procedures:: shoulder reconstruction- left shoulder- no hardware Social & Family History - Family History Family Medical History: No Pertinent Family History - Tobacco Use Tobacco Use Status *Q: Never Tobacco User - Caffeine Use Caffeine Use: Reports: Coffee - Recreational Drug Use Recreational Drug Use: No ED ROS GENERAL - Review of Systems Review Of Systems: See Below ED EXAM, GENERAL - Physical Exam Exam: See Below Course - Vital Signs Last Recorded V/S: Last Vital Signs Temp 96.8 F L 03/14/21 01:19 Pulse 72 03/14/21 01:19 Resp 16 03/14/21 01:19 BP 102/63 03/14/21 01:19 Pulse Ox 100 03/14/21 01:19 - Orders/Labs/Meds Orders: Active Orders 24 hr Category Date Time Status CULTURE URINE [MREF] Stat Lab 03/14/21 00:00 Received Sodium Chloride 0.9% [Saline Flush] Med 03/14/21 00:04 Active 10 ml FLUSH ASDIRECTED PRN Sodium Chloride 0.9% [Saline Flush] Med 03/14/21 00:04 Active 2.5 ml FLUSH ASDIRECTED PRN Saline Lock Insert [OM.PC] Stat Oth 03/14/21 00:04 Ordered Medication Orders Sodium Chloride (Sodium Chloride 0.9% 10 Ml Syringe) 10 ml FLUSH ASDIRECTED PRN PRN Reason: Keep Vein Open Last Admin: 03/14/21 00:48 Dose: 10 ml Documented by: FRANCISCO JAVIER Sodium Chloride (Sodium Chloride 0.9% 2.5 Ml Syringe) 2.5 ml FLUSH ASDIRECTED PRN PRN Reason: Keep Vein Open Last Admin: 03/14/21 00:48 Dose: 2.5 ml Documented by: FRANCISCO JAVIER Labs: Laboratory Tests 03/14/21 03/14/21 03/14/21 Range/Units 00:00 00:00 00:45 WBC 3.89 L (4.0-11.0) K/uL RBC 4.38 (4.30-5.90) M/uL Hgb 13.7 (12.0-16.0) g/dL Hct 40.6 (36.0-46.0) % MCV 92.7 (80.0-98.0) fL MCH 31.3 (27.0-32.0) pg MCHC 33.7 (31.0-37.0) g/dL RDW Std Deviation 38.8 (28.0-62.0) fl RDW Coeff of Shaun 12 (11.0-15.0) % Plt Count 166 (150-400) K/uL MPV 11.30 (7.40-12.00) fL Neut % (Auto) 35.7 L (48.0-80.0) % Lymph % (Auto) 39.6 (16.0-40.0) % Jack % (Auto) 19.0 H (0.0-15.0) % Eos % (Auto) 5.4 (0.0-7.0) % Baso % (Auto) 0.3 (0.0-1.5) % Neut # (Auto) 1.4 (1.4-5.7) K/uL Lymph # (Auto) 1.5 (0.6-2.4) K/uL Jack # (Auto) 0.7 (0.0-0.8) K/uL Eos # (Auto) 0.2 (0.0-0.7) K/uL Baso # (Auto) 0.0 (0.0-0.1) K/uL Sodium (136-145) mmol/L Potassium (3.5-5.1) mmol/L Chloride (98-107) mmol/L Carbon Dioxide (21.0-32.0) mmol/L BUN (7.0-18.0) mg/dL Creatinine (0.6-1.0) mg/dL Est Cr Clr Drug Dosing mL/min Estimated GFR (MDRD) ml/min Glucose (74-106) mg/dL Calcium (8.5-10.1) mg/dL Total Bilirubin (0.2-1.0) mg/dL AST (15-37) IU/L ALT (14-63) IU/L Alkaline Phosphatase (46-116) U/L Total Protein (6.4-8.2) g/dL Albumin (3.4-5.0) g/dL Globulin (2.6-4.0) g/dL Albumin/Globulin Ratio (0.9-1.6) Lipase (73-393) U/L Urine Color YELLOW Urine Appearance SLT CLOUDY Urine pH 7.0 (5.0-8.0) Ur Specific [place] 1.020 (1.001-1.035) Urine Protein NEGATIVE (NEGATIVE) mg/dL Urine Glucose (UA) 250 H (NEGATIVE) mg/dL Urine Ketones TRACE H (NEGATIVE) mg/dL Urine Occult Blood NEGATIVE (NEGATIVE) Urine Nitrite POSITIVE H (NEGATIVE) Urine Bilirubin NEGATIVE (NEGATIVE) Urine Urobilinogen 2.0 H (<2.0) EU/dL Ur Leukocyte Esterase NEGATIVE (NEGATIVE) Urine RBC 0-2 (0-2/HPF) Urine WBC 3-6 (0-5/HPF) Ur Epithelial Cells FEW (NONE-FEW) Urine Bacteria 3+ H (NEGATIVE) Urine HCG, Qual NEGATIVE (NEGATIVE) 03/14/21 Range/Units 00:45 WBC (4.0-11.0) K/uL RBC (4.30-5.90) M/uL Hgb (12.0-16.0) g/dL Hct (36.0-46.0) % MCV (80.0-98.0) fL MCH (27.0-32.0) pg MCHC (31.0-37.0) g/dL RDW Std Deviation (28.0-62.0) fl RDW Coeff of Shaun (11.0-15.0) % Plt Count (150-400) K/uL MPV (7.40-12.00) fL Neut % (Auto) (48.0-80.0) % Lymph % (Auto) (16.0-40.0) % Jack % (Auto) (0.0-15.0) % Eos % (Auto) (0.0-7.0) % Baso % (Auto) (0.0-1.5) % Neut # (Auto) (1.4-5.7) K/uL Lymph # (Auto) (0.6-2.4) K/uL Jack # (Auto) (0.0-0.8) K/uL Eos # (Auto) (0.0-0.7) K/uL Baso # (Auto) (0.0-0.1) K/uL Sodium 138 (136-145) mmol/L Potassium 3.5 (3.5-5.1) mmol/L Chloride 100 (98-107) mmol/L Carbon Dioxide 28.6 (21.0-32.0) mmol/L BUN 12 (7.0-18.0) mg/dL Creatinine 0.8 (0.6-1.0) mg/dL Est Cr Clr Drug Dosing 92.83 mL/min Estimated GFR (MDRD) > 60.0 ml/min Glucose 147 H (74-106) mg/dL Calcium 8.5 (8.5-10.1) mg/dL Total Bilirubin 0.6 (0.2-1.0) mg/dL AST 13 L (15-37) IU/L ALT 20 (14-63) IU/L Alkaline Phosphatase 94 (46-116) U/L Total Protein 7.1 (6.4-8.2) g/dL Albumin 3.8 (3.4-5.0) g/dL Globulin 3.3 (2.6-4.0) g/dL Albumin/Globulin Ratio 1.2 (0.9-1.6) Lipase 115 (73-393) U/L Urine Color Urine Appearance Urine pH (5.0-8.0) Ur Specific [place] (1.001-1.035) Urine Protein (NEGATIVE) mg/dL Urine Glucose (UA) (NEGATIVE) mg/dL Urine Ketones (NEGATIVE) mg/dL Urine Occult Blood (NEGATIVE) Urine Nitrite (NEGATIVE) Urine Bilirubin (NEGATIVE) Urine Urobilinogen (<2.0) EU/dL Ur Leukocyte Esterase (NEGATIVE) Urine RBC (0-2/HPF) Urine WBC (0-5/HPF) Ur Epithelial Cells (NONE-FEW) Urine Bacteria (NEGATIVE) Urine HCG, Qual (NEGATIVE) Meds: Medications Generic Name Dose Route Start Last Admin Trade Name Freq PRN Reason Stop Dose Admin Sodium Chloride 10 ml 03/14/21 00:04 03/14/21 00:48 Sodium Chloride 0.9% 10 Ml Syringe FLUSH 10 ml ASDIRECTED PRN Administration Keep Vein Open Sodium Chloride 2.5 ml 03/14/21 00:04 03/14/21 00:48 Sodium Chloride 0.9% 2.5 Ml Syringe FLUSH 2.5 ml ASDIRECTED PRN Administration Keep Vein Open Discontinued Medications Generic Name Dose Route Start Last Admin Trade Name Freq PRN Reason Stop Dose Admin Sodium Chloride 1,000 mls @ 999 mls/hr 03/14/21 00:04 03/14/21 00:48 Normal Saline IV 03/14/21 01:04 999 mls/hr .Bolus ONE Administration Nitrofurantoin Macrocrystals 100 mg 03/14/21 01:10 03/14/21 01:17 Nitrofurantoin Monohydrate/Macrocrystalline 100 Mg Cap PO 03/14/21 01:11 100 mg ONETIME ONE Administration Ondansetron HCl 4 mg 03/14/21 00:04 03/14/21 00:52 Ondansetron 4 Mg/2 Ml Sdv IVPUSH 03/14/21 00:05 4 mg ONETIME ONE Administration Departure - Departure Time of Disposition: 01:24 Disposition: Home, Self-Care 01 Condition: Good Clinical Impression: Abdominal pain Qualifiers: Abdominal location: right upper quadrant Qualified Code(s): R10.11 - Right upper quadrant pain Urinary tract infection Qualifiers: Urinary tract infection type: site unspecified Hematuria presence: without hematuria Qualified Code(s): N39.0 - Urinary tract infection, site not specified - Discharge Information Instructions: Urinary Tract Infection, Adult, [id number], Abdominal Pain, Adult Referrals: Concepcion Martino DO [Primary Care Provider] - Additional Instructions: Be startedYour seen and evaluated in ER today secondary to signs and symptoms consistent with urinary tract infection. On Macrobid to take twice a day for 7 days to treat the infection. You also get started on Pyridium to help you with your symptoms for the next 2 days. The Pyridium will turn the color of urine orange. Please return the ER if your pain starts to migrate your right lower quadrant, develop worsening pain or any other new or concerning symptoms. Please make an appointment see your family doctor in 2 to 3 days for reevaluation. The following information is given to patients seen in the emergency department who are being discharged to home. This information is to outline your options for follow-up care. We provide all patients seen in our emergency department with a follow-up referral. The need for follow-up, as well as the timing and circumstances, are variable depending upon the specifics of your emergency department visit. If you don't have a primary care physician on staff, we will provide you with a referral. We always advise you to contact your personal physician following an emergency department visit to inform them of the circumstance of the visit and for follow-up with them and/or the need for any referrals to a consulting specialist. The emergency department will also refer you to a specialist when appropriate. This referral assures that you have the opportunity for follow-up care with a specialist. All of these measure are taken in an effort to provide you with optimal care, which includes your follow-up. Under all circumstances we always encourage you to contact your private physician who remains a resource for coordinating your care. When calling for follow-up care, please make the office aware that this follow-up is from your recent emergency room visit. If for any reason you are refused follow-up, please contact the [facility] Emergency Department at and asked to speak to the emergency department charge nurse. [facility] [address] [place] [id number] [facility] [address] [place] [id number] Sepsis Event Note (ED) - Focused Exam Vital Signs: Vital Signs Temp Pulse Resp BP Pulse Ox 03/14/21 01:19 96.8 F L 72 16 102/63 100 03/13/21 23:51 96.5 F L 84 16 97/58 L 98 03/13/21 23:33 98.7 F 99 18 95/60 98 - My Orders Last 24 Hours: My Active Orders 03/14/21 00:00 CULTURE URINE [MREF] Stat 03/14/21 00:04 Sodium Chloride 0.9% [Saline Flush] 10 ml FLUSH ASDIRECTED PRN Sodium Chloride 0.9% [Saline Flush] 2.5 ml FLUSH ASDIRECTED PRN Saline Lock Insert [OM.PC] Stat - Assessment/Plan Last 24 Hours: My Active Orders 03/14/21 00:00 CULTURE URINE [MREF] Stat 03/14/21 00:04 Sodium Chloride 0.9% [Saline Flush] 10 ml FLUSH ASDIRECTED PRN Sodium Chloride 0.9% [Saline Flush] 2.5 ml FLUSH ASDIRECTED PRN Saline Lock Insert [OM.PC] Stat
[2021-03-14 01:35] VITALS: PULSE 68
== END 2021-03-14 01:37 | disposition home or self-care (01) ==
LOC: MW.ED 22:39
DX: N39.0 Urinary tract infection, site not specified (principal); Z88.2 Allergy status to sulfonamides; Z91.040 Latex allergy status; Z91.048 Other nonmedicinal substance allergy status; Z88.8 Allergy status to other drugs, medicaments and biological substances
CPT/HCPCS: 36415; 80053; 81001; 81025; 83690; 85025; 87086; 87088; 87186; 96374; 99284; A9270; J2405; J7030

== ENCOUNTER 2021-06-12 19:29 | Emergency (ER) | payer BC ==
[2021-06-12 19:40] VITALS: BP 100/68; PULSE 96
== END 2021-06-12 21:02 | disposition left against medical advice (07) ==
LOC: MW.ED 19:29
DX: M25.572 Pain in left ankle and joints of left foot (principal); Z53.21 Procedure and treatment not carried out due to patient leaving prior to being seen by health care provider

== ENCOUNTER 2021-09-21 12:02 | Emergency (ER) | payer BC ==
[2021-09-21] MEDS ORDERED: Sodium Chloride 0.9% 1,000 ML IV ONE (12:17)
[2021-09-21 13:08] LABS: BLOOD UREA NITROGEN,BUN 11 mg/dL (7.0-18.0); CARBON DIOXIDE,CO2 23.7 mmol/L (21.0-32.0); CHLORIDE,CL 106 mmol/L (98-107); ESTIMATED GFR > 60.0 ml/min; GLUCOSE RANDOM 195 mg/dL (74-106); SODIUM,NA 141 mmol/L (136-145)
[2021-09-21 13:17] LABS: CORONAVIRUS COVID-19 NAA NEGATIVE (NEGATIVE); INFLUENZA A NAA NEGATIVE (NEGATIVE); INFLUENZA B NAA NEGATIVE (NEGATIVE)
[2021-09-21] MEDS ORDERED: 50% Dextrose in Water 50 ML Syringe IVPUSH PRN (13:36)
[2021-09-21] MEDS ORDERED: Insulin Regular, Human 100 Units/ML 10 ML Vial SUBCUT ONE (13:36)
[2021-09-21] MEDS ORDERED: Glucagon,Human Recombinant 1 MG Vial IM PRN (13:36)
[2021-09-21 14:33] VITALS: BP 103/55; PULSE 72
== END 2021-09-21 14:18 | disposition home or self-care (01) ==
LOC: MW.ED 12:02
DX: R55 Syncope and collapse (principal); K21.9 Gastro-esophageal reflux disease without esophagitis; E10.8 Type 1 diabetes mellitus with unspecified complications; Z88.2 Allergy status to sulfonamides; Z91.040 Latex allergy status; Z20.822 Contact with and (suspected) exposure to COVID-19; Z79.899 Other long term (current) drug therapy
CPT/HCPCS: 0240U; 36415; 70450; 80053; 81003; 82803; 82947; 83605; 83735; 84484; 84703; 85025; 93005; 99284; J7030; 93010

== ENCOUNTER 2022-06-10 08:01 | Emergency (ER) | payer BC ==
[2022-06-10] MEDS ORDERED: Sodium Chloride 0.9% 1,000 ML IV ONE (08:13)
[2022-06-10] MEDS ORDERED: Sodium Chloride 0.9% 10 ML Syringe FLUSH PRN (08:13)
[2022-06-10] MEDS ORDERED: Sodium Chloride 0.9% 2.5 ML Syringe FLUSH PRN (08:13)
[2022-06-10 09:05] LABS: BLOOD UREA NITROGEN,BUN 12 mg/dL (7.0-18.0); CARBON DIOXIDE,CO2 26.5 mmol/L (21.0-32.0); CHLORIDE,CL 104 mmol/L (98-107); GLUCOSE RANDOM 225 mg/dL (74-106); POTASSIUM,K 3.8 mmol/L (3.5-5.1); SODIUM,NA 139 mmol/L (136-145)
[2022-06-10 09:14] LABS: ESTIMATED GFR 122 mL/min (>60)
[2022-06-10 13:04] VITALS: BP 96/56; PULSE 56
== END 2022-06-10 13:05 | disposition home or self-care (01) ==
LOC: MW.ED 08:01
DX: N93.9 Abnormal uterine and vaginal bleeding, unspecified (principal); Z88.2 Allergy status to sulfonamides; Z91.048 Other nonmedicinal substance allergy status; Z91.040 Latex allergy status
CPT/HCPCS: 36415; 76817; 80053; 81001; 84702; 85025; 86900; 86901; 96360; 99284; J3490; J7030

== ENCOUNTER 2022-09-02 12:42 | Emergency (ER) | payer BC ==
[2022-09-02] MEDS ORDERED: Lactated Ringers 2,000 ML IV ONE (12:59)
[2022-09-02] MEDS ORDERED: Sodium Chloride 0.9% 10 ML Syringe FLUSH PRN (12:59)
[2022-09-02] MEDS ORDERED: Sodium Chloride 0.9% 2.5 ML Syringe FLUSH PRN (12:59)
[2022-09-02 13:57] LABS: CARBON DIOXIDE,CO2 27.9 mmol/L (21.0-32.0); POTASSIUM,K 3.7 mmol/L (3.5-5.1)
[2022-09-02] MEDS ORDERED: 50% Dextrose in Water 50 ML Syringe IVPUSH PRN (14:17)
[2022-09-02] MEDS ORDERED: Glucagon,Human Recombinant 1 MG Vial IM PRN (14:17)
[2022-09-02] MEDS ORDERED: Insulin Regular, Human 100 Units/ML 10 ML Vial SUBCUT ONE (14:17)
[2022-09-02 15:37] VITALS: BP 122/75; PULSE 78
== END 2022-09-02 15:35 | disposition home or self-care (01) ==
LOC: MW.ED 12:42
DX: E86.0 Dehydration (principal); E10.65 Type 1 diabetes mellitus with hyperglycemia; Z88.2 Allergy status to sulfonamides; Z91.048 Other nonmedicinal substance allergy status; Z88.1 Allergy status to other antibiotic agents; Z91.040 Latex allergy status; Z79.4 Long term (current) use of insulin
CPT/HCPCS: 36415; 80048; 81003; 81025; 82803; 82947; 83690; 83735; 84100; 96360; 96361; 99284; J3490; J7120; J1815-GY

== ENCOUNTER 2024-07-25 06:54 | Day surgery (SDC) | payer BC ==
[~2024-07-25 06:54] MED LIST changes: -Bupivacaine 0.5% 30 ML SDV ONE; -Lactated Ringers 1,000 ML IV SCH; -Meropenem 1 GM in Sodium Chloride 0.9% 100 ML IV ONE; +Sodium Chloride 0.9% 20 ML SDV IV PRN
[2024-07-25] MEDS ORDERED: Ondansetron 4 MG/2 ML SDV ONE (07:12)
[2024-07-25] MEDS ORDERED: fentaNYL 100 MCG/2 ML SDV ONE (07:13)
[2024-07-25] MEDS ORDERED: propofoL 500 MG/50 ML 50 ML ONE (07:13)
[2024-07-25] MEDS ORDERED: Midazolam 1 MG/ML 2 ML SDV ONE (07:14)
[2024-07-25] MEDS ORDERED: Lidocaine 2% 11 ML Jelly Filled Syringe ONE (07:17)
[2024-07-25] MEDS ORDERED: Bupivacaine 0.5% 30 ML SDV ONE (07:17)
[2024-07-25] MEDS ORDERED: Chloroprocaine 3% 30 MG/ML 20 ML SDV ONE (07:20)
[2024-07-25] MEDS ORDERED: Clindamycin Phosphate in D5W 50 ML IV ONE (07:24)
[2024-07-25] MEDS: Lactated Ringers 1,000 ML IV SCH (07:26)
[2024-07-25] MEDS: Clindamycin Phosphate in D5W 900 MG in Premix Bag 1 BAG IV ONE (07:32)
[2024-07-25] MEDS ORDERED: ePHEDrine 50 MG/ML SDV ONE (08:19)
[2024-07-25] MEDS ORDERED: Ketorolac 30 MG/ML SDV ONE (08:26)
[2024-07-25] MEDS ORDERED: Magnesium Sulfate (4.06 MEQ/ML) 5 GM/10 ML SDV ONE (08:39)
[2024-07-25] MEDS ORDERED: Metoclopramide 10 MG/2 ML SDV IVPUSH PRN (08:46)
[2024-07-25] MEDS ORDERED: HYDROmorphone 1 MG/ML Syringe IVPUSH PRN (08:46)
[2024-07-25] MEDS ORDERED: Morphine 2 MG/ML SYRINGE IVPUSH PRN (08:46)
[2024-07-25] MEDS ORDERED: Phenylephrine HCl In 0.9% NaCl 1 MG/10 ML Syringe IVPUSH PRN (08:46)
[2024-07-25] MEDS ORDERED: Ondansetron 4 MG/2 ML SDV IVPUSH PRN (08:46)
[2024-07-25] MEDS ORDERED: Naloxone 0.4 MG/ML SDV IVPUSH PRN (08:46)
[2024-07-25] MEDS ORDERED: fentaNYL 50 MCG/ML SDV IVPUSH PRN (08:46)
[2024-07-25] MEDS ORDERED: Albuterol 0.083% 2.5 MG/3 ML Neb Soln NEB PRN (08:46)
[2024-07-25 10:15] VITALS: PULSE 72
[2024-07-25 10:36] VITALS: BP 114/68
== END 2024-07-25 10:35 | disposition home or self-care (01) ==
LOC: MW.SDS 06:54
PROVIDERS: ATTEND Surgery
DX: K64.5 Perianal venous thrombosis (principal); J45.909 Unspecified asthma, uncomplicated; E10.9 Type 1 diabetes mellitus without complications; K21.9 Gastro-esophageal reflux disease without esophagitis; F17.290 Nicotine dependence, other tobacco product, uncomplicated; Z79.899 Other long term (current) drug therapy; Z88.2 Allergy status to sulfonamides; Z91.040 Latex allergy status; Z91.048 Other nonmedicinal substance allergy status
CPT/HCPCS: 46260; 81025; A9270; J0131; J0665; J0736; J1885; J2250; J2401; J2704; J3010; J7120; J2405; J3490